=== PATIENT | female | born 1955 | race Caucasian/White ===

== ENCOUNTER 2022-03-28 16:11 | Inpatient (IN) ==
--- NOTE | 2022-03-28 16:23 | ED Triage Note ---
Date of Service March 28, 2022 History of Present Illness This patient was briefly evaluated while in triage. An abbreviated physical exam was performed. This patient is a 67-year-old Female with past medical history of asthma, hydrocephalus, hypothyroidism, HTN, who presents to the ED for evaluation of "Dr. Rosales sent me over. My blood pressure is low and I might have a blood clot in my right leg." Physical Exam VITALS: Vitals are noted on the nurse's note and reviewed by myself. GENERAL: This is a 67 year old female, in no acute distress, nondiaphoretic, well-developed well-nourished. SKIN: Edema of the mid-distal right calf HEAD: Normocephalic atraumatic. NECK: No lymphadenopathy. Cervical spine is nontender. No JVD. MUSCULOSKELETAL: No tenderness to palpation. Normal gait. NEURO: Patient was alert and oriented to person place and time. No focal neurological deficits. Initial orders for labs and / or imaging were placed and patient was placed in the waiting area until a bed is available. Please see further documentation for the full ED course. MDM / Impression Impression Impression: Acute hypotension
[2022-03-28] MEDS ORDERED: SODIUM CHLORIDE 0.9% 1000ML 1,000 ML IV ONE (16:35)
--- NOTE | 2022-03-28 16:45 | Emergency Department Note ---
History of Present Illness General Chief complaint: Hypotension Stated complaint: BLOOD PRESSURE VERY LOW. REF BY DR WALL Time Seen by Provider: 03/28/22 16:24 History of Present Illness 67-year-old female presents to the ED with a chief complaint of low blood pressure. The patient also reports feeling tired, lightheaded with standing that improves with lying flat. Hard time keeping her balance. Nausea and vomiting. Chronic diarrhea. She states that her nausea and vomiting has been going on daily for a couple of months. She vomits at least once a day and sometimes more. The patient denies any black or bloody stools. She does have a history of hypertension and has been taking her blood pressure pills. The patient reports occasional shortness of breath and chest pain but she reports this is related to her chronic asthma and COPD history. She does continue to smoke. She has chronic diarrhea related to previous colectomy and short gut syndrome. The patient's lightheadedness started a couple of days ago. She had a routine visit with her PCP today who found her to be hypotensive and sent her to the ER for evaluation. Home Medications Medication Instructions Recorded Confirmed Type gabapentin 600 mg tablet 600 mg PO HS 06/08/18 03/28/22 History levothyroxine 150 mcg tablet 150 mcg PO DAILY 06/08/18 03/28/22 History risperidone 2 mg tablet 2 mg PO HS 06/08/18 03/28/22 History sucralfate 1 gram tablet (Carafate) 1 g PO ACHS 06/08/18 03/28/22 History venlafaxine 150 mg 150 mg PO HS 06/08/18 03/28/22 History capsule,extended release 24 hr (Effexor XR) venlafaxine 75 mg capsule,extended 75 mg PO QAM 06/08/18 03/28/22 History release 24 hr (Effexor XR) diphenoxylate-atropine 2.5 1 tab PO Q6H PRN #60 tab 07/25/18 03/28/22 Rx mg-0.025 mg tablet (Lomotil) Allergies Allergy/AdvReac Type Severity Reaction Status Date / Time No Known Allergies Allergy Verified 10/14/18 13:02 Past Med/Surg History Medical History (Updated 03/28/22 @ 18:54 by Juan José Reyes DO) Asthma Asthma Bipolar depression Chronic distal aortic occlusion Depression GERD (gastroesophageal reflux disease) Herpes labialis Hydrocephalus Hypertension Hypothyroid Hypothyroidism Iliac artery occlusion, left Ischemic necrosis of small bowel Peritonitis (acute) generalized Protein calorie malnutrition Small bowel obstruction Tobacco abuse disorder Vasculopathy Surgical History H/O exploratory laparotomy H/O tubal ligation History of bowel resection History of cholecystectomy History of tubal ligation Hx laparoscopic cholecystectomy Status post small bowel resection 06/06/18 Dr. Rosario exp lap with SBO, ileostomy mucous fistula Family History Mother Uterine cancer Father Emphysema of lung Social History Smoking Status: Current every day smoker Years Smoked: 40; Cigarettes Per Day: 10; Second Hand Exposure: No; Hx Alcohol Use: No Hx Substance Use: Yes Preferred Language: Sudanese Communication Ability: Effective Visual Impairment: No Limitations [employer] Business Intelligence Developer Required: No Beliefs That Will Affect Care: None marital status: marital status details: Jordy Chu Current Living Situation: Spouse current occupational status: employed current occupation: [employer] Feels Safe at Home: Yes Assistive Devices: Denture - Upper, Denture - Lower and Glasses Review of Systems A total of 10 systems reviewed and were otherwise negative Physical Exam Vital Signs Vital Signs - 24 hr 03/28/22 16:21 03/28/22 16:24 03/28/22 16:40 Temperature 36.1 C L Temperature Source Temporal Artery Scan Pulse Rate 94 H 84 Pulse Rate [Right Finger] 80 Pulse Rhythm Regular Regular Pulse Rhythm [Right Finger] Regular Pulse Strength Normal Pulse Strength [Right Finger] Normal Respiratory Rate 20 19 24 Respiratory Effort / Characteristics Non-Labored Spontaneous Non-Labored Spontaneous Respiratory Depth Normal Normal Respiratory Pattern Regular Regular Blood Pressure 72/50 L Blood Pressure [Right Arm] 71/52 L Blood Pressure Mean 57 Blood Pressure Mean [Right Arm] 58 Blood Pressure Position Sitting Blood Pressure Position [Right Arm] Lying Pulse Oximetry 95 98 94 Oxygen Delivery Method Room Air Room Air Room Air Sepsis Recent Fever Within 48 Hours No Sepsis New/Unexplained Change in Mental Status No Sepsis Action Taken by Nursing No Action Required 03/28/22 17:20 03/28/22 18:15 Temperature Temperature Source Pulse Rate Pulse Rate [Right Finger] 97 H 88 Pulse Rhythm Pulse Rhythm [Right Finger] Regular Regular Pulse Strength Pulse Strength [Right Finger] Normal Normal Respiratory Rate 18 18 Respiratory Effort / Characteristics Non-Labored Spontaneous Non-Labored Spontaneous Respiratory Depth Normal Normal Respiratory Pattern Regular Regular Blood Pressure Blood Pressure [Right Arm] 114/69 116/64 Blood Pressure Mean Blood Pressure Mean [Right Arm] 84 81 Blood Pressure Position Blood Pressure Position [Right Arm] Lying Lying Pulse Oximetry 100 97 Oxygen Delivery Method Room Air Room Air Sepsis Recent Fever Within 48 Hours Sepsis New/Unexplained Change in Mental Status Sepsis Action Taken by Nursing CONSTITUTIONAL/VITAL SIGNS: Reviewed / noted above. GENERAL: Non-toxic in appearance. INTEGUMENTARY: Warm, dry, and [place]. HEAD: Normocephalic. EYES: without scleral icterus or trauma. ENT/OROPHARYNX: clear and moist. LYMPHADENOPATHY/NECK: Is supple without lymphadenopathy or meningismus. RESPIRATORY: Clear to auscultation bilaterally. No increased work of breathing. CARDIOVASCULAR: Regular rate and rhythm. GI/ABDOMEN: Soft and nontender. No organomegaly or pulsatile mass. EXTREMITIES: Warm and well perfused. Pedal edema present bilaterally. BACK: No CVA tenderness. NEUROLOGICAL: Intact without focal deficits. PSYCHIATRIC: normal affect. MUSCULOSKELETAL: Normally developed with good muscle tone. TRIAGE NURSING DOCUMENTATION REVIEWED. Course Administered Medications Discontinued Medications Sodium Chloride (Nss 1000ml) 1,000 mls @ 999 mls/hr IV .Q1H1M ONE Stop: 03/28/22 17:35 Last Admin: 03/28/22 16:53 Dose: 999 mls/hr Documented by: [id number] Magnesium Sulfate/Dextrose (Magnesium Sulfate / D5w) 1 gm in 100 mls @ 200 mls/hr IV Q30M ELEONORA Stop: 03/28/22 18:43 Last Admin: 03/28/22 18:17 Dose: 200 mls/hr Documented by: [id number] Medical Decision Making Differential Diagnosis Differential includes acute coronary syndrome, myocardial infarction, CVA, TIA, anemia, infection, pneumonia, UTI, pyelonephritis, poor nutrition, dehydration, electrolyte disturbance,hypoglycemia. Medical Records Attestation: I reviewed the patient's medical records. Home Medications Current Medication List: was personally reviewed by me Laboratory Data Attestation: I reviewed the patient's lab results. Result diagrams: 03/28/22 16:45 03/28/22 16:45 Lab Results 03/28/22 03/28/22 03/28/22 Range/Units 16:45 16:45 16:45 WBC 8.93 (4.8-10.8) K/ul RBC 4.12 (3.93-5.22) M/uL Hgb 13.6 (12.0-16.0) g/dl Hct 38.9 (34.1-44.9) % MCV 94.4 (80.0-100.0) fL MCH 33.0 (25.0-34.0) pg MCHC 35.0 (32.0-36.0) g/dL RDW Std Deviation 47.4 H (36.4-46.3) fL RDW Coeff of Yosef 13.5 (11.5-14.5) % Plt Count 245 (130-400) K/uL MPV 9.8 (9.4-12.3) fL Immature Gran % (Auto) 0.2 % Neut % (Auto) 64.7 % Lymph % (Auto) 26.8 % Graham % (Auto) 7.6 % Eos % (Auto) 0.3 % Baso % (Auto) 0.4 % Neut # (Auto) 5.77 (1.4-6.5) K/uL Lymph # (Auto) 2.39 (1.2-3.4) K/uL Graham # (Auto) 0.68 (0.24-0.82) K/uL Eos # (Auto) 0.03 (0-0.50) K/uL Baso # (Auto) 0.04 (0-0.2) K/uL Immature Gran # (Auto) 0.02 (0.00-0.02) K/uL PT 11.2 (9.0-12.0) Seconds INR 1.1 (0.9-1.1) APTT 27.4 (21.0-31.0) Seconds PTT Ratio 1.0 Sodium 136 (136-145) mmol/L Potassium 3.7 (3.5-5.1) mmol/L Chloride 100 (98-107) mmol/L Carbon Dioxide 29 (21-32) mmol/L Anion Gap 7 (3-11) BUN 24 H (6-23) mg/dl Creatinine 1.31 H (0.6-1.2) mg/dl Est Cr Clr Drug Dosing 32.3 ml/min Est GFR ( Amer) 49.4 ml/min Est GFR (Non-Af Amer) 42.6 ml/min BUN/Creatinine Ratio 18.3 (10-20) Glucose 81 (70-99(Fasting)) mg/dl Lactate (0.4-2.0) mmol/L Calcium 8.3 L (8.5-10.1) mg/dl Magnesium 0.6 L* (1.7-2.4) mg/dl Total Bilirubin 1.1 H (0.2-1.0) mg/dl AST 14 (13-39) U/L ALT 13 (7-52) U/L Alkaline Phosphatase 87 (34-104) U/L Troponin I High Sens 10.2 (0-14) pg/ml Total Protein 6.5 (6.0-8.3) gm/dl Albumin 3.5 (3.4-5.0) gm/dl Globulin 3.0 (2.5-4.0) gm/dl Albumin/Globulin Ratio 1.2 (0.9-2) SARS-CoV-2, RNA, NAAT (NEGATIVE) 03/28/22 03/28/22 Range/Units 16:45 Unknown WBC (4.8-10.8) K/ul RBC (3.93-5.22) M/uL Hgb (12.0-16.0) g/dl Hct (34.1-44.9) % MCV (80.0-100.0) fL MCH (25.0-34.0) pg MCHC (32.0-36.0) g/dL RDW Std Deviation (36.4-46.3) fL RDW Coeff of Yosef (11.5-14.5) % Plt Count (130-400) K/uL MPV (9.4-12.3) fL Immature Gran % (Auto) % Neut % (Auto) % Lymph % (Auto) % Graham % (Auto) % Eos % (Auto) % Baso % (Auto) % Neut # (Auto) (1.4-6.5) K/uL Lymph # (Auto) (1.2-3.4) K/uL Graham # (Auto) (0.24-0.82) K/uL Eos # (Auto) (0-0.50) K/uL Baso # (Auto) (0-0.2) K/uL Immature Gran # (Auto) (0.00-0.02) K/uL PT (9.0-12.0) Seconds INR (0.9-1.1) APTT (21.0-31.0) Seconds PTT Ratio Sodium (136-145) mmol/L Potassium (3.5-5.1) mmol/L Chloride (98-107) mmol/L Carbon Dioxide (21-32) mmol/L Anion Gap (3-11) BUN (6-23) mg/dl Creatinine (0.6-1.2) mg/dl Est Cr Clr Drug Dosing ml/min Est GFR ( Amer) ml/min Est GFR (Non-Af Amer) ml/min BUN/Creatinine Ratio (10-20) Glucose (70-99(Fasting)) mg/dl Lactate 0.9 (0.4-2.0) mmol/L Calcium (8.5-10.1) mg/dl Magnesium (1.7-2.4) mg/dl Total Bilirubin (0.2-1.0) mg/dl AST (13-39) U/L ALT (7-52) U/L Alkaline Phosphatase (34-104) U/L Troponin I High Sens (0-14) pg/ml Total Protein (6.0-8.3) gm/dl Albumin (3.4-5.0) gm/dl Globulin (2.5-4.0) gm/dl Albumin/Globulin Ratio (0.9-2) SARS-CoV-2, RNA, NAAT NEGATIVE (NEGATIVE) Imaging Data Radiologist's Impression: Venous Doppler Study 03/28/22 16:23 RIGHT LOWER EXTREMITY VENOUS DOPPLER CLINICAL HISTORY: Pain, swelling right calf COMPARISON STUDY: No previous studies for comparison. TECHNIQUE: Sonography of the deep venous system of the right lower extremity was performed. Compression and augmentation were evaluated. FINDINGS: The right common femoral, superficial femoral and popliteal veins were compressible. Augmentation was normal. Flow was shown within the deep calf vessels. IMPRESSION: No evidence of deep venous thrombus within the right lower extremity. ACT 112: Negative or not required by law. Electronically signed by: Benjamin Rodriguez M.D. 03/28/2022 6:22 PM Chest X-Ray 03/28/22 16:24 XR chest 1V portable CLINICAL HISTORY: Hypotension. COMPARISON STUDY: Chest CT July 15, 2018. Chest radiograph July 30, 2018. FINDINGS: Lung volumes are normal. Lungs are clear. There is no pneumothorax or pleural effusion. Cardiac size is normal. Mediastinal contours are normal. There is no evidence for pulmonary edema. Subtle nodular density projecting over the right lower lung is likely artifactual. IMPRESSION: No acute cardiopulmonary findings. ACT 112: Negative or not required by law. Electronically signed by: Benjamin Rodriguez M.D. 03/28/2022 5:18 PM Abdomen/Pelvis CT 03/28/22 16:45 CT abd pelvis wo con CLINICAL HISTORY: n/v daily COMPARISON STUDY: 09/08/2018 CT DOSE: 249.85 mGy.cm TECHNIQUE: Standard CT of the Abdomen and Pelvis was performed without IV contrast. The patient did not receive oral contrast. A dose lowering technique was utilized adhering to the principles of ALARA. FINDINGS: Lung base: The lung bases are clear. Abdominal cavity and bowel: There is no evidence for abdominal mass, adenopathy or ascites. There are 2 small ventral abdominal wall hernia is present, one on the right and one on the left. Loops of small bowel project into these hernias. However, no definite obstruction or incarceration is seen. The stomach is grossly distended with liquid and food stuff. There are moderately dilated loops of small bowel within the lower abdomen and pelvis. The findings are characteristic of partial small bowel obstruction. There is evidence of previous partial small bowel resection in the presence of adhesions is suggested. However, exact transition zone is not identified. There is prominent fecal material seen throughout the colon characteristic of fecal stasis. Liver: The liver is homogeneous in attenuation on these limited noncontrast images.. Spleen: The spleen is homogeneous in attenuation on these limited noncontrast images. Pancreas: The pancreas is homogeneous in attenuation on these limited noncontr ast images. Gall Bladder: Not visualized Adrenal glands: The adrenal glands are normal in size and attenuation on these limited noncontrast images. Kidneys: The kidneys are homogeneous in attenuation on these limited noncontrast images. There is no evidence for gross renal mass, calculus or hydronephrosis bilaterally. Bladder: There is no evidence for focal bladder wall thickening, calculus or diverticulum. : There is no evidence for pelvic mass or adenopathy. Vasculature: There is no evidence for focal aneurysmal dilatation of the abdo russell aorta. Atherosclerotic calcification is present. Osseous structures: There is no acute osseous pathology. Degenerative changes are seen within the spine. IMPRESSION: 1. Gross distention of the stomach with liquid and food stuff. There is also moderate dilatation of the mid to distal small bowel loops with findings characteristic of partial small bowel obstruction. Etiology is not definitely seen but is suspicious for adhesions with previous partial small bowel resection noted. 2. There are 2 ventral abdominal wall hernias, one in the left and one on the right. The small bowel loops extend into the hernia sacs with no definite obstruction or incarceration. These are more upstream from the dilated loops of small bowel. 3. Evidence for mild to moderate fecal stasis within the colon. ACT 112: Negative or not required by law. Electronically signed by: Chester Torres M.D. 03/28/2022 5:31 PM ECG Data Attestation: I personally reviewed and interpreted this ECG as follows: Additional Comments: Twelve-lead EKG: Per my interpretation there is a normal sinus rhythm at a rate of 84. No ST elevation. No PVCs. Normal QTC. MDM Narrative 67-year-old female presents with hypotension from the PCPs office after routine visit. She does report feeling nausea and vomiting daily for couple of months. She was feeling tired and lightheaded with standing. She has chronic diarrhea related to short gut syndrome secondary to a previous colectomy. Initial vital signs here reveal a blood pressure of 71/52. Heart rate is 80. She is able to stand without syncope but does feel lightheaded. Eye exam reveals some pedal edema. No abdominal tenderness. Lungs reveal some scattered wheezes bilaterally. She does have a chronic COPD history. EKG shows normal sinus rhythm. Chest x-ray did not show acute process. CT scan of the abdomen pelvis shows partial small bowel obstruction. The patient's magnesium is 0.6. BUN is 24. Troponin was negative. CBC is unremarkable. The patient was treated with a liter of IV fluid. Her blood pressure did improve with this. Because of her abnormal test results, she will be seen by the hospitalist for further evaluation and care. Impression & Plan Acute hypotension, Partial obstruction of small intestine, Vomiting, Hypomagnesemia Discharge Plan Visit Data Chief Complaint: Hypotension Stated Complaint: BLOOD PRESSURE VERY LOW. REF BY DR WALL ED Provider: Juan José Reyes Discharge Problem: Acute hypotension, Partial obstruction of small intestine, Vomiting, Hypomagnesemia Patient Disposition: Being Evaluated by Hospitalist Forms Stand Alone Forms: My [facility] Prescriptions Prescriptions: No Action sucralfate [Carafate] 1 gram Tablet 1 g PO ACHS RF: 0 Pulmicort Flexhaler 180 mcg/actuation Aerosol Powdr Breath Activated 1 inh INHALATION BID RF: 0 gabapentin 600 mg Tablet 600 mg PO HS RF: 0 levothyroxine 150 mcg Tablet 150 mcg PO DAILY RF: 0 oxybutynin chloride 5 mg Tablet 5 mg PO TID RF: 0 risperidone 2 mg Tablet 2 mg PO HS RF: 0 venlafaxine [Effexor XR] 150 mg Capsule,Extended Release 24hr 150 mg PO HS RF: 0 venlafaxine [Effexor XR] 75 mg Capsule,Extended Release 24hr 75 mg PO QAM RF: 0 ProAir RespiClick 90 mcg/actuation Aerosol Powdr Breath Activated 2 puff INHALATION Q4H PRN (Reason: Wheezing) RF: 0 diphenoxylate-atropine [Lomotil] 2.5-0.025 mg tablet 1 tab PO Q6H PRN (Reason: diarrhea) Qty: 60 RF: 0 verapamil 40 mg tablet 40 mg PO TID Qty: 90 RF: 5 ondansetron HCl [Zofran] 4 mg Tablet 4 mg PO Q8H PRN (Reason: Nausea) RF: 0 pantoprazole [Protonix] 40 mg Tablet,Delayed Release (Dr/Ec) 40 mg PO DAILY RF: 0 ranitidine HCl [Zantac] 150 mg Tablet 150 mg PO BID RF: 0 oxycodone 5 mg tablet 5 mg PO Q4H PRN (Reason: Pain) RF: 0 rivaroxaban 15 mg (42)- 20 mg (9) Tablets,Dose Pack 15 mg PO DAILY RF: 0 hydrocodone-acetaminophen [[place]] 5-325 mg tablet 1 tab PO Q6H PRN (Reason: pain) RF: 0 Referrals Referrals: Jacek Wall MD [Primary Care Provider] -
[2022-03-28 17:06] LABS: Basophils # (auto) 0.04 K/uL (0-0.2); Basophils % (auto) 0.4 %; Eosinophils # (auto) 0.03 K/uL (0-0.50); Eosinophils % (auto) 0.3 %; Hematocrit (blood only) 38.9 % (34.1-44.9); Hemoglobin 13.6 g/dl (12.0-16.0); Immature Granulocytes # (auto) 0.02 K/uL (0.00-0.02); Immature Granulocytes % (auto) 0.2 %; Lymphocytes # (auto) 2.39 K/uL (1.2-3.4); Lymphocytes % (auto) 26.8 %; Mean Corpuscular Volume 94.4 fL (80.0-100.0); Mean Platelet Volume 9.8 fL (9.4-12.3); Monocytes # (auto) 0.68 K/uL (0.24-0.82); Monocytes % (auto) 7.6 %; Neutrophils # (auto) 5.77 K/uL (1.4-6.5); Neutrophils % (auto) 64.7 %; Platelet Count 245 K/uL (130-400); RDW Coefficient of Variation 13.5 % (11.5-14.5); RDW Standard Deviation 47.4 fL (36.4-46.3); Red Blood Count 4.12 M/uL (3.93-5.22); White Blood Count 8.93 K/ul (4.8-10.8)
[2022-03-28 17:12] LABS: INR 1.1 (0.9-1.1); Partial Thromboplastin Time 27.4 Seconds (21.0-31.0); Prothrombin Time 11.2 Seconds (9.0-12.0)
--- NOTE | 2022-03-28 17:19 | XRay Report ---
XR chest 1V portable CLINICAL HISTORY: Hypotension. COMPARISON STUDY: Chest CT July 15, 2018. Chest radiograph July 30, 2018. FINDINGS: Lung volumes are normal. Lungs are clear. There is no pneumothorax or pleural effusion. Car diac size is normal. Mediastinal contours are normal. There is no evidence for pulmonary edema. Subtl e nodular density projecting over the right lower lung is likely artifactual. IMPRESSION: No acute cardiopulmonary findings. ACT 112: Negative or not required by law. Electronically signed by: Benjamin Rodriguez M.D. 03/28/2022 5:18 PM
[2022-03-28 17:22] LABS: BUN Creatinine Ratio 18.3 (10-20); Calcium 8.3 mg/dl (8.5-10.1); Creatinine Clr Calc Pharmacy 32.3 ml/min; Est GFR (African American) 49.4 ml/min; Est GFR (Non-African American) 42.6 ml/min; Potassium 3.7 mmol/L (3.5-5.1)
[2022-03-28 17:24] LABS: Albumin Globulin Ratio 1.2 (0.9-2); Albumin Level 3.5 gm/dl (3.4-5.0); Bilirubin,Total 1.1 mg/dl (0.2-1.0); Magnesium 0.6 mg/dl (1.7-2.4); Total Protein 6.5 gm/dl (6.0-8.3)
[2022-03-28 17:29] LABS: Troponin I High Sensitivity 10.2 pg/ml (0-14)
--- NOTE | 2022-03-28 17:33 | CT Scan Report ---
CT abd pelvis wo con CLINICAL HISTORY: n/v daily COMPARISON STUDY: 09/08/2018 CT DOSE: 249.85 mGy.cm TECHNIQUE: Standard CT of the Abdomen and Pelvis was performed without IV contrast. The patient did not receive oral contrast. A dose lowering technique was utilized adhering to the principles of [place]. FINDINGS: Lung base: The lung bases are clear. Abdominal cavity and bowel: There is no evidence for abdominal mass, adenopathy or ascites. There are 2 small ventral abdominal wall hernia is present, one on the right and one on the left. Loops of sma ll bowel project into these hernias. However, no definite obstruction or incarceration is seen. The stomach is grossly distended with liquid and food stuff. There are moderately dilated loops of sm all bowel within the lower abdomen and pelvis. The findings are characteristic of partial small bowel obstruction. There is evidence of previous partial small bowel resection in the presence of adhesion s is suggested. However, exact transition zone is not identified. There is prominent fecal material seen throughout the colon characteristic of fecal stasis. Liver: The liver is homogeneous in attenuation on these limited noncontrast images.. Spleen: The spleen is homogeneous in attenuation on these limited noncontrast images. Pancreas: The pancreas is homogeneous in attenuation on these limited noncontrast images. Gall Bladder: Not visualized Adrenal glands: The adrenal glands are normal in size and attenuation on these limited noncontrast im ages. Kidneys: The kidneys are homogeneous in attenuation on these limited noncontrast images. There is no evidence for gross renal mass, calculus or hydronephrosis bilaterally. Bladder: There is no evidence for focal bladder wall thickening, calculus or diverticulum. : There is no evidence for pelvic mass or adenopathy. Vasculature: There is no evidence for focal aneurysmal dilatation of the abdominal aorta. Atheroscler otic calcification is present. Osseous structures: There is no acute osseous pathology. Degenerative changes are seen within the spi ne. IMPRESSION: 1. Gross distention of the stomach with liquid and food stuff. There is also moderate dilatation of t he mid to distal small bowel loops with findings characteristic of partial small bowel obstruction. E tiology is not definitely seen but is suspicious for adhesions with previous partial small bowel rese ction noted. 2. There are 2 ventral abdominal wall hernias, one in the left and one on the right. The small bowel loops extend into the hernia sacs with no definite obstruction or incarceration. These are more upstr eam from the dilated loops of small bowel. 3. Evidence for mild to moderate fecal stasis within the colon. ACT 112: Negative or not required by law. Electronically signed by: Chester Torres M.D. 03/28/2022 5:31 PM
[2022-03-28] MEDS: MAGNESIUM SULFATE / D5W 1 GM/100 ML BAG IV SCH ×3 (18:17→22:05)
--- NOTE | 2022-03-28 18:24 | Ultrasound Report ---
RIGHT LOWER EXTREMITY VENOUS DOPPLER CLINICAL HISTORY: Pain, swelling right calf COMPARISON STUDY: No previous studies for comparison. TECHNIQUE: Sonography of the deep venous system of the right lower extremity was performed. Compress ion and augmentation were evaluated. FINDINGS: The right common femoral, superficial femoral and popliteal veins were compressible. Augme ntation was normal. Flow was shown within the deep calf vessels. IMPRESSION: No evidence of deep venous thrombus within the right lower extremity. ACT 112: Negative or not required by law. Electronically signed by: Benjamin Rodriguez M.D. 03/28/2022 6:22 PM
[2022-03-28] MEDS ORDERED: CALCIUM GLUCONATE 1,000 MG/60 ML BAG IV STA (19:00)
--- NOTE | 2022-03-28 19:07 | History & Physical Report ---
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 Partial obstruction of small intestine History of prior ischemic small bowel obstruction status post small bowel resection Admit to telemetry Consult general surgery Conservative management for now, n.p.o. and gentle IV fluid Patient currently is not vomiting therefore will not place NG tube Hold nonessential meds hold Imodium and lomtil given bowel obs Hypomagnesemia Critical at 0.6 Received 2 g in ED Will add additional 2 g on floor Repeat mag at 0000 7/7 Likely multifactorial including malabsorption in setting of small bowel resection, PPI use, reported chronic diarrhea Will place on mag oxide 400 mg twice daily Hypocalcemia 1 g calcium gluconate ordered Acute hypotension JOSHUA Creatinine 1.31, baseline 0.7 Likely secondary to GI loss as well as medications including Lasix and lisinop ril Will hold for now gentle NSS + KCL @ 75cc/hr x 2 L, re assess tomorrow need for additional fluid Diastolic CHF, compensated Patient recently hospitalized in [place] for an acute decompensation of CHF This was her first episode and she was placed on a Lasix 40 mg daily Likely this is too much for her She has not yet established with cardiology, would recommend we refer her to our cardiology at discharge Daily weights, strict I's and O's Hold Lasix and lisinopril HTN hold all oral antihypertensives COPD tobacco abuse on chantix no acute exac continue home inhalers Alcohol abuse Marijuana abuse encourage cessation awss protocol, prn ativan recommend daily thiamine and folic acid when tolerating po Bipolar continue effexor and risperidone DVT ppx: SQ Heparin Dispo: PCU given low mag FULL CODEPCP: History of Present Illness Chief Complaint: Referred by PCP secondary to hypotension Primary Care Provider: Jacek Rosales MD This is a 67-year-old female who has significant past medical history of COPD, HTN, hypothyroidism, bipolar disorder, history of ischemic small bowel obstr uction status post small bowel resection with ileostomy and eventual reversal, chronic diarrhea, chronic nausea and vomiting who presents to ED at the referral of PCP secondary to hypotension. Of significance patient was hospitalized at the end of January 2022 in [facility] and was diagnosed with acute diastolic CHF. She was diuresed and placed on oral Lasix at discharge. She also had hypokalemia and was placed on potassium supplement. She had hospital follow-up with PCP. Echocardiogram during hospitalization revealed EF 70 to 75% with grade 1 diastolic dysfunction. Today she was seen by PCP just for repeat follow-up and blood work secondary to being on diuretic. She states her weight has been up from 16- 19. She has been compliant with her medications. In clinic today she was found to be significantly hypotensive and orthostatic with BP 60 over 40s. She was referred to ED. Over the last week she complains of feeling unwell. She does complain of general lightheaded and dizziness but no nico syncope. She denies any fever, chills, sweats, chest pain, cough, hemoptysis, palpitations, abdominal pain, melena, hematochezia, dysuria, increased urgency or frequency with urination. She does have chronic shortness of breath secondary to COPD. She continues to smoke but is taking Chantix and trying to reduce her tobacco use. She does drink 3-4 1 ounce shots of tequila daily. Her last drink was yesterday. She also smokes marijuana daily last use was this morning. She does complain of chronic nausea and vomiting. She typically vomits once a day, but over the past week it has been approximately 3- 4 times a day. She also has chronic loose stool for which she takes Lomotil and Imodium for. In ED patient was significantly hypotensive with blood pressures in the 70s. She received a 500 mL bolus with improvement of blood pressures. Her magnesium was also found to be critical at 0.6. She was started on magnesium supplementation. CT abdomen pelvis revealed distended fluid and debris-filled stomach and partial small bowel obstruction likely related to adhesions. Allergies Allergy/AdvReac Type Severity Reaction Status Date / Time No Known Allergies Allergy Verified 10/14/18 13:02 Home Medications Medication Instructions Recorded Confirmed Type gabapentin 600 mg tablet 600 mg PO HS 06/08/18 03/28/22 History levothyroxine 150 mcg tablet 150 mcg PO DAILY 06/08/18 03/28/22 History risperidone 2 mg tablet 2 mg PO HS 06/08/18 03/28/22 History sucralfate 1 gram tablet (Carafate) 1 g PO ACHS 06/08/18 03/28/22 History venlafaxine 150 mg 150 mg PO HS 06/08/18 03/28/22 History capsule,extended release 24 hr (Effexor XR) venlafaxine 75 mg capsule,extended 75 mg PO QAM 06/08/18 03/28/22 History release 24 hr (Effexor XR) albuterol sulfate 90 mcg/actuation 1 inh INHALATION QID PRN 03/28/22 03/28/22 History aerosol inhaler amlodipine 2.5 mg tablet 2.5 mg PO DAILY 03/28/22 03/28/22 History cyanocobalamin (vitamin B-12) 1,000 mcg PO DAILY 03/28/22 03/28/22 History 1,000 mcg tablet diphenoxylate-atropine 2.5 2.5 mg PO Q6H 03/28/22 03/28/22 History mg-0.025 mg tablet (Lomotil) famotidine 20 mg tablet 20 mg PO BID 03/28/22 03/28/22 History fluticasone furoate 200 1 inh INHALATION DAILY 03/28/22 03/28/22 History mcg-vilanterol 25 mcg/dose inhalation powder (Breo Ellipta) furosemide 40 mg tablet 40 mg PO DAILY 03/28/22 03/28/22 History lisinopril 40 mg tablet 40 mg PO DAILY 03/28/22 03/28/22 History loperamide 2 mg tablet 2 mg PO QID 03/28/22 03/28/22 History pantoprazole 40 mg tablet,delayed 80 mg PO DAILY 03/28/22 03/28/22 History release trospium 60 mg capsule,extended 60 mg PO DAILY 03/28/22 03/28/22 History release 24 hr varenicline 1 mg tablet 1 mg PO BID 03/28/22 03/28/22 History Past Med/Surg History Medical History (Updated 03/28/22 @ 21:01 by Lizbeth Fitzgerald PA-C) Asthma Asthma Bipolar depression Chronic distal aortic occlusion Depression GERD (gastroesophageal reflux disease) Herpes labialis Hydrocephalus Hypertension Hypothyroid Hypothyroidism Iliac artery occlusion, left Ischemic necrosis of small bowel Peritonitis (acute) generalized Protein calorie malnutrition Small bowel obstruction Tobacco abuse disorder Vasculopathy Surgical History H/O exploratory laparotomy H/O tubal ligation History of bowel resection History of cholecystectomy History of tubal ligation Hx laparoscopic cholecystectomy Status post small bowel resection 06/06/18 Dr. Rosario exp lap with SBO, ileostomy mucous fistula Family History Mother Uterine cancer Father Emphysema of lung Social History (Updated 03/28/22 @ 20:59 by Lizbeth Fitzgerald PA-C) Smoking Status: Current every day smoker Years Smoked: 40; Cigarettes Per Day: 10; Second Hand Exposure: No; Hx Alcohol Use: Yes Alcohol type: hard liquor Alcohol Intake Frequency Comment: 3-4 1 ounce shots daily Hx Substance Use: Yes Non-Prescribed Medications: Marijuana Non-Prescribed Medications Comment: Daily Last Used Substance: Just Prior to Arrival Preferred Language: Faroese Communication Ability: Effective Visual Impairment: No Limitations Manager [place] Required: No Beliefs That Will Affect Care: None marital status: marital status details: Jordy Chu Current Living Situation: Spouse current occupational status: employed current occupation: [employer] Feels Safe at Home: Yes Assistive Devices: Denture - Upper, Denture - Lower and Glasses Review of Systems Review of Systems: All systems reviewed & are unremarkable except as noted in HPI & below Physical Exam Physical Exam: Constitutional: Chronically ill-appearing female,vitals as above, NAD, sitting up in bed, pleasant, conversing easily Head: Normocephalic, Atraumatic Eyes: PERRL, conjunctivae normal, anicteric sclerae ENMT: external ear and nose normal, oropharynx normal Neck: trachea midline, no thyromegaly normal visual inspection Respiratory: normal respiratory effort, lungs clear to auscultation, no wheeze, rales, rhonchi. Normal insp/exp effort, no accessory muscle use Cardiovascular: RRR, no murmur, no edema Vessels: no JVD or carotid bruit Chest: normal inspection of chest Abdomen: normal bowel sounds, soft, mildly tender to palpation epigastrium, no rebound, no guarding, no rigidity, no hepatosplenomegaly Musculoskeletal: no cyanosis or clubbing, extremities motor strength 5/5 Skin: no rashes, warm and dry normal turgor Neurologic: PERRL, EOMI, accommodation nl, no face palsy, no dysarthria CN's II-XI intact bilaterally and moves all extremities Psychiatric: A+Ox3, euthymic affect Lymphatic: no cervical or axillary lymphadenopathy : deferred Results & Data Results & Data ([facility]) Vital Signs (Past 12 Hours) Vital Signs Temp Pulse Pulse Resp BP BP Pulse Ox 03/28/22 19:00 80 87 19 100/42 L 97 03/28/22 18:50 82 17 95 03/28/22 18:45 81 16 124/56 L 95 03/28/22 18:40 79 16 96 03/28/22 18:30 83 22 109/61 95 03/28/22 18:20 85 19 94 03/28/22 18:15 88 88 19 116/64 116/64 95 03/28/22 17:40 87 20 96 03/28/22 17:30 90 15 112/46 L 100 03/28/22 17:20 88 97 H 19 114/69 98 03/28/22 17:17 83 18 114/69 100 03/28/22 17:10 84 23 100 03/28/22 17:05 81 22 100/53 L 03/28/22 16:50 85 19 03/28/22 16:40 81 80 17 71/52 L 94 03/28/22 16:37 84 22 03/28/22 16:24 84 19 98 03/28/22 16:21 36.1 C L 94 H 20 72/50 L 95 Diagnostic Findings Venous Doppler Study 03/28/22 16:23 RIGHT LOWER EXTREMITY VENOUS DOPPLER CLINICAL HISTORY: Pain, swelling right calf COMPARISON STUDY: No previous studies for comparison. TECHNIQUE: Sonography of the deep venous system of the right lower extremity was performed. Compression and augmentation were evaluated. FINDINGS: The right common femoral, superficial femoral and popliteal veins were compressible. Augmentation was normal. Flow was shown within the deep calf vessels. IMPRESSION: No evidence of deep venous thrombus within the right lower extr emity. ACT 112: Negative or not required by law. Electronically signed by: Benjamin Rodriguez M.D. 03/28/2022 6:22 PM Chest X-Ray 03/28/22 16:24 XR chest 1V portable CLINICAL HISTORY: Hypotension. COMPARISON STUDY: Chest CT July 15, 2018. Chest radiograph July 30, 2018. FINDINGS: Lung volumes are normal. Lungs are clear. There is no pneumothorax or pleural effusion. Cardiac size is normal. Mediastinal contours are normal. There is no evidence for pulmonary edema. Subtle nodular density projecting over the right lower lung is likely artifactual. IMPRESSION: No acute cardiopulmonary findings. ACT 112: Negative or not required by law. Electronically signed by: Benjamin Rodriguez M.D. 03/28/2022 5:18 PM Abdomen/Pelvis CT 03/28/22 16:45 CT abd pelvis wo con CLINICAL HISTORY: n/v daily COMPARISON STUDY: 09/08/2018 CT DOSE: 249.85 mGy.cm TECHNIQUE: Standard CT of the Abdomen and Pelvis was performed without IV contrast. The patient did not receive oral contrast. A dose lowering technique was utilized adhering to the principles of ALARA. FINDINGS: Lung base: The lung bases are clear. Abdominal cavity and bowel: There is no evidence for abdominal mass, adenopathy or ascites. There are 2 small ventral abdominal wall hernia is present, one on the right and one on the left. Loops of small bowel project into these hernias. However, no definite obstruction or incarceration is seen. The stomach is grossly distended with liquid and food stuff. There are moderately dilated loops of small bowel within the lower abdomen and pelvis. The findings are characteristic of partial small bowel obstruction. There is evidence of previous partial small bowel resection in the presence of adhesions is suggested. However, exact transition zone is not identified. There is prominent fecal material seen throughout the colon characteristic of fecal stasis. Liver: The liver is homogeneous in attenuation on these limited noncontrast images.. Spleen: The spleen is homogeneous in attenuation on these limited noncontrast images. Pancreas: The pancreas is homogeneous in attenuation on these limited noncontrast images. Gall Bladder: Not visualized Adrenal glands: The adrenal glands are normal in size and attenuation on these limited noncontrast images. Kidneys: The kidneys are homogeneous in attenuation on these limited noncontrast images. There is no evidence for gross renal mass, calculus or hydronephrosis bilaterally. Bladder: There is no evidence for focal bladder wall thickening, calculus or diverticulum. : There is no evidence for pelvic mass or adenopathy. Vasculature: There is no evidence for focal aneurysmal dilatation of the abdominal aorta. Atherosclerotic calcification is present. Osseous structures: There is no acute osseous pathology. Degenerative changes are seen within the spine. IMPRESSION: 1. Gross distention of the stomach with liquid and food stuff. There is also moderate dilatation of the mid to distal small bowel loops with findings characteristic of partial small bowel obstruction. Etiology is not definitely seen but is suspicious for adhesions with previous partial small bowel resection noted. 2. There are 2 ventral abdominal wall hernias, one in the left and one on the right. The small bowel loops extend into the hernia sacs with no definite obstruction or incarceration. These are more upstream from the dilated loops of small bowel. 3. Evidence for mild to moderate fecal stasis within the colon. ACT 112: Negative or not required by law. Electronically signed by: Chester Torres M.D. 03/28/2022 5:31 PM Medications Administered Medication List Discontinued Medications Sodium Chloride (Nss 1000ml) 1,000 mls @ 999 mls/hr IV .Q1H1M ONE Stop: 03/28/22 17:35 Last Infusion: 03/28/22 19:40 Dose: 0 mls/hr Documented by: [id number] Admin: 03/28/22 16:53 Dose: 999 mls/hr Documented by: [id number] Magnesium Sulfate/Dextrose (Magnesium Sulfate / D5w) 1 gm in 100 mls @ 200 mls/hr IV Q30M ELEONORA Stop: 03/28/22 18:43 Last Infusion: 03/28/22 18:47 Dose: 0 mls/hr Documented by: [id number] Admin: 03/28/22 18:17 Dose: 200 mls/hr Documented by: [id number] Calcium Gluconate () 1,000 mg in 60 mls @ 240 mls/hr IV NOW STA Stop: 03/28/22 19:14 Last Infusion: 03/28/22 20:10 Dose: 0 mls/hr Documented by: [id number] Admin: 03/28/22 19:55 Dose: 240 mls/hr Documented by: [id number] ECG Rate (beats per minute): 84 Rhythm: normal sinus COVID-19 Results Results COVID-19 Adm Lab Results: RBC 4.12 M/uL (3.93-5.22) 03/28/22 WBC 8.93 K/ul (4.8-10.8) 03/28/22 Hgb 13.6 g/dl (12.0-16.0) 03/28/22 Hct 38.9 % (34.1-44.9) 03/28/22 Plt Count 245 K/uL (130-400) 03/28/22 Neutrophils (%) (Auto) 64.7 % 03/28/22 Lymphocytes (%) (Auto) 26.8 % 03/28/22 Monocytes # (Auto) 0.68 K/uL (0.24-0.82) 03/28/22 Eosinophils # (Auto) 0.03 K/uL (0-0.50) 03/28/22 Immature Granulocyte % (Auto) 0.2 % 03/28/22 Neutrophils # (Auto) 5.77 K/uL (1.4-6.5) 03/28/22 Lymphocytes # (Auto) 2.39 K/uL (1.2-3.4) 03/28/22 Monocytes # (Auto) 0.68 K/uL (0.24-0.82) 03/28/22 Eosinophils # (Auto) 0.03 K/uL (0-0.50) 03/28/22 Basophils # (Auto) 0.04 K/uL (0-0.2) 03/28/22 Immature Granulocyte # (Auto) 0.02 K/uL (0.00-0.02) 03/28/22 Na 136 mmol/L (136-145) 03/28/22 K 3.7 mmol/L (3.5-5.1) 03/28/22 Cl 100 mmol/L (98-107) 03/28/22 CO2 29 mmol/L (21-32) 03/28/22 Anion Gap 7 (3-11) 03/28/22 BUN 24 mg/dl (6-23) H 03/28/22 Creatinine 1.31 mg/dl (0.6-1.2) H 03/28/22 BUN/Creatinine Ratio 18.3 (10-20) 03/28/22 Glucose Level 81 mg/dl (70-99(Fasting)) 03/28/22 Ca 8.3 mg/dl (8.5-10.1) L 03/28/22 Phosphorus Level 3.9 mg/dl (2.5-4.9) 03/28/22 Total Bilirubin 1.1 mg/dl (0.2-1.0) H 03/28/22 AST/SGOT 14 U/L (13-39) 03/28/22 ALT/SGPT 13 U/L (7-52) 03/28/22 Alkaline Phosphatase 87 U/L (34-104) 03/28/22 Total Protein 6.5 gm/dl (6.0-8.3) 03/28/22 Albumin 3.5 gm/dl (3.4-5.0) 03/28/22 Globulin 3.0 gm/dl (2.5-4.0) 03/28/22 Albumin/Globulin Ratio 1.2 (0.9-2) 03/28/22 PTT 27.4 Seconds (21.0-31.0) 03/28/22 INR 1.1 (0.9-1.1) 03/28/22 SARS-CoV-2, RNA, NAAT NEGATIVE (NEGATIVE) 03/28/22 Chest X-Ray 03/28/22 Code Status & VTE Plan Code Status Full code VTE Prophylaxis Plan VTE Prophylaxis will be ordered: Yes Supervising Physician Co-Signing Physician Notes Attending addendum: The patient was seen and examined in the emergency room in presence of the . She has been complaining of abdominal pain with distention for the last 2 to 3 days and has had nausea at home She was noted to have low blood pressure in the doctor's office today and was sent to the emergency room for further evaluation Denies any shortness of breath, chest pain or palpitation On examination No apparent distress at rest Hemodynamically stable with blood pressure on the lower side Chestclear to auscultate bilaterally HeartS1, S2 regular without any murmur Abdomenminimally distended epigastrium, soft, mildly tender in the epigastrium and bowel sounds present Extremitiestrace edema bilaterally more on the left side than the right CNSalert, awake and oriented x3 Admission labs, EKG and imaging studies reviewed Significant findings include partial small bowel obstruction with hypomagnese judy, JOSHUA and hypotension Assessment and plan Has partial small bowel obstruction likely secondary to adhesions from prior surgery Hypomagnesemia with hypotension and JOSHUA likely secondary to ongoing dehydration due to diarrhea and not being able to eat and drink the last few days Agree with the assessment and plan as outlined above by Lizbeth Hardin
[2022-03-28] MEDS ORDERED: POLYETHYLENE (MIRALAX) 17 GM PACK PO PRN (21:04)
[2022-03-28] MEDS ORDERED: LORazepam 1 MG TAB PO PRN (21:04)
[2022-03-28] MEDS ORDERED: ALUMINUM/MAGNESIUM SUSP 30 ML UDC PO PRN (21:04)
[2022-03-28] MEDS ORDERED: FAMOTIDINE 20 MG TAB PO SCH ×2 (21:04)
[2022-03-28] MEDS ORDERED: ACETAMINOPHEN 325 MG TAB PO PRN (21:04)
[2022-03-28] MEDS ORDERED: ALBUTEROL HFA 8 GM INHALER INH PRN (21:09)
[2022-03-28] MEDS: NSS + 20MEQ KCL 20 MEQ/1,000 ML BAG IV SCH (22:01)
[2022-03-28] MEDS: MAGNESIUM OXIDE 400 MG TAB PO SCH (22:12)
[2022-03-28] MEDS: risperiDONE 2 MG TABLET PO SCH (22:12)
[2022-03-28] MEDS: VENLAFAXINE HCL XR 150 MG CAPXR PO SCH (22:13)
[2022-03-28] MEDS: FAMOTIDINE 20 MG TAB PO SCH (22:42)
[2022-03-29] MEDS: MAGNESIUM SULFATE / D5W 1 GM/100 ML BAG IV SCH (00:09)
[2022-03-29 07:07] LABS: Basophils # (auto) 0.04 K/uL (0-0.2); Basophils % (auto) 0.5 %; Eosinophils # (auto) 0.07 K/uL (0-0.50); Hematocrit (blood only) 38.4 % (34.1-44.9); Hemoglobin 13.4 g/dl (12.0-16.0); Immature Granulocytes # (auto) 0.02 K/uL (0.00-0.02); Immature Granulocytes % (auto) 0.3 %; Lymphocytes # (auto) 1.27 K/uL (1.2-3.4); Lymphocytes % (auto) 17.4 %; Mean Corpuscular Hemoglobin 32.4 pg (25.0-34.0); Mean Corpuscular Hgb Conc 34.9 g/dL (32.0-36.0); Mean Corpuscular Volume 92.8 fL (80.0-100.0); Mean Platelet Volume 9.9 fL (9.4-12.3); Monocytes # (auto) 0.76 K/uL (0.24-0.82); Monocytes % (auto) 10.4 %; Neutrophils # (auto) 5.13 K/uL (1.4-6.5); Neutrophils % (auto) 70.4 %; Platelet Count 237 K/uL (130-400); RDW Coefficient of Variation 13.2 % (11.5-14.5); RDW Standard Deviation 44.6 fL (36.4-46.3); Red Blood Count 4.14 M/uL (3.93-5.22); White Blood Count 7.29 K/ul (4.8-10.8)
[2022-03-29 07:20] LABS: Albumin Globulin Ratio 1.2 (0.9-2); BUN Creatinine Ratio 26.3 (10-20); Bilirubin,Total 0.8 mg/dl (0.2-1.0); Calcium 7.5 mg/dl (8.5-10.1); Creatinine Clr Calc Pharmacy 55.7 ml/min; Est GFR (African American) 95.4 ml/min; Est GFR (Non-African American) 82.3 ml/min; Globulin 2.6 gm/dl (2.5-4.0); Magnesium 1.9 mg/dl (1.7-2.4); Phosphorus 3.2 mg/dl (2.5-4.9); Potassium 3.6 mmol/L (3.5-5.1); Total Protein 5.6 gm/dl (6.0-8.3)
[2022-03-29] MEDS: LEVOTHYROXINE SODIUM 150 MCG TABLET PO SCH (07:31)
[2022-03-29] MEDS: ONDANSETRON INJ 2 MG/ML 2 ML VIAL IV PRN ×2 (08:22→14:23)
--- NOTE | 2022-03-29 08:33 | XRay Report ---
KUB CLINICAL HISTORY: Partial small bowel obstruction. COMPARISON STUDY: CT of the abdomen and pelvis March 28, 2022. FINDINGS: A loop of mildly dilated small bowel within the lower abdomen measures 4 cm in caliber. Thi s has slightly decreased since prior CT. Of note, fluid-filled small bowel loops are difficult to ass ess by radiography. Right abdominal bowel anastomosis is noted. Sensitivity for detection of free air is diminished on this supine exam but none is identified. IMPRESSION: Mild decrease in small bowel dilatation. This favors a partial small bowel obstruction. ACT 112: Negative or not required by law. Electronically signed by: Benjamin Rodriguez M.D. 03/29/2022 8:32 AM
[2022-03-29] MEDS: VENLAFAXINE HCL XR 75 MG CAPXR PO SCH (09:40)
[2022-03-29] MEDS: MAGNESIUM OXIDE 400 MG TAB PO SCH ×2 (09:40→21:23)
[2022-03-29] MEDS: FAMOTIDINE 20 MG TAB PO SCH ×2 (09:40→21:23)
[2022-03-29] MEDS: FLUTICASONE/VILANTEROL 200/25MCG 14 PUFFS/INHALER INH SCH (09:40)
[2022-03-29] MEDS: HEPARIN SOD 5,000 UNIT/0.5 ML VIAL SQ SCH ×2 (09:40→21:23)
[2022-03-29] MEDS: NSS + 20MEQ KCL 20 MEQ/1,000 ML BAG IV SCH (09:41)
--- NOTE | 2022-03-29 11:03 | Surgery Consultation ---
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 CT scan of abd and pelvis showing partial SBO with distended stomach. KUB today showing improved small bowel dilatation favoring partial obstruction. No leukocytosis. Abdomen is soft, nondistended, nontender. Plan: No acute surgical intervention required at this time. Can have sips of clears, take slowly encourage ambulation Her chronic nausea and vomiting may not be related to this PSBO, may need outpatient GI evaluation? continue current medical management Dr. Faulkner was present during my examination and agrees with above. History of Present Illness Reason for Consultation: Partial SBO Requesting Physician: Lizbeth Fitzgerald PA-C Attending Physician: Eddie Hardin MD History of Present Illness Lisa is a 67 year-old female with history of COPD, hypothyroidism, hypertension, Diastolic CHF, and history of small bowel resection with ileostomy and reversal in 2018 for ischemic bowel by Dr. Rosario presented to ED from PCP office due to hypotension as well as 2-3 day history of nausea and vomiting. She states that for last month she has had daily nausea as well as vomiting but in last few days vomiting increase. No significant abdominal pain with this nausea or vomiting. No abdominal distention. Daily diarrhea since her prior bowel surgery. ER work-up showed partial SBO on CT scan of abdomen and pelvis with two ventral hernias without evidence of bowel obstruction at the hernias with fecal retention in colon. She has not had a bowel obstruction since her prior surgery. Today she is feeling better than yesterday. Had a formed bowel movement this am but not passing much gas. No abdominal pain. Still nauseated with episode of vomiting this am. Allergies Allergy/AdvReac Type Severity Reaction Status Date / Time No Known Allergies Allergy Verified 10/14/18 13:02 Home Medications Medication Instructions Recorded Confirmed Type gabapentin 600 mg tablet 600 mg PO HS 06/08/18 03/28/22 History levothyroxine 150 mcg tablet 150 mcg PO DAILY 06/08/18 03/28/22 History risperidone 2 mg tablet 2 mg PO HS 06/08/18 03/28/22 History sucralfate 1 gram tablet (Carafate) 1 g PO ACHS 06/08/18 03/28/22 History venlafaxine 150 mg 150 mg PO HS 06/08/18 03/28/22 History capsule,extended release 24 hr (Effexor XR) venlafaxine 75 mg capsule,extended 75 mg PO QAM 06/08/18 03/28/22 History release 24 hr (Effexor XR) albuterol sulfate 90 mcg/actuation 1 inh INHALATION QID PRN 03/28/22 03/28/22 History aerosol inhaler amlodipine 2.5 mg tablet 2.5 mg PO DAILY 03/28/22 03/28/22 History cyanocobalamin (vitamin B-12) 1,000 mcg PO DAILY 03/28/22 03/28/22 History 1,000 mcg tablet diphenoxylate-atropine 2.5 2.5 mg PO Q6H 03/28/22 03/28/22 History mg-0.025 mg tablet (Lomotil) famotidine 20 mg tablet 20 mg PO BID 03/28/22 03/28/22 History fluticasone furoate 200 1 inh INHALATION DAILY 03/28/22 03/28/22 History mcg-vilanterol 25 mcg/dose inhalation powder (Breo Ellipta) furosemide 40 mg tablet 40 mg PO DAILY 03/28/22 03/28/22 History lisinopril 40 mg tablet 40 mg PO DAILY 03/28/22 03/28/22 History loperamide 2 mg tablet 2 mg PO QID 03/28/22 03/28/22 History pantoprazole 40 mg tablet,delayed 80 mg PO DAILY 03/28/22 03/28/22 History release trospium 60 mg capsule,extended 60 mg PO DAILY 03/28/22 03/28/22 History release 24 hr varenicline 1 mg tablet 1 mg PO BID 03/28/22 03/28/22 History Patient History Medical History (Updated 03/29/22 @ 11:11 by Purnima Maurer PA-C) Asthma Asthma Bipolar depression Chronic distal aortic occlusion Depression GERD (gastroesophageal reflux disease) Herpes labialis Hydrocephalus Hypertension Hypothyroid Hypothyroidism Iliac artery occlusion, left Ischemic necrosis of small bowel Peritonitis (acute) generalized Protein calorie malnutrition Small bowel obstruction Tobacco abuse disorder Vasculopathy Surgical History H/O exploratory laparotomy H/O tubal ligation History of bowel resection History of cholecystectomy History of tubal ligation Hx laparoscopic cholecystectomy Status post small bowel resection 06/06/18 Dr. Rosario exp lap with SBO, ileostomy mucous fistula Family History Mother Uterine cancer Father Emphysema of lung Social History (Updated 03/28/22 @ 20:59 by Lizbeth Fitzgerald PA-C) Smoking Status: Current every day smoker Years Smoked: 40; Cigarettes Per Day: 10; Second Hand Exposure: No; Do You Dip or Chew Tobacco: No; Tobacco Cessation Education Requested by Patient: No Hx Alcohol Use: Yes Alcohol type: hard liquor Alcohol Intake Frequency Comment: 3-4 1 ounce shots daily Hx Substance Use: Yes Non-Prescribed Medications: Marijuana Non-Prescribed Medications Comment: Daily Last Used Substance: Just Prior to Arrival Preferred Language: Mozambican Communication Ability: Effective Visual Impairment: No Limitations Lap Maker Required: No Beliefs That Will Affect Care: None marital status: marital status details: [facility] Current Living Situation: Spouse current occupational status: employed current occupation: [employer] Other Information That Helps Us Care for You: No Feels Safe at Home: Yes Safety Concerns: Feels Safe At This Time Assistive Devices: None Physical Exam Constitutional: WD/WN, vitals as above no acute distress and not ill appearing Neck: normal visual inspection and trachea midline Respiratory: normal respiratory effort, lungs clear to auscultation Cardiovascular: RRR, no murmur, no edema Gastrointestinal (Abdomen): Inspection/Auscultation: abdomen normal to inspection and + abdominal surgical scar (midline laparotomy, right and left transverse incision sites); abdomen not distended Percussion/Palpation: abdomen soft and + hernia (at right and left abdominal incision sites, reducible, nontender); abdomen nontender, no guarding and abdomen not rigid Skin: no rashes, warm and dry no jaundice Psychiatric: Orientation: alert and oriented x 3 Results & Data ([facility]) Vital Signs (Past 12 Hours) Vital Signs Temp Pulse Pulse Resp BP Pulse Ox 03/29/22 10:24 36.4 C L 80 19 98/55 L 94 03/29/22 10:09 97 H 03/29/22 07:12 36.8 C 82 20 96/49 L 93 03/29/22 03:53 36.7 C 81 16 107/61 91 03/28/22 23:13 36.6 C 79 18 106/50 L 95 Laboratory Results 03/29/22 03/29/22 03/29/22 Range/Units 06:27 06:27 06:27 WBC 7.29 (4.8-10.8) K/ul RBC 4.14 (3.93-5.22) M/uL Hgb 13.4 (12.0-16.0) g/dl Hct 38.4 (34.1-44.9) % MCV 92.8 (80.0-100.0) fL MCH 32.4 (25.0-34.0) pg MCHC 34.9 (32.0-36.0) g/dL RDW Std Deviation 44.6 (36.4-46.3) fL RDW Coeff of Yosef 13.2 (11.5-14.5) % Plt Count 237 (130-400) K/uL MPV 9.9 (9.4-12.3) fL Immature Gran % (Auto) 0.3 % Neut % (Auto) 70.4 % Lymph % (Auto) 17.4 % [place] % (Auto) 10.4 % Eos % (Auto) 1.0 % Baso % (Auto) 0.5 % Neut # (Auto) 5.13 (1.4-6.5) K/uL Lymph # (Auto) 1.27 (1.2-3.4) K/uL [place] # (Auto) 0.76 (0.24-0.82) K/uL Eos # (Auto) 0.07 (0-0.50) K/uL Baso # (Auto) 0.04 (0-0.2) K/uL Immature Gran # (Auto) 0.02 (0.00-0.02) K/uL PT (9.0-12.0) Seconds INR (0.9-1.1) APTT (21.0-31.0) Seconds PTT Ratio Sodium 139 (136-145) mmol/L Potassium 3.6 (3.5-5.1) mmol/L Chloride 104 (98-107) mmol/L Carbon Dioxide 28 (21-32) mmol/L Anion Gap 7 (3-11) BUN 20 (6-23) mg/dl Creatinine 0.76 D (0.6-1.2) mg/dl Est Cr Clr Drug Dosing 55.7 ml/min Est GFR ( Amer) 95.4 ml/min Est GFR (Non-Af Amer) 82.3 ml/min BUN/Creatinine Ratio 26.3 H (10-20) Glucose 86 (70-99(Fasting)) mg/dl Lactate (0.4-2.0) mmol/L Calcium 7.5 L (8.5-10.1) mg/dl Phosphorus 3.2 (2.5-4.9) mg/dl Magnesium 1.9 (1.7-2.4) mg/dl Total Bilirubin 0.8 (0.2-1.0) mg/dl AST 11 L (13-39) U/L ALT 11 (7-52) U/L Alkaline Phosphatase 79 (34-104) U/L Troponin I High Sens (0-14) pg/ml Total Protein 5.6 L (6.0-8.3) gm/dl Albumin 3.0 L (3.4-5.0) gm/dl Globulin 2.6 (2.5-4.0) gm/dl Albumin/Globulin Ratio 1.2 (0.9-2) Hepatitis C Ab (EIA) Pending Hep C Ab Signal/Cutoff Pending SARS-CoV-2, RNA, NAAT (NEGATIVE) 03/29/22 03/28/22 03/28/22 Range/Units 00:18 Unknown 16:45 WBC (4.8-10.8) K/ul RBC (3.93-5.22) M/uL Hgb (12.0-16.0) g/dl Hct (34.1-44.9) % MCV (80.0-100.0) fL MCH (25.0-34.0) pg MCHC (32.0-36.0) g/dL RDW Std Deviation (36.4-46.3) fL RDW Coeff of Yosef (11.5-14.5) % Plt Count (130-400) K/uL MPV (9.4-12.3) fL Immature Gran % (Auto) % Neut % (Auto) % Lymph % (Auto) % [place] % (Auto) % Eos % (Auto) % Baso % (Auto) % Neut # (Auto) (1.4-6.5) K/uL Lymph # (Auto) (1.2-3.4) K/uL [place] # (Auto) (0.24-0.82) K/uL Eos # (Auto) (0-0.50) K/uL Baso # (Auto) (0-0.2) K/uL Immature Gran # (Auto) (0.00-0.02) K/uL PT (9.0-12.0) Seconds INR (0.9-1.1) APTT (21.0-31.0) Seconds PTT Ratio Sodium (136-145) mmol/L Potassium (3.5-5.1) mmol/L Chloride (98-107) mmol/L Carbon Dioxide (21-32) mmol/L Anion Gap (3-11) BUN (6-23) mg/dl Creatinine (0.6-1.2) mg/dl Est Cr Clr Drug Dosing ml/min Est GFR ( Amer) ml/min Est GFR (Non-Af Amer) ml/min BUN/Creatinine Ratio (10-20) Glucose (70-99(Fasting)) mg/dl Lactate (0.4-2.0) mmol/L Calcium (8.5-10.1) mg/dl Phosphorus 3.9 (2.5-4.9) mg/dl Magnesium 1.8 (1.7-2.4) mg/dl Total Bilirubin (0.2-1.0) mg/dl AST (13-39) U/L ALT (7-52) U/L Alkaline Phosphatase (34-104) U/L Troponin I High Sens (0-14) pg/ml Total Protein (6.0-8.3) gm/dl Albumin (3.4-5.0) gm/dl Globulin (2.5-4.0) gm/dl Albumin/Globulin Ratio (0.9-2) Hepatitis C Ab (EIA) Hep C Ab Signal/Cutoff SARS-CoV-2, RNA, NAAT NEGATIVE (NEGATIVE) 03/28/22 03/28/22 03/28/22 Range/Units 16:45 16:45 16:45 WBC (4.8-10.8) K/ul RBC (3.93-5.22) M/uL Hgb (12.0-16.0) g/dl Hct (34.1-44.9) % MCV (80.0-100.0) fL MCH (25.0-34.0) pg MCHC (32.0-36.0) g/dL RDW Std Deviation (36.4-46.3) fL RDW Coeff of Yosef (11.5-14.5) % Plt Count (130-400) K/uL MPV (9.4-12.3) fL Immature Gran % (Auto) % Neut % (Auto) % Lymph % (Auto) % [place] % (Auto) % Eos % (Auto) % Baso % (Auto) % Neut # (Auto) (1.4-6.5) K/uL Lymph # (Auto) (1.2-3.4) K/uL [place] # (Auto) (0.24-0.82) K/uL Eos # (Auto) (0-0.50) K/uL Baso # (Auto) (0-0.2) K/uL Immature Gran # (Auto) (0.00-0.02) K/uL PT 11.2 (9.0-12.0) Seconds INR 1.1 (0.9-1.1) APTT 27.4 (21.0-31.0) Seconds PTT Ratio 1.0 Sodium 136 (136-145) mmol/L Potassium 3.7 (3.5-5.1) mmol/L Chloride 100 (98-107) mmol/L Carbon Dioxide 29 (21-32) mmol/L Anion Gap 7 (3-11) BUN 24 H (6-23) mg/dl Creatinine 1.31 H (0.6-1.2) mg/dl Est Cr Clr Drug Dosing 32.3 ml/min Est GFR ( Amer) 49.4 ml/min Est GFR (Non-Af Amer) 42.6 ml/min BUN/Creatinine Ratio 18.3 (10-20) Glucose 81 (70-99(Fasting)) mg/dl Lactate 0.9 (0.4-2.0) mmol/L Calcium 8.3 L (8.5-10.1) mg/dl Phosphorus (2.5-4.9) mg/dl Magnesium 0.6 L* (1.7-2.4) mg/dl Total Bilirubin 1.1 H (0.2-1.0) mg/dl AST 14 (13-39) U/L ALT 13 (7-52) U/L Alkaline Phosphatase 87 (34-104) U/L Troponin I High Sens 10.2 (0-14) pg/ml Total Protein 6.5 (6.0-8.3) gm/dl Albumin 3.5 (3.4-5.0) gm/dl Globulin 3.0 (2.5-4.0) gm/dl Albumin/Globulin Ratio 1.2 (0.9-2) Hepatitis C Ab (EIA) Hep C Ab Signal/Cutoff SARS-CoV-2, RNA, NAAT (NEGATIVE) 03/28/22 Range/Units 16:45 WBC 8.93 (4.8-10.8) K/ul RBC 4.12 (3.93-5.22) M/uL Hgb 13.6 (12.0-16.0) g/dl Hct 38.9 (34.1-44.9) % MCV 94.4 (80.0-100.0) fL MCH 33.0 (25.0-34.0) pg MCHC 35.0 (32.0-36.0) g/dL RDW Std Deviation 47.4 H (36.4-46.3) fL RDW Coeff of Yosef 13.5 (11.5-14.5) % Plt Count 245 (130-400) K/uL MPV 9.8 (9.4-12.3) fL Immature Gran % (Auto) 0.2 % Neut % (Auto) 64.7 % Lymph % (Auto) 26.8 % [place] % (Auto) 7.6 % Eos % (Auto) 0.3 % Baso % (Auto) 0.4 % Neut # (Auto) 5.77 (1.4-6.5) K/uL Lymph # (Auto) 2.39 (1.2-3.4) K/uL [place] # (Auto) 0.68 (0.24-0.82) K/uL Eos # (Auto) 0.03 (0-0.50) K/uL Baso # (Auto) 0.04 (0-0.2) K/uL Immature Gran # (Auto) 0.02 (0.00-0.02) K/uL PT (9.0-12.0) Seconds INR (0.9-1.1) APTT (21.0-31.0) Seconds PTT Ratio Sodium (136-145) mmol/L Potassium (3.5-5.1) mmol/L Chloride (98-107) mmol/L Carbon Dioxide (21-32) mmol/L Anion Gap (3-11) BUN (6-23) mg/dl Creatinine (0.6-1.2) mg/dl Est Cr Clr Drug Dosing ml/min Est GFR ( Amer) ml/min Est GFR (Non-Af Amer) ml/min BUN/Creatinine Ratio (10-20) Glucose (70-99(Fasting)) mg/dl Lactate (0.4-2.0) mmol/L Calcium (8.5-10.1) mg/dl Phosphorus (2.5-4.9) mg/dl Magnesium (1.7-2.4) mg/dl Total Bilirubin (0.2-1.0) mg/dl AST (13-39) U/L ALT (7-52) U/L Alkaline Phosphatase (34-104) U/L Troponin I High Sens (0-14) pg/ml Total Protein (6.0-8.3) gm/dl Albumin (3.4-5.0) gm/dl Globulin (2.5-4.0) gm/dl Albumin/Globulin Ratio (0.9-2) Hepatitis C Ab (EIA) Hep C Ab Signal/Cutoff SARS-CoV-2, RNA, NAAT (NEGATIVE) Diagnostic Findings CT abd pelvis wo con CLINICAL HISTORY: n/v daily COMPARISON STUDY: 09/08/2018 CT DOSE: 249.85 mGy.cm TECHNIQUE: Standard CT of the Abdomen and Pelvis was performed without IV contrast. The patient did not receive oral contrast. A dose lowering technique was utilized adhering to the principles of ALARA. FINDINGS: Lung base: The lung bases are clear. Abdominal cavity and bowel: There is no evidence for abdominal mass, adenopathy or ascites. There are 2 small ventral abdominal wall hernia is present, one on the right and one on the left. Loops of small bowel project into these hernias. However, no definite obstruction or incarceration is seen. The stomach is grossly distended with liquid and food stuff. There are moderately dilated loops of small bowel within the lower abdomen and pelvis. The findings are characteristic of partial small bowel obstruction. There is evidence of previous partial small bowel resection in the presence of adhesions is suggested. However, exact transition zone is not identified. There is prominent fecal material seen throughout the colon characteristic of fecal stasis. Liver: The liver is homogeneous in attenuation on these limited noncontrast images.. Spleen: The spleen is homogeneous in attenuation on these limited noncontrast images. Pancreas: The pancreas is homogeneous in attenuation on these limited noncontrast images. Gall Bladder: Not visualized Adrenal glands: The adrenal glands are normal in size and attenuation on these limited noncontrast images. Kidneys: The kidneys are homogeneous in attenuation on these limited noncontrast images. There is no evidence for gross renal mass, calculus or hydronephrosis bilaterally. Bladder: There is no evidence for focal bladder wall thickening, calculus or diverticulum. : There is no evidence for pelvic mass or adenopathy. Vasculature: There is no evidence for focal aneurysmal dilatation of the abdominal aorta. Atherosclerotic calcification is present. Osseous structures: There is no acute osseous pathology. Degenerative changes are seen within the spine. IMPRESSION: 1. Gross distention of the stomach with liquid and food stuff. There is also moderate dilatation of the mid to distal small bowel loops with findings characteristic of partial small bowel obstruction. Etiology is not definitely seen but is suspicious for adhesions with previous partial small bowel resection noted. 2. There are 2 ventral abdominal wall hernias, one in the left and one on the right. The small bowel loops extend into the hernia sacs with no definite obstruction or incarceration. These are more upstream from the dilated loops of small bowel. 3. Evidence for mild to moderate fecal stasis within the colon. KUB CLINICAL HISTORY: Partial small bowel obstruction. COMPARISON STUDY: CT of the abdomen and pelvis March 28, 2022. FINDINGS: A loop of mildly dilated small bowel within the lower abdomen measures 4 cm in caliber. This has slightly decreased since prior CT. Of note, fluid- filled small bowel loops are difficult to assess by radiography. Right abdominal bowel anastomosis is noted. Sensitivity for detection of free air is diminished on this supine exam but none is identified. IMPRESSION: Mild decrease in small bowel dilatation. This favors a partial small bowel obstruction.
--- NOTE | 2022-03-29 14:27 | Hospitalist Progress Note ---
Date of Service March 29, 2022 Assessment & Plan (1) Partial obstruction of small intestine: (2) Hypomagnesemia: (3) Acute hypotension: (4) Bipolar depression: (5) COPD (chronic obstructive pulmonary disease): Plan: This is a 67-year-old female who has significant past medical history of COPD, HTN, hypothyroidism, bipolar disorder, history of ischemic small bowel obstruction status post small bowel resection with ileostomy and eventual reversal, chronic diarrhea, chronic nausea and vomiting who presents to ED at the referral of PCP secondary to hypotension. Partial obstruction of small intestine History of prior ischemic small bowel obstruction status post small bowel resection Admit to telemetry Consult general surgery Conservative management for now, n.p.o. and gentle IV fluid Patient currently is not vomiting therefore will not place NG tube Hold nonessential meds hold Imodium and lomtil given bowel obs Clinically much better without any abdominal distention and/or increasing pain Bowel movement Appreciate surgery input and recommendation Will start clears and may be advanced tomorrow as tolerated Hypomagnesemia Critical at 0.6 Received 2 g in ED Will add additional 2 g on floor Repeat mag at 0000 7/7 Likely multifactorial including malabsorption in setting of small bowel resection, PPI use, reported chronic diarrhea Will place on mag oxide 400 mg twice daily Repeat electrolytes remain unremarkable Hypocalcemia 1 g calcium gluconate ordered Acute hypotension JOSHUA Creatinine 1.31, baseline 0.7 Likely secondary to GI loss as well as medications including Lasix and lisinopril Will hold for now gentle NSS + KCL @ 75cc/hr x 2 L, re assess tomorrow need for additional fluid JOSHUA resolved Diastolic CHF, compensated Patient recently hospitalized in [place] for an acute decompensation of CHF This was her first episode and she was placed on a Lasix 40 mg daily Likely this is too much for her She has not yet established with cardiology, would recommend we refer her to our cardiology at discharge Daily weights, strict I's and O's Hold Lasix and lisinopril Blood pressure remains on the lower side and will hold Lasix and lisinopril for now HTN hold all oral antihypertensives COPD tobacco abuse on chantix no acute exac continue home inhalers Alcohol abuse Marijuana abuse encourage cessation awss protocol, prn ativan recommend daily thiamine and folic acid when tolerating po Bipolar continue effexor and risperidone DVT ppx: SQ Heparin Dispo: PCU given low mag FULL CODEPCP: Admission and Anticipated Discharge Date Admission Date: March 28, 2022 Subjective 03/29/2022 The patient was seen and examined in telemetry unit She has been feeling much better and denies any abdominal pain and/or distention She does have minimal nausea Moved her bowel Review of Systems Review of Systems: All systems reviewed and are unremarkable except as noted below Gastrointestinal: No abdominal distention. Bowel sounds present and bowel movement Physical Exam Physical Exam: Lying in bed comfortably Constitutional: average body habitus; not ill appearing Eyes: PERRL, conjunctivae normal, anicteric sclerae ENMT: external ear and nose normal, oropharynx normal Neck: trachea midline, no thyromegaly Respiratory: no respiratory distress Auscultation: lungs clear to auscultation bilaterally Cardiovascular: Rate/Rhythm: regular rate and regular rhythm; not tachycardic Heart Sounds: normal S1 and normal S2; no murmur Extremities: no edema Gastrointestinal (Abdomen): Inspection/Auscultation: normal bowel sounds; abdomen not distended Percussion/Palpation: abdomen soft; abdomen nontender Musculoskeletal: No acute arthritis in any joint Neurologic: Alert, awake and oriented x3. No focal sensory or no motor deficit appreciated Psychiatric: A+Ox3, euthymic affect Lymphatic: no cervical or axillary lymphadenopathy Results & Data Results & Data ([facility]) Vital Signs (Past 12 Hours) Vital Signs Temp Pulse Pulse Resp BP Pulse Ox 03/29/22 10:24 36.4 C L 80 19 98/55 L 94 03/29/22 10:09 97 H 03/29/22 07:12 36.8 C 82 20 96/49 L 93 03/29/22 03:53 36.7 C 81 16 107/61 91 Laboratory Results Short CBC 03/28/22 03/29/22 Range/Units 16:45 06:27 WBC 8.93 7.29 (4.8-10.8) K/ul Hgb 13.6 13.4 (12.0-16.0) g/dl Hct 38.9 38.4 (34.1-44.9) % Plt Count 245 237 (130-400) K/uL BMP 03/28/22 03/29/22 16:45 06:27 Sodium 136 139 Potassium 3.7 3.6 Chloride 100 104 Carbon Dioxide 29 28 BUN 24 H 20 Creatinine 1.31 H 0.76 D Glucose 81 86 Calcium 8.3 L 7.5 L Liver Function 03/28/22 03/29/22 Range/Units 16:45 06:27 Total Bilirubin 1.1 H 0.8 (0.2-1.0) mg/dl AST 14 11 L (13-39) U/L ALT 13 11 (7-52) U/L Alkaline Phosphatase 87 79 (34-104) U/L Albumin 3.5 3.0 L (3.4-5.0) gm/dl Medications Administered Current Inpatient Medications Acetaminophen (Acetaminophen 325 Mg Tab) 650 mg PO Q4H PRN PRN Reason: Pain or Fever Stop: 04/27/22 21:03 Al Hydrox/Mg Hydrox/Simethicone (Aluminum/Magnesium Susp 30 Ml Udc) 15 ml PO Q4H PRN PRN Reason: Dyspepsia Stop: 04/27/22 21:03 Albuterol (Albuterol Hfa 8 Gm Inhaler) 1 puffs INH QID PRN PRN Reason: sob Stop: 04/27/22 21:08 Famotidine (Famotidine 20 Mg Tab) 20 mg PO BID [facility] Stop: 04/27/22 21:59 Last Admin: 03/29/22 09:40 Dose: 20 mg Documented by: Fluticasone/Vilanterol (Fluticasone/Vilanterol 200/25mcg 14 Puffs/Inhaler) 1 puffs INH DAILY [facility] Stop: 04/28/22 08:59 Last Admin: 03/29/22 09:40 Dose: 1 puffs Documented by: Heparin Sodium (Porcine) (Heparin Sod 5,000 Unit/0.5 Ml Vial) 5,000 units SQ Q12 [facility] Stop: 04/28/22 08:59 Last Admin: 03/29/22 09:40 Dose: 5,000 units Documented by: Potassium Chloride/Sodium Chloride (Normal Saline W/20 Meq Kcl) 20 meq in 1,000 mls @ 75 mls/hr IV .[id number] [facility]; Protocol Stop: 03/30/22 00:09 Last Admin: 03/29/22 09:41 Dose: 75 mls/hr Documented by: Levothyroxine Sodium (Levothyroxine Sodium 150 Mcg Tablet) 150 mcg PO DAILYBB [facility] Stop: 04/28/22 06:29 Last Admin: 03/29/22 07:31 Dose: 150 mcg Documented by: Lorazepam (Lorazepam 1 Mg Tab) 1 mg PO ONE PRN; Protocol PRN Reason: EtoH Withdrawal AWSS 6-10 Magnesium Oxide (Magnesium Oxide 400 Mg Tab) 400 mg PO BID [facility] Stop: 04/27/22 21:03 Last Admin: 03/29/22 09:40 Dose: 400 mg Documented by: Ondansetron HCl (Ondansetron Inj 2 Mg/Ml 2 Ml Vial) 4 mg IV Q6H PRN PRN Reason: Nausea Stop: 04/27/22 21:03 Last Admin: 03/29/22 14:23 Dose: 4 mg Documented by: Polyethylene Glycol (Polyethylene (Miralax) 17 Gm Pack) 17 gm PO DAILY PRN PRN Reason: Constipation Stop: 04/27/22 21:03 Risperidone (Risperidone 2 Mg Tablet) 2 mg PO [facility] Stop: 04/27/22 21:03 Last Admin: 03/28/22 22:12 Dose: 2 mg Documented by: Venlafaxine HCl (Venlafaxine Hcl Xr 75 Mg Capxr) 75 mg PO [facility] Stop: 04/28/22 08:59 Last Admin: 03/29/22 09:40 Dose: 75 mg Documented by: Venlafaxine HCl (Venlafaxine Hcl Xr 150 Mg Capxr) 150 mg PO [facility] Stop: 04/27/22 21:03 Last Admin: 03/28/22 22:13 Dose: 150 mg Documented by:
[2022-03-29] MEDS: VENLAFAXINE HCL XR 150 MG CAPXR PO SCH (21:22)
[2022-03-29] MEDS: risperiDONE 2 MG TABLET PO SCH (21:22)
--- NOTE | 2022-03-29 22:55 | Electrocardiogram Report ---
Test Reason : Blood Pressure : / mmHG Vent. Rate : 084 BPM Atrial Rate : 084 BPM P-R Int : 132 ms QRS Dur : 082 ms QT Int : 350 ms P-R-T Axes : 071 012 055 degrees QTc Int : 413 ms Normal sinus rhythm Normal ECG When compared with ECG of 30-JUL-2018 18:25, No significant change was found Confirmed by Michael Bernard ([id number] on 03/29/2022 10:54:58 PM Referred By: Jacek Rosales Confirmed By:Michael Bernard
[2022-03-30] MEDS: LEVOTHYROXINE SODIUM 150 MCG TABLET PO SCH (06:33)
[2022-03-30] MEDS: FAMOTIDINE 20 MG TAB PO SCH ×2 (06:33→20:35)
[2022-03-30] MEDS: FLUTICASONE/VILANTEROL 200/25MCG 14 PUFFS/INHALER INH SCH (06:36)
[2022-03-30 06:37] LABS: Basophils # (auto) 0.02 K/uL (0-0.2); Basophils % (auto) 0.4 %; Eosinophils # (auto) 0.07 K/uL (0-0.50); Eosinophils % (auto) 1.5 %; Hematocrit (blood only) 32.5 % (34.1-44.9); Hemoglobin 11.4 g/dl (12.0-16.0); Immature Granulocytes # (auto) 0.01 K/uL (0.00-0.02); Immature Granulocytes % (auto) 0.2 %; Lymphocytes # (auto) 1.45 K/uL (1.2-3.4); Lymphocytes % (auto) 31.9 %; Mean Corpuscular Hemoglobin 32.2 pg (25.0-34.0); Mean Corpuscular Hgb Conc 35.1 g/dL (32.0-36.0); Mean Corpuscular Volume 91.8 fL (80.0-100.0); Monocytes % (auto) 13.2 %; Neutrophils % (auto) 52.8 %; Platelet Count 199 K/uL (130-400); RDW Coefficient of Variation 13.3 % (11.5-14.5); RDW Standard Deviation 44.7 fL (36.4-46.3); Red Blood Count 3.54 M/uL (3.93-5.22); White Blood Count 4.55 K/ul (4.8-10.8)
[2022-03-30 07:05] LABS: Albumin Globulin Ratio 1.1 (0.9-2); Albumin Level 2.4 gm/dl (3.4-5.0); BUN Creatinine Ratio 15.8 (10-20); Bilirubin,Total 0.7 mg/dl (0.2-1.0); Calcium 6.9 mg/dl (8.5-10.1); Creatinine Clr Calc Pharmacy 74.3 ml/min; Est GFR (African American) 112.7 ml/min; Est GFR (Non-African American) 97.3 ml/min; Globulin 2.1 gm/dl (2.5-4.0); Magnesium 1.6 mg/dl (1.7-2.4); Potassium 3.1 mmol/L (3.5-5.1); Total Protein 4.5 gm/dl (6.0-8.3)
[2022-03-30] MEDS: VENLAFAXINE HCL XR 75 MG CAPXR PO SCH (08:05)
[2022-03-30] MEDS: HEPARIN SOD 5,000 UNIT/0.5 ML VIAL SQ SCH ×2 (08:05→20:34)
[2022-03-30] MEDS: MAGNESIUM OXIDE 400 MG TAB PO SCH ×2 (08:05→20:35)
[2022-03-30] MEDS: MAGNESIUM SULFATE / D5W 1 GM/100 ML BAG IV SCH ×2 (09:36→11:19)
[2022-03-30] MEDS: POTASSIUM CHLORIDE / WTR 10 MEQ/100 ML PLCT IV SCH ×2 (09:36→10:30)
--- NOTE | 2022-03-30 13:25 | Hospitalist Progress Note ---
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 Partial obstruction of small intestine History of prior ischemic small bowel obstruction status post small bowel resection Admit to telemetry Consult general surgery Conservative management for now, n.p.o. and gentle IV fluid Patient currently is not vomiting therefore will not place NG tube Hold nonessential meds hold Imodium and lomtil given bowel obs Clinically much better without any abdominal distention and/or increasing pain Bowel movement Appreciate surgery input and recommendation Will start clears and may be advanced tomorrow as tolerated Clinically improved and denies any significant symptoms Diet advanced as tolerated We will get PT and OT evaluation and possible discharge tomorrow Hypomagnesemia Critical at 0.6 Received 2 g in ED Will add additional 2 g on floor Repeat mag at 0000 7/7 Likely multifactorial including malabsorption in setting of small bowel resection, PPI use, reported chronic diarrhea Will place on mag oxide 400 mg twice daily Low magnesium and potassium will be replaced Hypocalcemia 1 g calcium gluconate ordered Acute hypotension JOSHUA Creatinine 1.31, baseline 0.7 Likely secondary to GI loss as well as medications including Lasix and lisinopril Will hold for now gentle NSS + KCL @ 75cc/hr x 2 L, re assess tomorrow need for additional fluid JOSHUA resolved Diastolic CHF, compensated Patient recently hospitalized in [place] for an acute decompensation of CHF This was her first episode and she was placed on a Lasix 40 mg daily Likely this is too much for her She has not yet established with cardiology, would recommend we refer her to our cardiology at discharge Daily weights, strict I's and O's Hold Lasix and lisinopril Blood pressure remains on the lower side and will hold Lasix and lisinopril for now We will start Lasix and lisinopril on discharge tomorrow HTN hold all oral antihypertensives COPD tobacco abuse on chantix no acute exac continue home inhalers Alcohol abuse Marijuana abuse encourage cessation awss protocol, prn ativan recommend daily thiamine and folic acid when tolerating po Start thiamine and folic acid Bipolar continue effexor and risperidone DVT ppx: SQ Heparin Dispo: PCU given low mag FULL CODEPCP: Admission and Anticipated Discharge Date Admission Date: March 28, 2022 Subjective 03/29/2022 The patient was seen and examined in telemetry unit She has been feeling much better and denies any abdominal pain and/or distention She does have minimal nausea Moved her bowel 03/30/2022 The patient was seen and examined in telemetry unit She has been feeling much better and denies any abdominal pain, nausea and or vomiting Bowel movement Review of Systems Review of Systems: All systems reviewed and are unremarkable except as noted below Gastrointestinal: No abdominal distention. Bowel sounds present and bowel movement Physical Exam Physical Exam: Lying in bed comfortably Constitutional: average body habitus; not ill appearing Eyes: PERRL, conjunctivae normal, anicteric sclerae ENMT: external ear and nose normal, oropharynx normal Neck: trachea midline, no thyromegaly Respiratory: no respiratory distress Auscultation: lungs clear to auscultation bilaterally Cardiovascular: Rate/Rhythm: regular rate and regular rhythm; not tachycardic Heart Sounds: normal S1 and normal S2; no murmur Extremities: no edema Gastrointestinal (Abdomen): Inspection/Auscultation: normal bowel sounds; abdomen not distended Percussion/Palpation: abdomen soft; abdomen nontender Musculoskeletal: No acute arthritis in any joint Neurologic: normal touch/pain/proprioception and moves all extremities Psychiatric: A+Ox3, euthymic affect Lymphatic: no cervical or axillary lymphadenopathy Results & Data Results & Data ([facility]) Vital Signs (Past 12 Hours) Vital Signs Temp Pulse Pulse Resp BP Pulse Ox 03/30/22 11:39 37.1 C 75 18 128/65 94 03/30/22 07:39 81 03/30/22 06:48 36.7 C 77 17 99/56 L 92 03/30/22 03:51 36.8 C 70 18 123/54 L 95 Laboratory Results Short CBC 03/30/22 Range/Units 05:56 WBC 4.55 L (4.8-10.8) K/ul Hgb 11.4 L (12.0-16.0) g/dl Hct 32.5 L (34.1-44.9) % Plt Count 199 (130-400) K/uL BMP 03/30/22 05:56 Sodium 141 Potassium 3.1 L Chloride 110 H Carbon Dioxide 29 BUN 9 Creatinine 0.57 L Glucose 84 Calcium 6.9 L Liver Function 03/30/22 Range/Units 05:56 Total Bilirubin 0.7 (0.2-1.0) mg/dl AST 8 L (13-39) U/L ALT 8 (7-52) U/L Alkaline Phosphatase 60 (34-104) U/L Albumin 2.4 L (3.4-5.0) gm/dl Medications Administered Current Inpatient Medications Acetaminophen (Acetaminophen 325 Mg Tab) 650 mg PO Q4H PRN PRN Reason: Pain or Fever Stop: 04/27/22 21:03 Al Hydrox/Mg Hydrox/Simethicone (Aluminum/Magnesium Susp 30 Ml Udc) 15 ml PO Q4H PRN PRN Reason: Dyspepsia Stop: 04/27/22 21:03 Albuterol (Albuterol Hfa 8 Gm Inhaler) 1 puffs INH QID PRN PRN Reason: sob Stop: 04/27/22 21:08 Famotidine (Famotidine 20 Mg Tab) 20 mg PO BID [facility] Stop: 04/27/22 21:59 Last Admin: 03/30/22 06:33 Dose: 20 mg Documented by: Fluticasone/Vilanterol (Fluticasone/Vilanterol 200/25mcg 14 Puffs/Inhaler) 1 puffs INH DAILY [facility] Stop: 04/28/22 08:59 Last Admin: 03/30/22 06:36 Dose: 1 puffs Documented by: Heparin Sodium (Porcine) (Heparin Sod 5,000 Unit/0.5 Ml Vial) 5,000 units SQ Q12 [facility] Stop: 04/28/22 08:59 Last Admin: 03/30/22 08:05 Dose: 5,000 units Documented by: Levothyroxine Sodium (Levothyroxine Sodium 150 Mcg Tablet) 150 mcg PO DAILYBB [facility] Stop: 04/28/22 06:29 Last Admin: 03/30/22 06:33 Dose: 150 mcg Documented by: Lorazepam (Lorazepam 1 Mg Tab) 1 mg PO ONE PRN; Protocol PRN Reason: EtoH Withdrawal AWSS 6-10 Magnesium Oxide (Magnesium Oxide 400 Mg Tab) 400 mg PO BID [facility] Stop: 04/27/22 21:03 Last Admin: 03/30/22 08:05 Dose: 400 mg Documented by: Ondansetron HCl (Ondansetron Inj 2 Mg/Ml 2 Ml Vial) 4 mg IV Q6H PRN PRN Reason: Nausea Stop: 04/27/22 21:03 Last Admin: 03/29/22 14:23 Dose: 4 mg Documented by: Polyethylene Glycol (Polyethylene (Miralax) 17 Gm Pack) 17 gm PO DAILY PRN PRN Reason: Constipation Stop: 04/27/22 21:03 Risperidone (Risperidone 2 Mg Tablet) 2 mg PO [facility] Stop: 04/27/22 21:03 Last Admin: 03/29/22 21:22 Dose: 2 mg Documented by: Venlafaxine HCl (Venlafaxine Hcl Xr 75 Mg Capxr) 75 mg PO QAM [facility] Stop: 04/28/22 08:59 Last Admin: 03/30/22 08:05 Dose: 75 mg Documented by: Venlafaxine HCl (Venlafaxine Hcl Xr 150 Mg Capxr) 150 mg PO [facility] Stop: 04/27/22 21:03 Last Admin: 03/29/22 21:22 Dose: 150 mg Documented by:
--- NOTE | 2022-03-30 13:57 | Surgery Progress Note ---
Date of Service March 30, 2022 Assessment & Plan (1) Partial obstruction of small intestine: (2) Vomiting: (3) Nausea: Plan: 67 year-old female with history of small bowel resection for ischemic bowel in 2018 with ileostomy and subsequent reversal presented to ED from PCP office for hypotension as well as 2-3 day history of increasing nausea and vomiting. CT scan of abd and pelvis showing partial SBO with distended stomach. KUB 03/29/2022 showing improved small bowel dilatation favoring partial obstruction. No leukocytosis. Abdomen is soft, nondistended, nontender. 03/30/2022 -return of bowel function, no abd pain, chronic nausea at baseline no vomiting, tolerating diet Plan: Continue reg diet continue medical management our services signing off Dr. Faulkner was present during my examination and agrees with above. Admission and Anticipated Discharge Date Admission Date: March 28, 2022 Subjective feeling good no abdominal pain, still having nausea but no vomiting tolerated reg diet so far two bowel movements today Physical Exam Constitutional: WD/WN, vitals as above no acute distress Gastrointestinal (Abdomen): Inspection/Auscultation: abdomen normal to inspection and + abdominal surgical scar (midline laparotomy scar and right and left transverse scars); abdomen not distended Percussion/Palpation: abdomen soft; abdomen nontender, no guarding and abdomen not rigid Skin: no rashes, warm and dry Psychiatric: Orientation: alert and oriented x 3 Results & Data ([facility]) Vital Signs (Past 12 Hours) Vital Signs Temp Pulse Pulse Resp BP Pulse Ox 03/30/22 11:39 37.1 C 75 18 128/65 94 03/30/22 07:39 81 03/30/22 06:48 36.7 C 77 17 99/56 L 92 03/30/22 03:51 36.8 C 70 18 123/54 L 95 Laboratory Results 03/30/22 03/30/22 03/29/22 Range/Units 05:56 05:56 06:27 WBC 4.55 L (4.8-10.8) K/ul RBC 3.54 L (3.93-5.22) M/uL Hgb 11.4 L (12.0-16.0) g/dl Hct 32.5 L (34.1-44.9) % MCV 91.8 (80.0-100.0) fL MCH 32.2 (25.0-34.0) pg MCHC 35.1 (32.0-36.0) g/dL RDW Std Deviation 44.7 (36.4-46.3) fL RDW Coeff of Yosef 13.3 (11.5-14.5) % Plt Count 199 (130-400) K/uL MPV 10.0 (9.4-12.3) fL Immature Gran % (Auto) 0.2 % Neut % (Auto) 52.8 % Lymph % (Auto) 31.9 % Rolette % (Auto) 13.2 % Eos % (Auto) 1.5 % Baso % (Auto) 0.4 % Neut # (Auto) 2.40 (1.4-6.5) K/uL Lymph # (Auto) 1.45 (1.2-3.4) K/uL Rolette # (Auto) 0.60 (0.24-0.82) K/uL Eos # (Auto) 0.07 (0-0.50) K/uL Baso # (Auto) 0.02 (0-0.2) K/uL Immature Gran # (Auto) 0.01 (0.00-0.02) K/uL Sodium 141 (136-145) mmol/L Potassium 3.1 L (3.5-5.1) mmol/L Chloride 110 H (98-107) mmol/L Carbon Dioxide 29 (21-32) mmol/L Anion Gap 2 L (3-11) BUN 9 (6-23) mg/dl Creatinine 0.57 L (0.6-1.2) mg/dl Est Cr Clr Drug Dosing 74.3 ml/min Est GFR ( Amer) 112.7 ml/min Est GFR (Non-Af Amer) 97.3 ml/min BUN/Creatinine Ratio 15.8 (10-20) Glucose 84 (70-99(Fasting)) mg/dl Calcium 6.9 L (8.5-10.1) mg/dl Magnesium 1.6 L (1.7-2.4) mg/dl Total Bilirubin 0.7 (0.2-1.0) mg/dl AST 8 L (13-39) U/L ALT 8 (7-52) U/L Alkaline Phosphatase 60 (34-104) U/L Total Protein 4.5 L D (6.0-8.3) gm/dl Albumin 2.4 L (3.4-5.0) gm/dl Globulin 2.1 L (2.5-4.0) gm/dl Albumin/Globulin Ratio 1.1 (0.9-2) Hepatitis C Ab (EIA) NON-REACTIVE (NON-REACTIVE) Hep C Ab Signal/Cutoff 0.04 (<1.00)
[2022-03-30] MEDS: FOLIC ACID 1 MG TAB PO SCH (14:12)
[2022-03-30] MEDS: THIAMINE HCL 100 MG TAB PO SCH (14:12)
[2022-03-30] MEDS: risperiDONE 2 MG TABLET PO SCH (20:36)
[2022-03-30] MEDS: VENLAFAXINE HCL XR 150 MG CAPXR PO SCH (20:36)
[2022-03-31] MEDS: LEVOTHYROXINE SODIUM 150 MCG TABLET PO SCH (05:33)
[2022-03-31 06:50] LABS: Hematocrit (blood only) 34.4 % (34.1-44.9); Hemoglobin 12.1 g/dl (12.0-16.0); Mean Corpuscular Hemoglobin 32.9 pg (25.0-34.0); Mean Corpuscular Hgb Conc 35.2 g/dL (32.0-36.0); Mean Corpuscular Volume 93.5 fL (80.0-100.0); Mean Platelet Volume 9.9 fL (9.4-12.3); Platelet Count 203 K/uL (130-400); RDW Coefficient of Variation 13.2 % (11.5-14.5); Red Blood Count 3.68 M/uL (3.93-5.22); White Blood Count 4.61 K/ul (4.8-10.8)
[2022-03-31 07:15] LABS: BUN Creatinine Ratio 10.2 (10-20); Calcium 7.8 mg/dl (8.5-10.1); Creatinine Clr Calc Pharmacy 71.7 ml/min; Est GFR (African American) 111.5 ml/min; Est GFR (Non-African American) 96.2 ml/min; Magnesium 2.2 mg/dl (1.7-2.4); Phosphorus 1.8 mg/dl (2.5-4.9); Potassium 3.4 mmol/L (3.5-5.1)
[2022-03-31] MEDS: MAGNESIUM OXIDE 400 MG TAB PO SCH (08:11)
[2022-03-31] MEDS: HEPARIN SOD 5,000 UNIT/0.5 ML VIAL SQ SCH (08:11)
[2022-03-31] MEDS: VENLAFAXINE HCL XR 75 MG CAPXR PO SCH (08:11)
[2022-03-31] MEDS: FAMOTIDINE 20 MG TAB PO SCH (08:11)
[2022-03-31] MEDS: FOLIC ACID 1 MG TAB PO SCH (08:11)
[2022-03-31] MEDS: THIAMINE HCL 100 MG TAB PO SCH (08:11)
[2022-03-31] MEDS: FLUTICASONE/VILANTEROL 200/25MCG 14 PUFFS/INHALER INH SCH (08:11)
[2022-03-31] MEDS ORDERED: POTASSIUM PHOS 3 MMOL/1 ML INFUSION IV STA (08:21)
[2022-03-31] MEDS ORDERED: POTASSIUM PHOSPHATE 30 MMOL in SODIUM CHLORIDE 0.9% 500 ML IV ONE (08:45)
[2022-03-31] MEDS ORDERED: DIPHENOXYLATE/ATROPINE 2.5/0.025MG TAB PO SCH (12:00)
--- NOTE | 2022-03-31 12:57 | Hospitalist Progress Note ---
Date of Service March 31, 2022 Assessment & Plan (1) Partial obstruction of small intestine: (2) Hypomagnesemia: (3) Acute hypotension: (4) Bipolar depression: (5) COPD (chronic obstructive pulmonary disease): Plan: This is a 67-year-old female who has significant past medical history of COPD, HTN, hypothyroidism, bipolar disorder, history of ischemic small bowel obstruction status post small bowel resection with ileostomy and eventual reversal, chronic diarrhea, chronic nausea and vomiting who presents to ED at the referral of PCP secondary to hypotension. Partial obstruction of small intestine History of prior ischemic small bowel obstruction status post small bowel resection Admit to telemetry Consult general surgery Conservative management for now, n.p.o. and gentle IV fluid Patient currently is not vomiting therefore will not place NG tube Hold nonessential meds hold Imodium and lomtil given bowel obs Clinically much better without any abdominal distention and/or increasing pain Bowel movement Appreciate surgery input and recommendation Will start clears and may be advanced tomorrow as tolerated Clinically improved and denies any significant symptoms Diet advanced as tolerated We will get PT and OT evaluation and possible discharge tomorrow Back to her baseline and he started to have regular bowel movement though she has history of chronic diarrhea Denies any abdominal pain, distention, any nausea and/or vomiting Hypomagnesemia Critical at 0.6 Received 2 g in ED Will add additional 2 g on floor Repeat mag at 0000 7/7 Likely multifactorial including malabsorption in setting of small bowel resection, PPI use, reported chronic diarrhea Will place on mag oxide 400 mg twice daily Low magnesium and potassium will be replaced We will check phosphate and magnesium this afternoon Started on her usual medications Should be discharged home this afternoon Hypocalcemia 1 g calcium gluconate ordered Acute hypotension JOSHUA Creatinine 1.31, baseline 0.7 Likely secondary to GI loss as well as medications including Lasix and lisinopril Will hold for now gentle NSS + KCL @ 75cc/hr x 2 L, re assess tomorrow need for additional fluid JOSHUA resolved Diastolic CHF, compensated Patient recently hospitalized in [place] for an acute decompensation of CHF This was her first episode and she was placed on a Lasix 40 mg daily Likely this is too much for her She has not yet established with cardiology, would recommend we refer her to our cardiology at discharge Daily weights, strict I's and O's Hold Lasix and lisinopril Blood pressure remains on the lower side and will hold Lasix and lisinopril for now We will start Lasix and lisinopril on discharge today HTN hold all oral antihypertensives COPD tobacco abuse on chantix no acute exac continue home inhalers Alcohol abuse Marijuana abuse encourage cessation awss protocol, prn ativan recommend daily thiamine and folic acid when tolerating po Start thiamine and folic acid Bipolar continue effexor and risperidone DVT ppx: SQ Heparin Dispo: PCU given low mag FULL CODEPCP: Admission and Anticipated Discharge Date Admission Date: March 28, 2022 Subjective 03/29/2022 The patient was seen and examined in telemetry unit She has been feeling much better and denies any abdominal pain and/or distention She does have minimal nausea Moved her bowel 03/30/2022 The patient was seen and examined in telemetry unit She has been feeling much better and denies any abdominal pain, nausea and or vomiting Bowel movement 03/31/2022 The patient was seen and examined in telemetry unit She has had 2 bowel movements since this morning History of chronic diarrhea and has been on regular antidiarrheals at home We will start her usual home medication Has been feeling much better and tolerating regular diet and wants to go home Review of Systems Review of Systems: All systems reviewed and are unremarkable except as noted below Gastrointestinal: Denies any abdominal pain, distention, nausea and/or vomiting Physical Exam Physical Exam: Lying in bed comfortably Constitutional: average body habitus; not ill appearing Eyes: PERRL, conjunctivae normal, anicteric sclerae ENMT: external ear and nose normal, oropharynx normal Neck: trachea midline, no thyromegaly Respiratory: no respiratory distress Auscultation: lungs clear to auscultation bilaterally Cardiovascular: Rate/Rhythm: regular rate and regular rhythm; not tachycardic Heart Sounds: normal S1 and normal S2; no murmur Extremities: no edema Gastrointestinal (Abdomen): Inspection/Auscultation: normal bowel sounds; abdomen not distended Percussion/Palpation: abdomen soft; abdomen nontender Musculoskeletal: No acute arthritis involving any joint Neurologic: normal touch/pain/proprioception and moves all extremities Psychiatric: A+Ox3, euthymic affect Lymphatic: no cervical or axillary lymphadenopathy Results & Data Results & Data ([facility]) Vital Signs (Past 12 Hours) Vital Signs Temp Pulse Pulse Resp BP Pulse Ox 03/31/22 11:51 36.6 C 72 20 130/58 L 97 03/31/22 07:41 37.1 C 76 20 131/69 95 03/31/22 07:18 75 03/31/22 03:00 36.8 C 71 18 110/58 L 97 Laboratory Results Short CBC 03/31/22 Range/Units 06:14 WBC 4.61 L (4.8-10.8) K/ul Hgb 12.1 (12.0-16.0) g/dl Hct 34.4 (34.1-44.9) % Plt Count 203 (130-400) K/uL BMP 03/31/22 06:14 Sodium 140 Potassium 3.4 L Chloride 109 H Carbon Dioxide 29 BUN 6 Creatinine 0.59 L Glucose 87 Calcium 7.8 L Medications Administered Current Inpatient Medications Acetaminophen (Acetaminophen 325 Mg Tab) 650 mg PO Q4H PRN PRN Reason: Pain or Fever Stop: 04/27/22 21:03 Al Hydrox/Mg Hydrox/Simethicone (Aluminum/Magnesium Susp 30 Ml Udc) 15 ml PO Q4H PRN PRN Reason: Dyspepsia Stop: 04/27/22 21:03 Albuterol (Albuterol Hfa 8 Gm Inhaler) 1 puffs INH QID PRN PRN Reason: sob Stop: 04/27/22 21:08 Diphenoxylate HCl/Atropine (Diphenoxylate/Atropine 2.5/0.025mg Tab) tab PO Q6H [facility] Stop: 04/30/22 11:59 Famotidine (Famotidine 20 Mg Tab) 20 mg PO BID [facility] Stop: 04/27/22 21:59 Last Admin: 03/31/22 08:11 Dose: 20 mg Documented by: Fluticasone/Vilanterol (Fluticasone/Vilanterol 200/25mcg 14 Puffs/Inhaler) 1 puffs INH DAILY [facility] Stop: 04/28/22 08:59 Last Admin: 03/31/22 08:11 Dose: 1 puffs Documented by: Folic Acid (Folic Acid 1 Mg Tab) 1 mg PO QAM [facility] Stop: 04/29/22 13:29 Last Admin: 03/31/22 08:11 Dose: 1 mg Documented by: Heparin Sodium (Porcine) (Heparin Sod 5,000 Unit/0.5 Ml Vial) 5,000 units SQ Q12 [facility] Stop: 04/28/22 08:59 Last Admin: 03/31/22 08:11 Dose: 5,000 units Documented by: Potassium Phosphate 30 mmol/ (Sodium Chloride) 510 mls @ 88 mls/hr IV ONE ONE Stop: 03/31/22 14:32 Last Admin: 03/31/22 08:54 Dose: 88 mls/hr Documented by: Levothyroxine Sodium (Levothyroxine Sodium 150 Mcg Tablet) 150 mcg PO DAILYBB [facility] Stop: 04/28/22 06:29 Last Admin: 03/31/22 05:33 Dose: 150 mcg Documented by: Loperamide HCl (Loperamide Hcl 2 Mg Cap) 2 mg PO QID [facility] Stop: 04/30/22 12:59 Last Admin: 03/31/22 12:43 Dose: 2 mg Documented by: Lorazepam (Lorazepam 1 Mg Tab) 1 mg PO ONE PRN; Protocol PRN Reason: EtoH Withdrawal AWSS 6-10 Magnesium Oxide (Magnesium Oxide 400 Mg Tab) 400 mg PO BID [facility] Stop: 04/27/22 21:03 Last Admin: 03/31/22 08:11 Dose: 400 mg Documented by: Ondansetron HCl (Ondansetron Inj 2 Mg/Ml 2 Ml Vial) 4 mg IV Q6H PRN PRN Reason: Nausea Stop: 04/27/22 21:03 Last Admin: 03/29/22 14:23 Dose: 4 mg Documented by: Polyethylene Glycol (Polyethylene (Miralax) 17 Gm Pack) 17 gm PO DAILY PRN PRN Reason: Constipation Stop: 04/27/22 21:03 Risperidone (Risperidone 2 Mg Tablet) 2 mg PO HS [facility] Stop: 04/27/22 21:03 Last Admin: 03/30/22 20:36 Dose: 2 mg Documented by: Thiamine HCl (Thiamine Hcl 100 Mg Tab) 100 mg PO QAM [facility] Stop: 04/29/22 13:29 Last Admin: 03/31/22 08:11 Dose: 100 mg Documented by: Venlafaxine HCl (Venlafaxine Hcl Xr 75 Mg Capxr) 75 mg PO QAM [facility] Stop: 04/28/22 08:59 Last Admin: 03/31/22 08:11 Dose: 75 mg Documented by: Venlafaxine HCl (Venlafaxine Hcl Xr 150 Mg Capxr) 150 mg PO HS [facility] Stop: 04/27/22 21:03 Last Admin: 03/30/22 20:36 Dose: 150 mg Documented by:
[2022-03-31] MEDS ORDERED: LOPERAMIDE HCL 2 MG CAP PO SCH (13:00)
[2022-03-31 14:36] LABS: BUN Creatinine Ratio 10.4 (10-20); Calcium 8.1 mg/dl (8.5-10.1); Creatinine Clr Calc Pharmacy 63.2 ml/min; Est GFR (African American) 106.9 ml/min; Est GFR (Non-African American) 92.2 ml/min; Magnesium 2.1 mg/dl (1.7-2.4); Phosphorus 3.2 mg/dl (2.5-4.9); Potassium 3.6 mmol/L (3.5-5.1)
--- NOTE | 2022-03-31 17:47 | Discharge Summary ---
Date of Service March 31, 2022 Admission HPI Per Admitting Provider This is a 67-year-old female who has significant past medical history of COPD, HTN, hypothyroidism, bipolar disorder, history of ischemic small bowel obstruction status post small bowel resection with ileostomy and eventual reversal, chronic diarrhea, chronic nausea and vomiting who presents to ED at the referral of PCP secondary to hypotension. Of significance patient was hospitalized at the end of January 2022 in [facility] and was diagnosed with acute diastolic CHF. She was diuresed and placed on oral Lasix at discharge. She also had hypokalemia and was placed on potassium supplement. She had hospital follow-up with PCP. Echocardiogram during hospitalization revealed EF 70 to 75% with grade 1 diastolic dysfunction. Today she was seen by PCP just for repeat follow-up and blood work secondary to being on diuretic. She states her weight has been up from 1 16-1 19. She has been compliant with her medications. In clinic today she was found to be significantly hypotensive and orthostatic with BP 60 over 40s. She was referred to ED. Over the last week she complains of feeling unwell. She does complain of general lightheaded and dizziness but no nico syncope. She denies any fever, chills, sweats, chest pain, cough, hemoptysis, palpitations, abdominal pain, melena, hematochezia, dysuria, increased urgency or frequency with urination. She does have chronic shortness of breath secondary to COPD. She continues to smoke but is taking Chantix and trying to reduce her tobacco use. She does drink 3-4 1 ounce shots of tequila daily. Her last drink was yesterday. She also smokes marijuana daily last use was this morning. She does complain of chronic nausea and vomiting. She typically vomits once a day, but over the past week it has been approximately 3-4 times a day. She also has chronic loose stool for which she takes Lomotil and Imodium for. In ED patient was significantly hypotensive with blood pressures in the 70s. She received a 500 mL bolus with improvement of blood pressures. Her magnesium was also found to be critical at 0.6. She was started on magnesium supplementation. CT abdomen pelvis revealed distended fluid and debris-filled stomach and partial small bowel obstruction likely related to adhesions. Admission Exam Per Admitting Provider Physical Exam: Constitutional: Chronically ill-appearing female,vitals as above, NAD, sitting up in bed, pleasant, conversing easily Head: Normocephalic, Atraumatic Eyes: PERRL, conjunctivae normal, anicteric sclerae ENMT: external ear and nose normal, oropharynx normal Neck: trachea midline, no thyromegaly normal visual inspection Respiratory: normal respiratory effort, lungs clear to auscultation, no wheeze, rales, rhonchi. Normal insp/exp effort, no accessory muscle use Cardiovascular: RRR, no murmur, no edema Vessels: no JVD or carotid bruit Chest: normal inspection of chest Abdomen: normal bowel sounds, soft, mildly tender to palpation epigastrium, no rebound, no guarding, no rigidity, no hepatosplenomegaly Musculoskeletal: no cyanosis or clubbing, extremities motor strength 5/5 Skin: no rashes, warm and dry normal turgor Neurologic: PERRL, EOMI, accommodation nl, no face palsy, no dysarthria CN's II-XI intact bilaterally and moves all extremities Psychiatric: A+Ox3, euthymic affect Lymphatic: no cervical or axillary lymphadenopathy : deferred Principal Diagnosis Partial SBO, electrolyte imbalance, stable COPD, bipolar depression, chronic diarrhea Discharge Exam Lying in bed comfortably Constitutional average body habitus; not ill appearing Eyes PERRL, conjunctivae normal, anicteric sclerae ENMT external ear and nose normal, oropharynx normal Neck trachea midline, no thyromegaly Respiratory no respiratory distress Auscultation: lungs clear to auscultation bilaterally Cardiovascular Rate/Rhythm: regular rate and regular rhythm; not tachycardic Heart Sounds: normal S1 and normal S2; no murmur Extremities: no edema Gastrointestinal (Abdomen) Inspection/Auscultation: normal bowel sounds; abdomen not distended Percussion/Palpation: abdomen soft; abdomen nontender Neurologic normal touch/pain/proprioception and moves all extremities Psychiatric A+Ox3, euthymic affect Lymphatic no cervical or axillary lymphadenopathy Discharge Data Allergies Allergy/AdvReac Type Severity Reaction Status Date / Time No Known Allergies Allergy Verified 10/14/18 13:02 Consultations 03/28/22 17:53 ED Decision to Admit Stat 03/28/22 18:12 Consult General Surgery Routine Ordered Studies 03/28/22 16:23 US venous doppler LE RT Stat 03/28/22 16:45 CT abd pelvis wo con Stat Hospital Course (1) Partial obstruction of small intestine: (2) Hypomagnesemia: (3) Acute hypotension: (4) Bipolar depression: (5) COPD (chronic obstructive pulmonary disease): This is a 67-year-old female who has significant past medical history of COPD, HTN, hypothyroidism, bipolar disorder, history of ischemic small bowel obstruction status post small bowel resection with ileostomy and eventual reversal, chronic diarrhea, chronic nausea and vomiting who presents to ED at the referral of PCP secondary to hypotension. Partial obstruction of small intestine History of prior ischemic small bowel obstruction status post small bowel resection Admit to telemetry Consult general surgery Conservative management for now, n.p.o. and gentle IV fluid Patient currently is not vomiting therefore will not place NG tube Hold nonessential meds hold Imodium and lomtil given bowel obs Clinically much better without any abdominal distention and/or increasing pain Bowel movement Appreciate surgery input and recommendation Will start clears and may be advanced tomorrow as tolerated Clinically improved and denies any significant symptoms Diet advanced as tolerated We will get PT and OT evaluation and possible discharge tomorrow Back to her baseline and he started to have regular bowel movement though she has history of chronic diarrhea Denies any abdominal pain, distention, any nausea and/or vomiting Hypomagnesemia Critical at 0.6 Received 2 g in ED Will add additional 2 g on floor Repeat mag at 0000 7/7 Likely multifactorial including malabsorption in setting of small bowel resection, PPI use, reported chronic diarrhea Will place on mag oxide 400 mg twice daily Low magnesium and potassium will be replaced We will check phosphate and magnesium this afternoon Started on her usual medications Should be discharged home this afternoon Hypocalcemia 1 g calcium gluconate ordered Acute hypotension JOSHUA Creatinine 1.31, baseline 0.7 Likely secondary to GI loss as well as medications including Lasix and lisinopril Will hold for now gentle NSS + KCL @ 75cc/hr x 2 L, re assess tomorrow need for additional fluid JOSHUA resolved Diastolic CHF, compensated Patient recently hospitalized in [place] for an acute decompensation of CHF This was her first episode and she was placed on a Lasix 40 mg daily Likely this is too much for her She has not yet established with cardiology, would recommend we refer her to our cardiology at discharge Daily weights, strict I's and O's Hold Lasix and lisinopril Blood pressure remains on the lower side and will hold Lasix and lisinopril for now We will start Lasix and lisinopril on discharge today HTN hold all oral antihypertensives COPD tobacco abuse on chantix no acute exac continue home inhalers Alcohol abuse Marijuana abuse encourage cessation awss protocol, prn ativan recommend daily thiamine and folic acid when tolerating po Start thiamine and folic acid Bipolar continue effexor and risperidone DVT ppx: SQ Heparin Dispo: PCU given low mag FULL CODEPCP: Total Time Total Time Spent Total Time Spent (In Minutes): 35 minutes Discharge Plan Discharge Items Patient Disposition: Home - Self-Care Reason For Visit: hypomagnesemia, partial SBO Discharge Diagnosis: Partial SBO, electrolyte imbalance, stable COPD, bipolar depression, chronic diarrhea Condition on Discharge: Fair Activity: Resume your previous activity Non-emergency contact: Primary Care Provider Call non-emergency contact if: you have any medication questions and your symptoms worsen Follow-up/Referrals: Jacek Rosales MD [Primary Care Provider] - (Date & Time 04/06/2022 12:20 PM Provider Sofia Escobar PA-C Department [facility] ) Diet: Regular Addtl Attending Provider Instructions: Please take precautions to avoid fall Folic acid and thiamine have been added to your medications Use electrolyte solution if your diarrhea is acting up Please keep appointments with your healthcare providers Advised to quit drinking of alcohol Pending Studies at Discharge: No Stand-Alone Forms: My [facility], Smoking Cessation Medications and DC Order Prescriptions: New thiamine HCl (vitamin B1) 100 mg Tablet 100 mg PO QAM 30 Days Qty: 30 RF: 0 folic acid 1 mg Tablet 1 mg PO QAM 30 Days Qty: 30 RF: 0 Continued sucralfate [Carafate] 1 gram Tablet 1 g PO ACHS RF: 0 gabapentin 600 mg Tablet 600 mg PO HS RF: 0 levothyroxine 150 mcg Tablet 150 mcg PO DAILY RF: 0 risperidone 2 mg Tablet 2 mg PO HS RF: 0 venlafaxine [Effexor XR] 150 mg Capsule,Extended Release 24hr 150 mg PO HS RF: 0 venlafaxine [Effexor XR] 75 mg Capsule,Extended Release 24hr 75 mg PO QAM RF: 0 furosemide 40 mg tablet 40 mg PO DAILY RF: 0 loperamide 2 mg Tablet 2 mg PO QID RF: 0 cyanocobalamin (vitamin B-12) 1,000 mcg Tablet 1,000 mcg PO DAILY RF: 0 amlodipine 2.5 mg tablet 2.5 mg PO DAILY RF: 0 famotidine 20 mg Tablet 20 mg PO BID RF: 0 pantoprazole 40 mg tablet,delayed release (DR/EC) 80 mg PO DAILY RF: 0 albuterol sulfate 90 mcg/actuation Hfa Aerosol Inhaler 1 inh INHALATION QID PRN (Reason: sob) RF: 0 lisinopril 40 mg tablet 40 mg PO DAILY RF: 0 varenicline 1 mg tablet 1 mg PO BID RF: 0 trospium 60 mg capsule,extended release 24hr 60 mg PO DAILY RF: 0 fluticasone furoate-vilanterol [Breo Ellipta] 200-25 mcg/dose blister with device 1 inh INHALATION DAILY RF: 0 diphenoxylate-atropine [Lomotil] 2.5-0.025 mg tablet 2.5 mg PO Q6H RF: 0 Discharge Orders: Discharge Order (Routine); Ordered 03/31/22 Ordered By: Eddie Hardin Admission Data Admit Date/Time: 03/28/22 18:12 Attending Provider: Eddie Hardin Admit Provider: Eddie Hardin Primary Care Provider: Jacek Rosales Other Providers: Angélica Faulkner ; Ryan Joseph Other Interventions: Discharge Summary Assessment (RN) Last Done: 03/31/22 16:19
== END 2022-03-31 16:53 | disposition home or self-care (01) | DRG 389 ==
LOC: ED 16:11 → 2E 18:12

== ENCOUNTER 2022-04-04 16:08 | Inpatient (IN) ==
[2022-04-04 16:43] LABS: Appearance Urine Clear (Clear); Bilirubin Urine Negative (Negative); Blood Urine Negative (Negative); Color Urine Yellow; Glucose Urine UA Negative (Negative); Ketones Urine Trace (Negative); Leukocyte Esterase Urine Negative (Negative); Nitrite Urine Negative (Negative); Protein Urine Negative (Negative); Specific Gravity Urine 1.014 (1.000-1.030); Urobilinogen Urine Negative (Negative)
--- NOTE | 2022-04-04 16:47 | XRay Report ---
XR chest 1V portable HISTORY: hypotension COMPARISON: Chest 03/28/2022. FINDINGS: Slightly rotated study. No pneumothorax. No pleural fusions. The lungs are clear. The heart is normal in size. There are calcifications within the aortic knob, unchanged. IMPRESSION: No acute process. ACT 112: Negative or not required by law. Electronically signed by: Willy Almeida M.D. 04/04/2022 4:45 PM
[2022-04-04] MEDS ORDERED: SODIUM CHLORIDE 0.9% 1000ML 1,000 ML IV ONE ×2 (17:58→20:51)
--- NOTE | 2022-04-04 18:02 | Emergency Department Note ---
Impression & Plan Acute hypotension, Weakness, Abdominal pain ED Provider Note NAME: SHERMAN MARIE AGE: 67 SEX: F : 1955 ARRIVES VIA: Walk-In INFORMANT: Patient ED PROVIDER(S): Aleks Grajeda DO CHIEF COMPLAINT: Weakness, hypertension HPI: Patient is a 67-year-old female with a past medical history of COPD, small bowel obstruction, hypertension, bipolar, and asthma that presents to the ER for weakness and lightheadedness. She notes yesterday she had some abdominal bl oating and fullness. This that continued into this morning. She did have some vomiting as well. The vomiting has abated and has not had any since yesterday. Today she is feels very weak and lightheaded. Bloating has improved. No dysuria, urgency, or frequency. Just recently admitted for partial small bowel obstruction. ROS: See above HPI for pertinent positives & negatives. A total of 10 systems reviewed and were otherwise negative. PAST MEDICAL HISTORY:See Below PAST SURGICAL HISTORY:See Below FAMILY HISTORY:See Below SOCIAL HISTORY:See Below HOME MEDICATIONS:See Below ALLERGIES:See Below VITALS:See Below PHYSICAL EXAMINATION: GENERAL: Sitting up in bed, alert, well appearing, well nourished, no distress, non-toxic EYE EXAM: normal conjunctiva. OROPHARYNX: dry mucus membranes NECK: supple, no nuchal rigidity, no adenopathy, non-tender LUNGS: Clear to auscultation. Normal chest wall mechanics HEART: no murmurs, S1 normal and S2 normal ABDOMEN: abdomen soft, non-tender, normo-active bowel sounds, no masses, no rebound or guarding. UPPER EXTREMITIES: upper extremities are grossly normal. LOWER EXTREMITIES: No pitting edema. NEURO EXAM: Normal sensorium, cranial nerves II-XII grossly intact, normal speech, no gross weakness of arms, no gross weakness of legs. MEDICAL DECISION MAKING: Patient is a 67-year-old female who presents the ER for abdominal pain associate with hypotension. She does feel lightheaded as well. IV was established blood work was obtained. Labs show no significant leukocytosis and mild anemia 11.9. BMP with a creatinine 1.5. LFTs bilirubin was unremarkable. Troponin was negative. UA was unremarkable. COVID was negative. Patient was given 2 L of IV fluids. Pressure still [place] and soft. She did not take her blood pressure medicines this morning when she normally is hypertensive and was feeling lightheaded. Discussed with the hospitalist for further evaluation following a negative CT of the abdomen pelvis which showed an ileus versus gastroenteritis. Following 2 L of fluid pressure still remained about 99 systolic. She was fairly on symptomatic. EKG was nondiagnostic. Discussed with hospitalist for further evaluation. Triage Nursing notes reviewed. Limited review of prior medical records performed Vital Signs: reviewed and remarkable for hypotension Differential diagnosis: Differential diagnoses includes but is not limited to gastritis, peptic ulcer disease, GERD, gallbladder disease, pancreatitis, small bowel obstruction, acute coronary syndrome, pericarditis, ischemic bowel, irritable bowel disease, irritable bowel syndrome, appendicitis, diverticulitis, malignancy, hernia, urinary tract infection, torsion, /ectopic (if female), perforation, trauma, infectious. ER treatment provided: See below Diagnostics interpreted by me: ECG: Sinus rhythm rate 81 Normal axis No PVCs QTC 406 Cardiac Monitoring: An order was placed for continuous cardiac monitoring. The monitor shows a rate of 80 with sinus rhythm. Laboratory studies: As stated above and show below. Imaging studies: Chest x-ray was unremarkable CT abdomen pelvis was unremarkable Consultation(s): Discussed with Dr. Puente for further evaluation Procedures: none Critical Care: I have personally spent 31 minutes of critical care time in the direct management of this patient. This includes bedside care, interpretation of diagnostic studies, and testing, discussion with consultants, patient, and famil y members, and other required patient management activities. This 31 minutes is in excess of all separately billable procedures. Past Med/Surg History Medical History (Updated 04/04/22 @ 22:12 by Aleks Grajeda DO) Asthma Asthma Bipolar depression Chronic distal aortic occlusion Depression GERD (gastroesophageal reflux disease) Herpes labialis Hydrocephalus Hypertension Hypothyroid Hypothyroidism Iliac artery occlusion, left Ischemic necrosis of small bowel Peritonitis (acute) generalized Protein calorie malnutrition Small bowel obstruction Tobacco abuse disorder Vasculopathy Surgical History H/O exploratory laparotomy H/O tubal ligation History of bowel resection History of cholecystectomy History of tubal ligation Hx laparoscopic cholecystectomy Status post small bowel resection 06/06/18 Dr. Rosario exp lap with SBO, ileostomy mucous fistula Family History Mother Uterine cancer Father Emphysema of lung Social History (Updated 03/28/22 @ 20:59 by Lizbeth Fitzgerald PA-C) Smoking Status: Current every day smoker Years Smoked: 40; Cigarettes Per Day: 10; Second Hand Exposure: No; Hx Alcohol Use: Yes Alcohol type: hard liquor Alcohol Intake Frequency Comment: 3-4 1 ounce shots daily Hx Substance Use: Yes Non-Prescribed Medications: Marijuana Non-Prescribed Medications Comment: Daily Last Used Substance: Just Prior to Arrival Preferred Language: [place] Communication Ability: Effective Visual Impairment: No Limitations [employer] [address] Supervisor Required: No Beliefs That Will Affect Care: None marital status: marital status details: Jordy Chu Current Living Situation: Spouse current occupational status: employed current occupation: [employer] Feels Safe at Home: Yes Assistive Devices: None Allergies Allergies Allergy/AdvReac Type Severity Reaction Status Date / Time No Known Allergies Allergy Verified 04/04/22 20:28 Home Meds Home Medications Medication Instructions Recorded Confirmed gabapentin 600 mg tablet 600 mg PO HS 06/08/18 04/04/22 levothyroxine 150 mcg tablet 150 mcg PO DAILY 06/08/18 04/04/22 risperidone 2 mg tablet 2 mg PO HS 06/08/18 04/04/22 sucralfate 1 gram tablet (Carafate) 1 g PO ACHS 06/08/18 04/04/22 venlafaxine 150 mg 150 mg PO HS 06/08/18 04/04/22 capsule,extended release 24 hr (Effexor XR) venlafaxine 75 mg capsule,extended 75 mg PO QAM 06/08/18 04/04/22 release 24 hr (Effexor XR) albuterol sulfate 90 mcg/actuation 1 inh inhalation QID PRN sob 03/28/22 aerosol inhaler amlodipine 2.5 mg tablet 2.5 mg PO DAILY 03/28/22 04/04/22 cyanocobalamin (vitamin B-12) 1,000 mcg PO DAILY 03/28/22 04/04/22 1,000 mcg tablet diphenoxylate-atropine 2.5 2.5 mg PO Q6H 03/28/22 04/04/22 mg-0.025 mg tablet (Lomotil) famotidine 20 mg tablet 20 mg PO BID 03/28/22 04/04/22 fluticasone furoate 200 1 inh inhalation DAILY 03/28/22 04/04/22 mcg-vilanterol 25 mcg/dose inhalation powder (Breo Ellipta) furosemide 40 mg tablet 40 mg PO DAILY 03/28/22 04/04/22 lisinopril 40 mg tablet 40 mg PO DAILY 03/28/22 04/04/22 loperamide 2 mg tablet 2 mg PO QID 03/28/22 04/04/22 pantoprazole 40 mg tablet,delayed 80 mg PO DAILY 03/28/22 04/04/22 release trospium 60 mg capsule,extended 60 mg PO DAILY 03/28/22 04/04/22 release 24 hr varenicline 1 mg tablet 1 mg PO BID 03/28/22 04/04/22 Previous Rx's Medication Instructions Recorded folic acid 1 mg tablet 1 mg PO QAM 30 days #30 tabs 03/31/22 thiamine HCl (vitamin B1) 100 mg 100 mg PO QAM 30 days #30 tabs 03/31/22 tablet Results & Data (ED) Vital Signs Vital Signs - 24 hr 04/04/22 16:11 04/04/22 16:59 04/04/22 18:08 Temperature 36.7 C Temperature Source Temporal Artery Scan Pulse Rate 83 Pulse Rate [Left Radial] 71 Pulse Rhythm [Left Radial] Regular Pulse Strength [Left Radial] Respiratory Rate 20 20 Respiratory Effort / Characteristics Non-Labored Non-Labored Respiratory Depth Normal Normal Respiratory Pattern Blood Pressure 83/45 L Blood Pressure [Left Arm] 94/64 L Blood Pressure Mean 57 Blood Pressure Mean [Left Arm] 74 Blood Pressure Position Sitting Blood Pressure Position [Left Arm] Lying Pulse Oximetry 97 98 Oxygen Delivery Method Room Air Room Air Room Air Sepsis Recent Fever Within 48 Hours No Sepsis New/Unexplained Change in Mental Status No Sepsis Action Taken by Nursing No Action Required 04/04/22 18:55 04/04/22 20:40 04/04/22 22:00 Temperature Temperature Source Pulse Rate Pulse Rate [Left Radial] 74 71 71 Pulse Rhythm [Left Radial] Regular Regular Regular Pulse Strength [Left Radial] Normal Normal Normal Respiratory Rate 18 18 16 Respiratory Effort / Characteristics Non-Labored Spontaneous Non-Labored Spontaneous Non-Labored Spontaneous Respiratory Depth Normal Normal Normal Respiratory Pattern Regular Blood Pressure Blood Pressure [Left Arm] 115/57 L 95/40 L 99/43 L Blood Pressure Mean Blood Pressure Mean [Left Arm] 76 58 61 Blood Pressure Position Blood Pressure Position [Left Arm] Sitting Sitting Sitting Pulse Oximetry 96 94 95 Oxygen Delivery Method Room Air Room Air Room Air Sepsis Recent Fever Within 48 Hours Sepsis New/Unexplained Change in Mental Status Sepsis Action Taken by Nursing Laboratory Data Result diagrams: 04/04/22 18:41 04/04/22 18:41 Lab Results 04/04/22 04/04/22 04/04/22 Range/Units 16:19 18:11 18:41 WBC 5.77 (4.8-10.8) K/ul RBC 3.65 L (3.93-5.22) M/uL Hgb 11.9 L (12.0-16.0) g/dl Hct 34.5 (34.1-44.9) % MCV 94.5 (80.0-100.0) fL MCH 32.6 (25.0-34.0) pg MCHC 34.5 (32.0-36.0) g/dL RDW Std Deviation 49.5 H (36.4-46.3) fL RDW Coeff of Yosef 14.3 (11.5-14.5) % Plt Count 219 (130-400) K/uL MPV 9.9 (9.4-12.3) fL Immature Gran % (Auto) 0.2 % Neut % (Auto) 52.7 % Lymph % (Auto) 34.1 % [place] % (Auto) 11.6 % Eos % (Auto) 0.7 % Baso % (Auto) 0.7 % Neut # (Auto) 3.04 (1.4-6.5) K/uL Lymph # (Auto) 1.97 (1.2-3.4) K/uL [place] # (Auto) 0.67 (0.24-0.82) K/uL Eos # (Auto) 0.04 (0-0.50) K/uL Baso # (Auto) 0.04 (0-0.2) K/uL Immature Gran # (Auto) 0.01 (0.00-0.02) K/uL Sodium (136-145) mmol/L Potassium (3.5-5.1) mmol/L Chloride (98-107) mmol/L Carbon Dioxide (21-32) mmol/L Anion Gap (3-11) BUN (6-23) mg/dl Creatinine (0.6-1.2) mg/dl Est Cr Clr Drug Dosing ml/min Est GFR ( Amer) ml/min Est GFR (Non-Af Amer) ml/min BUN/Creatinine Ratio (10-20) Glucose (70-99(Fasting)) mg/dl Calcium (8.5-10.1) mg/dl Total Bilirubin (0.2-1.0) mg/dl AST (13-39) U/L ALT (7-52) U/L Alkaline Phosphatase (34-104) U/L Troponin I High Sens (0-14) pg/ml Total Protein (6.0-8.3) gm/dl Albumin (3.4-5.0) gm/dl Globulin (2.5-4.0) gm/dl Albumin/Globulin Ratio (0.9-2) Urine Color Yellow Urine Appearance Clear (Clear) Urine pH 5.0 (4.5-7.5) Ur Specific [place] 1.014 (1.000-1.030) Urine Protein Negative (Negative) Urine Glucose (UA) Negative (Negative) Urine Ketones Trace H (Negative) Urine Blood Negative (Negative) Urine Nitrite Negative (Negative) Urine Bilirubin Negative (Negative) Urine Urobilinogen Negative (Negative) Ur Leukocyte Esterase Negative (Negative) SARS-CoV-2, RNA, NAAT NEGATIVE (NEGATIVE) 04/04/22 04/04/22 Range/Units 18:41 18:41 WBC (4.8-10.8) K/ul RBC (3.93-5.22) M/uL Hgb (12.0-16.0) g/dl Hct (34.1-44.9) % MCV (80.0-100.0) fL MCH (25.0-34.0) pg MCHC (32.0-36.0) g/dL RDW Std Deviation (36.4-46.3) fL RDW Coeff of Yosef (11.5-14.5) % Plt Count (130-400) K/uL MPV (9.4-12.3) fL Immature Gran % (Auto) % Neut % (Auto) % Lymph % (Auto) % [place] % (Auto) % Eos % (Auto) % Baso % (Auto) % Neut # (Auto) (1.4-6.5) K/uL Lymph # (Auto) (1.2-3.4) K/uL [place] # (Auto) (0.24-0.82) K/uL Eos # (Auto) (0-0.50) K/uL Baso # (Auto) (0-0.2) K/uL Immature Gran # (Auto) (0.00-0.02) K/uL Sodium 139 (136-145) mmol/L Potassium 4.2 (3.5-5.1) mmol/L Chloride 102 (98-107) mmol/L Carbon Dioxide 30 (21-32) mmol/L Anion Gap 7 (3-11) BUN 27 H (6-23) mg/dl Creatinine 1.56 H (0.6-1.2) mg/dl Est Cr Clr Drug Dosing 27.1 ml/min Est GFR ( Amer) 40.0 ml/min Est GFR (Non-Af Amer) 34.5 ml/min BUN/Creatinine Ratio 17.3 (10-20) Glucose 81 (70-99(Fasting)) mg/dl Calcium 8.8 (8.5-10.1) mg/dl Total Bilirubin 0.4 (0.2-1.0) mg/dl AST 11 L (13-39) U/L ALT 10 (7-52) U/L Alkaline Phosphatase 70 (34-104) U/L Troponin I High Sens 7.0 Cancelled (0-14) pg/ml Total Protein 5.4 L (6.0-8.3) gm/dl Albumin 2.8 L (3.4-5.0) gm/dl Globulin 2.6 (2.5-4.0) gm/dl Albumin/Globulin Ratio 1.1 (0.9-2) Urine Color Urine Appearance (Clear) Urine pH (4.5-7.5) Ur Specific [place] (1.000-1.030) Urine Protein (Negative) Urine Glucose (UA) (Negative) Urine Ketones (Negative) Urine Blood (Negative) Urine Nitrite (Negative) Urine Bilirubin (Negative) Urine Urobilinogen (Negative) Ur Leukocyte Esterase (Negative) SARS-CoV-2, RNA, NAAT (NEGATIVE) Administered Medications Discontinued Medications Sodium Chloride (Nss 1000ml) 1,000 mls @ 999 mls/hr IV .Q1H1M ONE Stop: 04/04/22 18:58 Last Infusion: 04/04/22 20:36 Dose: 0 mls/hr Documented By: Admin: 04/04/22 18:39 Dose: 999 mls/hr Documented By: JOYCE Sodium Chloride (Nss 1000ml) 1,000 mls @ 999 mls/hr IV .Q1H1M ONE Stop: 04/04/22 21:51 Last Admin: 04/04/22 20:56 Dose: 999 mls/hr Documented By: PAIGE Imaging Data Radiologist's Impression: Chest X-Ray 04/04/22 16:15 XR chest 1V portable HISTORY: hypotension COMPARISON: Chest 03/28/2022. FINDINGS: Slightly rotated study. No pneumothorax. No pleural fusions. The lungs are clear. The heart is normal in size. There are calcifications within the aortic knob, unchanged. IMPRESSION: No acute process. ACT 112: Negative or not required by law. Electronically signed by: Willy Almeida M.D. 04/04/2022 4:45 PM Abdomen/Pelvis CT 04/04/22 17:[address] WITHOUT CONTRAST CT DOSE: 252.79 mGy.cm HISTORY: Generalized abdominal pain. Assess for bowel obstruction. TECHNIQUE: Multiaxial CT images of the abdomen and pelvis were performed without contrast. A dose lowering technique was utilized adhering to the principles of ALARA. COMPARISON STUDY: Abdomen and pelvis CT 03/28/2022. FINDINGS: A few bibasilar linear densities suggesting scarring or subsegmental atelectasis. No pneumoperitoneum. No pneumatosis. 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 Old mild superior endplate compression deformity at T12. Mild diffuse body wall edema. Moderate size fat-containing ventral hernia within the left anterior abdominal wall best seen on image 199. The hernia sac measures 6.2 cm. There is also small right anterior abdominal wall ventral hernia. These do not contain small bowel loops at this time. The unenhanced liver, spleen, adrenal glands, and pancreas u nremarkable. No hydronephrosis. Punctate cortical calcifications are again noted within the kidneys. No definite renal or ureteral calculi. Stable hypodense lesions within the kidneys. These are incompletely characterized on this noncontrast study but favor cysts. Moderate calcified plaque within the ectatic abdominal aorta measuring up to 2.4 cm in diameter. Severe calcified plaque at the takeoff of the left common iliac artery and right common iliac artery. No pelvic free fluid. The bladder is unremarkable. The uterus and bilateral adnexa are within normal limits. Mild to moderate dilatation of multiple loops of large and small bowel. These bowel loops are also fluid-filled. The stomach is mildly distended and filled with fluid. This has slightly improved. No clear transition point at this time to suggest a bowel obstruction. There is focal twisting of the distal transverse colon on images 146 through 160. However, the bowel distal to this area is distended and fluid-filled. Therefore, this does not appear to represent an internal hernia/volvulus. Postoperative changes consistent with a prior right hemicolectomy. IMPRESSION: 1. Multiple dilated fluid-filled loops of large and small bowel seen throughout the abdomen. The stomach is also mildly distended and filled with fluid. No clear transition point at this time to suggest a bowel obstruction. Therefore, this favors an ileus or gastroenteritis. Follow-up can be performed if the patient's symptoms persist to exclude the possibility of a developing bowel obstruction. 2. Fat-containing ventral hernias again noted. 3. Postoperative changes as described above. ACT 112: Negative or not required by law. Electronically signed by: Willy Almeida M.D. 04/04/2022 6:36 PM Chest X-Ray 04/04/22 17:58 XR chest 1V portable HISTORY: hypotension COMPARISON: Chest 04/04/2022. FINDINGS: The lungs are clear. Cardiac silhouette is normal in size. No pleural effusions. No pneumothorax. IMPRESSION: No acute process. ACT 112: Negative or not required by law. Electronically signed by: Willy Almeida M.D. 04/04/2022 6:44 PM Discharge Plan Visit Data Chief Complaint: Hypotension Stated Complaint: LOW BLOOD PRESSURE ED Provider: Aleks Grajeda Discharge Problem: Acute hypotension, Weakness, Abdominal pain Forms Stand Alone Forms: [facility] Prescriptions Prescriptions: No Action sucralfate [Carafate] 1 gram Tablet 1 g PO ACHS gabapentin 600 mg Tablet 600 mg PO HS levothyroxine 150 mcg Tablet 150 mcg PO DAILY risperidone 2 mg Tablet 2 mg PO HS venlafaxine [Effexor XR] 150 mg Capsule,Extended Release 24hr 150 mg PO HS venlafaxine [Effexor XR] 75 mg Capsule,Extended Release 24hr 75 mg PO QAM furosemide 40 mg tablet 40 mg PO DAILY loperamide 2 mg Tablet 2 mg PO QID cyanocobalamin (vitamin B-12) 1,000 mcg Tablet 1,000 mcg PO DAILY amlodipine 2.5 mg tablet 2.5 mg PO DAILY famotidine 20 mg Tablet 20 mg PO BID pantoprazole 40 mg tablet,delayed release (DR/EC) 80 mg PO DAILY albuterol sulfate 90 mcg/actuation Hfa Aerosol Inhaler 1 inh INHALATION QID PRN (Reason: sob) lisinopril 40 mg tablet 40 mg PO DAILY varenicline 1 mg tablet 1 mg PO BID trospium 60 mg capsule,extended release 24hr 60 mg PO DAILY fluticasone furoate-vilanterol [Breo Ellipta] 200-25 mcg/dose blister with device 1 inh INHALATION DAILY diphenoxylate-atropine [Lomotil] 2.5-0.025 mg tablet 2.5 mg PO Q6H thiamine HCl (vitamin B1) 100 mg Tablet 100 mg PO QAM 30 Days Qty: 30 0RF folic acid 1 mg Tablet 1 mg PO QAM 30 Days Qty: 30 0RF Referrals Referrals: Jacek Rosales MD [Primary Care Provider] -
--- NOTE | 2022-04-04 18:38 | CT Scan Report ---
ABDOMEN AND PELVIS CT WITHOUT CONTRAST CT DOSE: 252.79 mGy.cm HISTORY: Generalized abdominal pain. Assess for bowel obstruction. TECHNIQUE: Multiaxial CT images of the abdomen and pelvis were performed without contrast. A dose lo wering technique was utilized adhering to the principles of ALARA. COMPARISON STUDY: Abdomen and pelvis CT 03/28/2022. FINDINGS: A few bibasilar linear densities suggesting scarring or subsegmental atelectasis. No pneumo peritoneum. No pneumatosis. Bilateral femoral head avascular necrosis without articular collapse agai n noted. Old mild superior endplate compression deformity at T12. Mild diffuse body wall edema. Moder ate size fat-containing ventral hernia within the left anterior abdominal wall best seen on image 199 . The hernia sac measures 6.2 cm. There is also small right anterior abdominal wall ventral hernia. T hese do not contain small bowel loops at this time. The unenhanced liver, spleen, adrenal glands, and pancreas unremarkable. No hydronephrosis. Punctate cortical calcifications are again noted within th e kidneys. No definite renal or ureteral calculi. Stable hypodense lesions within the kidneys. These are incompletely characterized on this noncontrast study but favor cysts. Moderate calcified plaque w ithin the ectatic abdominal aorta measuring up to 2.4 cm in diameter. Severe calcified plaque at the takeoff of the left common iliac artery and right common iliac artery. No pelvic free fluid. The blad timoteo is unremarkable. The uterus and bilateral adnexa are within normal limits. Mild to moderate dilat ation of multiple loops of large and small bowel. These bowel loops are also fluid-filled. The stomac h is mildly distended and filled with fluid. This has slightly improved. No clear transition point at this time to suggest a bowel obstruction. There is focal twisting of the distal transverse colon on images 146 through 160. However, the bowel distal to this area is distended and fluid-filled. Therefo re, this does not appear to represent an internal hernia/volvulus. Postoperative changes consistent w ith a prior right hemicolectomy. IMPRESSION: 1. Multiple dilated fluid-filled loops of large and small bowel seen throughout the abdomen. The stom ach is also mildly distended and filled with fluid. No clear transition point at this time to suggest a bowel obstruction. Therefore, this favors an ileus or gastroenteritis. Follow-up can be performed if the patient's symptoms persist to exclude the possibility of a developing bowel obstruction. 2. Fat-containing ventral hernias again noted. 3. Postoperative changes as described above. ACT 112: Negative or not required by law. Electronically signed by: Willy Almeida M.D. 04/04/2022 6:36 PM
--- NOTE | 2022-04-04 18:45 | XRay Report ---
XR chest 1V portable HISTORY: hypotension COMPARISON: Chest 04/04/2022. FINDINGS: The lungs are clear. Cardiac silhouette is normal in size. No pleural effusions. No pneumot horax. IMPRESSION: No acute process. ACT 112: Negative or not required by law. Electronically signed by: Willy Almeida M.D. 04/04/2022 6:44 PM
[2022-04-04 19:07] LABS: Basophils # (auto) 0.04 K/uL (0-0.2); Basophils % (auto) 0.7 %; Eosinophils # (auto) 0.04 K/uL (0-0.50); Eosinophils % (auto) 0.7 %; Hematocrit (blood only) 34.5 % (34.1-44.9); Hemoglobin 11.9 g/dl (12.0-16.0); Immature Granulocytes # (auto) 0.01 K/uL (0.00-0.02); Immature Granulocytes % (auto) 0.2 %; Lymphocytes # (auto) 1.97 K/uL (1.2-3.4); Lymphocytes % (auto) 34.1 %; Mean Corpuscular Hemoglobin 32.6 pg (25.0-34.0); Mean Corpuscular Hgb Conc 34.5 g/dL (32.0-36.0); Mean Corpuscular Volume 94.5 fL (80.0-100.0); Mean Platelet Volume 9.9 fL (9.4-12.3); Monocytes # (auto) 0.67 K/uL (0.24-0.82); Monocytes % (auto) 11.6 %; Neutrophils # (auto) 3.04 K/uL (1.4-6.5); Neutrophils % (auto) 52.7 %; Platelet Count 219 K/uL (130-400); RDW Coefficient of Variation 14.3 % (11.5-14.5); RDW Standard Deviation 49.5 fL (36.4-46.3); Red Blood Count 3.65 M/uL (3.93-5.22); White Blood Count 5.77 K/ul (4.8-10.8)
[2022-04-04 19:28] LABS: Albumin Globulin Ratio 1.1 (0.9-2); Albumin Level 2.8 gm/dl (3.4-5.0); BUN Creatinine Ratio 17.3 (10-20); Bilirubin,Total 0.4 mg/dl (0.2-1.0); Calcium 8.8 mg/dl (8.5-10.1); Creatinine Clr Calc Pharmacy 27.1 ml/min; Est GFR (Non-African American) 34.5 ml/min; Globulin 2.6 gm/dl (2.5-4.0); Potassium 4.2 mmol/L (3.5-5.1); Total Protein 5.4 gm/dl (6.0-8.3)
--- NOTE | 2022-04-04 23:50 | History and Physical Report ---
DATE OF ADMISSION: 04/04/2022. CHIEF COMPLAINT: Hypotension, ileus. HISTORY OF PRESENT ILLNESS: This is a 67-year-old female with past medical history significant for COPD, hypertension, hypothyroidism, bipolar disorder, history of ischemic small bowel obstruction, status post small bowel resection with ileostomy and eventual reversal, chronic diarrhea, chronic nausea and vomiting. Recently was in the hospital for hypotension and also partial small bowel obstruction, managed conservatively and improved and discharged, comes back because of hypotension. The patient says at home, her blood pressure is running low, feeling dizzy, is not getting better, so she came in here and she says she had vomiting couple of times yesterday and today nauseous, but she was able to eat, no abdominal pain, moved her bowels today. Denies any blood in the stools. Normal bladder movements. No swelling in the legs. No chest pain, no shortness of breath. Currently, no cough, no fevers, no headache, no blurred visions, no sore throat. In the ER, her blood pressure was low; when she came in, her SBP in 80s. She got fluids. Currently with fluids, BP is 95/43. CT scan showing possible ileus. Creatinine is 1.5, which was 0.6 last week. ALLERGIES: No known drug allergies. PAST MEDICAL HISTORY: As mentioned above. PAST SURGICAL HISTORY: Colonoscopy, EGDs, exploratory laparotomy, ligation of oviducts, cholecystectomy, repair of the bowel opening. MEDICATIONS: The patient is on albuterol 1 inhalation q.i.d. p.r.n., amlodipine 2.5 mg p.o. daily, vitamin B12 1000 mcg p.o. daily, Lomotil 2.5 mg p.o. p.r.n., famotidine 20 mg p.o. b.i.d., Breo Ellipta 1 inhalation daily, folic acid 1 mg p.o. daily, furosemide 40 mg p.o. daily, gabapentin 600 mg p.o. at bedtime, levothyroxine 150 mcg p.o. daily, lisinopril 40 mg p.o. daily, Protonix 80 mg p.o. daily, risperidone 2 mg p.o. at bedtime, sucralfate 1 gram p.o. a.c. and at bedtime, thiamine 100 mg p.o. daily, trospium 60 mg p.o. daily, chantix 1 mg p.o. b.i.d., Effexor 75 mg a.m. and 150 mg p.o. at bedtime. FAMILY HISTORY: Significant for mother had skin cancer, endometrial cancer; father had emphysema. SOCIAL HISTORY: . Quit smoking in 2019, smoked half pack a day for 40 years. Alcohol, 12 drinks a week. Smokes marijuana. REVIEW OF SYSTEMS: As per HPI. Rest of the review of systems is negative. PHYSICAL EXAMINATION: GENERAL: The patient is of moderate build, not in acute distress. VITAL SIGNS: Temperature 36.7, pulse 71, respiratory rate 16, blood pressure 99/43, oxygen 95% on room air. HEENT: Pupils equal, round and reactive to light. Oral mucosa moist. NECK: No JVD, no neck masses. CARDIOVASCULAR: S1 and S2 heard. Regular rate and rhythm. No murmur, no gallop. RESPIRATORY SYSTEM: Normal AP diameter. No accessory muscle use. No wheezing, no crackles. ABDOMEN: Soft. Bowel sounds sluggish, nontender, no distention. CENTRAL NERVOUS SYSTEM: Alert and oriented. Speech is clear. No facial droop. Obeys simple commands. Moves extremities. EXTREMITIES: No edema, no erythema. LABORATORY DATA: WBC 5.7, hemoglobin 11.9, hematocrit 34.5, platelets 219. Sodium 139, potassium 4.2, chloride 102, bicarbonate 30, BUN 27, creatinine 1.5, serum glucose 81, calcium 8.8, total bilirubin 0.4, AST 11, ALT 10, alkaline phosphatase 70. Urinalysis negative. SARS-CoV-2 rapid test negative. IMAGING DATA: Chest x-ray: No acute process. CT of abdomen and pelvis without contrast: Multiple dilated fluid-filled loops of large and small bowel seen throughout the abdomen. Stomach is also mildly distended and filled with fluid. No clear transition point at this time to suggest a bowel obstruction. Therefore, this favors an ileus or gastroenteritis. Fat-containing ventral hernias. EKG: Normal sinus rhythm at a rate of 81, no significant change was found. ASSESSMENT AND PLAN: This is a 67-year-old female who presents with hypotension and ileus. 1. Hypotension: The patient vomited a couple of times yesterday. We will hold her home blood pressure medication of lisinopril. Hold her Lasix, amlodipine. Continue with fluids of normal saline at 125 mL per hour and monitor. If not improving, we will get an echocardiogram. 2. Ileus on CAT scan: We will keep her n.p.o. General surgery consult in a.m. Follow repeat KUB in a.m. IV fluids, n.p.o., IV antiemetics. 3. Acute kidney Injury: Creatinine of 1.5, baseline was 0.6. Holding lisinopril, Lasix and blood pressure medications and getting fluids. We will follow the repeat laboratories in the a.m. 4. History of diastolic congestive heart failure: Holding Lasix and lisinopril. Getting fluids. Monitor for any volume overload. 5. Hypertension: Holding all her oral antihypertensives as the patient is hypotensive. 6. Chronic obstructive pulmonary disease and history of tobacco abuse: On Chantix. Continue home inhalers. 7. History of alcohol abuse, marijuana abuse: On daily thiamine and folic acid. We will place on IV Ativan p.r.n. for now. 8. Bipolar: Continue with risperidone. 9. Deep venous thrombosis prophylaxis: Heparin subcutaneously. DISPOSITION: Admit to [facility]. PT/OT prior to discharge. Social service to help with discharge planning. Job ID: [id number] MTDD
[2022-04-05] MEDS ORDERED: ONDANSETRON INJ 2 MG/ML 2 ML VIAL IV PRN (00:14)
[2022-04-05] MEDS ORDERED: LORazepam 1 MG in SYRINGE 0.5 ML IV PRN (00:14)
[2022-04-05] MEDS ORDERED: ALBUTEROL HFA 8 GM INHALER INH PRN (00:14)
[2022-04-05] MEDS ORDERED: NITROGLYCERIN SL 0.4 MG/TAB TAB SL PRN (00:14)
[2022-04-05] MEDS: SODIUM CHLORIDE 0.9% 1000ML 1,000 ML IV SCH ×3 (01:24→21:30)
[2022-04-05] MEDS: risperiDONE 2 MG TABLET PO SCH ×2 (01:45→21:00)
[2022-04-05] MEDS: LEVOTHYROXINE SODIUM 150 MCG TABLET PO SCH (05:40)
[2022-04-05] MEDS: HEPARIN SOD 5,000 UNIT/0.5 ML VIAL SQ SCH ×2 (05:41→13:25)
[2022-04-05 06:23] LABS: Basophils # (auto) 0.06 K/uL (0-0.2); Eosinophils # (auto) 0.08 K/uL (0-0.50); Eosinophils % (auto) 1.4 %; Hematocrit (blood only) 37.4 % (34.1-44.9); Hemoglobin 12.9 g/dl (12.0-16.0); Immature Granulocytes # (auto) 0.01 K/uL (0.00-0.02); Immature Granulocytes % (auto) 0.2 %; Lymphocytes # (auto) 2.09 K/uL (1.2-3.4); Mean Corpuscular Hemoglobin 33.2 pg (25.0-34.0); Mean Corpuscular Hgb Conc 34.5 g/dL (32.0-36.0); Mean Corpuscular Volume 96.1 fL (80.0-100.0); Mean Platelet Volume 9.8 fL (9.4-12.3); Monocytes # (auto) 0.65 K/uL (0.24-0.82); Monocytes % (auto) 11.2 %; Neutrophils # (auto) 2.91 K/uL (1.4-6.5); Neutrophils % (auto) 50.2 %; Platelet Count 222 K/uL (130-400); RDW Coefficient of Variation 14.1 % (11.5-14.5); RDW Standard Deviation 49.2 fL (36.4-46.3); Red Blood Count 3.89 M/uL (3.93-5.22)
[2022-04-05 07:06] LABS: Calcium 8.4 mg/dl (8.5-10.1); Creatinine Clr Calc Pharmacy 42.3 ml/min; Est GFR (African American) 68.5 ml/min; Est GFR (Non-African American) 59.1 ml/min; Magnesium 1.3 mg/dl (1.7-2.4); Potassium 3.9 mmol/L (3.5-5.1)
[2022-04-05] MEDS: THIAMINE HCL 100 MG TAB PO SCH (08:10)
[2022-04-05] MEDS: FOLIC ACID 1 MG TAB PO SCH (08:10)
[2022-04-05] MEDS: SUCRALFATE 1 GM TAB PO SCH ×4 (08:10→21:00)
[2022-04-05] MEDS: PANTOprazole 40 MG TAB PO SCH (08:10)
[2022-04-05] MEDS: FLUTICASONE/VILANTEROL 200/25MCG 14 PUFFS/INHALER INH SCH (08:10)
[2022-04-05] MEDS: FAMOTIDINE 20 MG TAB PO SCH (08:10)
[2022-04-05] MEDS: VENLAFAXINE HCL XR 75 MG CAPXR PO SCH (08:10)
[2022-04-05] MEDS: TOLTERODINE TARTRATE LA 2 MG CAPCR PO SCH (08:10)
[2022-04-05] MEDS: CYANOCOBALAMIN (B-12) 500 MCG TABLET PO SCH (08:11)
--- NOTE | 2022-04-05 09:15 | XRay Report ---
KUB HISTORY: Abdominal distention. Ileus. Follow-up. COMPARISON: KUB 03/29/2022. FINDINGS: Mildly dilated gas-filled loops of large and small bowel are again noted. This is similar t o the prior study. There are suture material within the right side of the abdomen. No renal calculi. No ureteral calculi. No pneumoperitoneum or pneumatosis. IMPRESSION: No change in the mildly dilated gas-filled loops of large and small bowel seen throughout the abdomen . This could represent an ileus versus gastroenteritis. ACT 112: Negative or not required by law. Electronically signed by: Willy Almeida M.D. 04/05/2022 9:13 AM
[2022-04-05] MEDS: MAGNESIUM SULFATE / D5W 1 GM/100 ML BAG IV SCH ×2 (09:30→11:30)
--- NOTE | 2022-04-05 12:32 | Electrocardiogram Report ---
Test Reason : Blood Pressure : / mmHG Vent. Rate : 081 BPM Atrial Rate : 081 BPM P-R Int : 152 ms QRS Dur : 076 ms QT Int : 350 ms P-R-T Axes : 092 -21 063 degrees QTc Int : 406 ms Normal sinus rhythm Low voltage QRS Borderline ECG When compared with ECG of 28-MAR-2022 16:37, No significant change was found Confirmed by Jamie Garg ([id number]) on 04/05/2022 12:32:41 PM Referred By: REFERRED SELF Confirmed By:Joseph Garg
[2022-04-05] MEDS: ACETAMINOPHEN 325 MG TAB PO PRN (17:07)
--- NOTE | 2022-04-05 19:45 | Hospitalist Progress Note ---
Date of Service April 05, 2022 Assessment & Plan (1) Acute hypotension: Plan: Presented on admission with low BP mostly due to poor oral intake/ vomiting/ and antihypertensive meds BP on admission 83/45 Received IVF in the ER BP improved Continue to hold Lisinopril, amlodipine and Lasix Continue monitor BP closely Vomiting/Nausea Pt had on episode of Hematochezia CT abdomen/pelvis showed multiple dilated fluid-filled loops of large and small bowel seen throughout the abdomen. The stomach is also mildly distended and filled with fluid. KUB today showed no change in the mildly dilated gas-filled loops of large and small bowel seen throughout the abdomen. Starting on clear liquid diet Surgery consult - pending will repeat KUB in am Acute kidney Injury: Creatinine on admission 1.5, baseline was 0.6. Mostly due to hypotension, vomiting and poor oral intake Continue to hold lisinopril, Lasix Will continue monitor BMP History of diastolic congestive heart failure: No sign of fluid overload while on IVF Will decrease IVF Continue to hold lasix Hypertension Hypotension on admission Continue to hold antihypertensive meds Continue monitor BP History of alcohol abuse Marijuana abuse: Counseling on alcohol and marijuana cessation Continue daily thiamine and folic acid. Bipolar disorder Continue with risperidone. Deep venous thrombosis prophylaxis Heparin subcutaneously on hold due to bright red stool Admission and Anticipated Discharge Date Admission Date: April 04, 2022 Subjective Patient was seen and evaluated for follow-up of low BP, dizziness and possible ileus Pt was seen early with no acute distress watching TV But later I went back to see her for a second time to provide update with the Pt said was not too happy being in the hospital Nurse said that she had an episode of bright red stool Denies any chest pain, palpitation, dizziness, and SOB Review of Systems Review of Systems: All systems reviewed & are unremarkable except as noted in Subjective Physical Exam Physical Exam: General- No acute distress Head- atraumatic Eyes- PERRL, EOMI, ENT- oropharynx clear Neck- supple, no JVD Lungs- clear to auscultation Heart- regular rhythm; no murmur Abdomen- normal bowel sounds, soft, nontender Extremities- no calf tenderness Neuro- alert, oriented x 3; PERRL, EOMI; no facial palsy; no dysarthria Skin- warm & dry Results & Data Results & Data ([facility]) Vital Signs (Past 12 Hours) Vital Signs Temp Pulse Pulse Resp BP BP Pulse Ox 04/05/22 18:59 36.8 C 74 18 144/76 H 95 04/05/22 15:33 36.6 C 75 18 132/59 L 94 04/05/22 15:15 73 04/05/22 13:48 36.6 C 76 18 127/73 96 04/05/22 08:48 36.7 C 80 17 123/67 92 04/05/22 07:55 80 O2 Del Method 04/05/22 18:59 Room Air 04/05/22 15:33 Room Air 04/05/22 15:15 04/05/22 13:48 Room Air 04/05/22 08:48 Room Air 04/05/22 07:55
[2022-04-05] MEDS ORDERED: VENLAFAXINE HCL XR 150 MG CAPXR PO SCH (21:00)
[2022-04-05] MEDS ORDERED: GABAPENTIN 600 MG TAB PO SCH (21:00)
[2022-04-06] MEDS: LEVOTHYROXINE SODIUM 150 MCG TABLET PO SCH (06:03)
[2022-04-06] MEDS: ACETAMINOPHEN 325 MG TAB PO PRN (07:12)
[2022-04-06] MEDS: SUCRALFATE 1 GM TAB PO SCH ×3 (07:13→18:01)
[2022-04-06] MEDS: THIAMINE HCL 100 MG TAB PO SCH (08:41)
[2022-04-06] MEDS: VENLAFAXINE HCL XR 75 MG CAPXR PO SCH (08:41)
[2022-04-06] MEDS: FAMOTIDINE 20 MG TAB PO SCH (08:41)
[2022-04-06] MEDS: CYANOCOBALAMIN (B-12) 500 MCG TABLET PO SCH (08:41)
[2022-04-06] MEDS: FOLIC ACID 1 MG TAB PO SCH (08:41)
[2022-04-06] MEDS: TOLTERODINE TARTRATE LA 2 MG CAPCR PO SCH (08:41)
[2022-04-06] MEDS: PANTOprazole 40 MG TAB PO SCH (08:41)
[2022-04-06] MEDS: FLUTICASONE/VILANTEROL 200/25MCG 14 PUFFS/INHALER INH SCH (08:42)
--- NOTE | 2022-04-06 08:59 | XRay Report ---
XR KUB/Abdomen 1 view CLINICAL HISTORY: Follow up ileus versus gastroenteritis. COMPARISON STUDY: 04/05/2022 TECHNIQUE: Single view of the abdomen. FINDINGS: Compared to the previous examination, the bowel gas pattern is within normal limits without evidence for dilatation or obstruction. No definite evidence for ileus or gastroenteritis is identified. There is no evidence for organomegaly or gross intra-abdominal mass. No abnormal calcifications are seen a long the course of the urinary tracts bilaterally. No acute osseous pathology. IMPRESSION: 1. No acute intra-abdominal abnormality. ACT 112: Negative or not required by law. Electronically signed by: Chester Torres M.D. 04/06/2022 8:57 AM
[2022-04-06 10:24] LABS: Hematocrit (blood only) 35.7 % (34.1-44.9); Hemoglobin 12.3 g/dl (12.0-16.0); Mean Corpuscular Hemoglobin 32.1 pg (25.0-34.0); Mean Corpuscular Hgb Conc 34.5 g/dL (32.0-36.0); Mean Corpuscular Volume 93.2 fL (80.0-100.0); Mean Platelet Volume 9.6 fL (9.4-12.3); Platelet Count 217 K/uL (130-400); RDW Coefficient of Variation 13.8 % (11.5-14.5); RDW Standard Deviation 46.8 fL (36.4-46.3); Red Blood Count 3.83 M/uL (3.93-5.22); White Blood Count 6.05 K/ul (4.8-10.8)
[2022-04-06 10:43] LABS: BUN Creatinine Ratio 13.3 (10-20); Calcium 8.7 mg/dl (8.5-10.1); Creatinine Clr Calc Pharmacy 56.4 ml/min; Est GFR (African American) 96.9 ml/min; Est GFR (Non-African American) 83.6 ml/min; Magnesium 1.8 mg/dl (1.7-2.4)
--- NOTE | 2022-04-06 10:50 | Surgery Consultation ---
Date of Consultation April 06, 2022 Assessment & Plan (1) Acute hypotension: (2) Ileus: Plan 67 year-old female with history of small bowel resection due to ischemic bowel, ileostomy, and reversal in 2018 who was recently admitted to hospital on 03/28/2022 for hypotension and SBO now presents again for hypotension. CT scan showing probably ileus dilated and fluid filled loops of small and large bowel . 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 No prior history of EGD per patient. History of chronic diarrhea since her surgery. Now with hematochezia. Hemodynamically stable. KUB today showing resolution of small and large bowel dilatation + bowel movements yesterday Plan: No surgical intervention required Likely had ileus which has resolved Would recommend GI evaluation for chronic nausea, vomiting (2 months) and chronic diarrhea s/p surgery. Her diarrhea and vomiting likely causing her to be dehydrated and then hypotensive. She may need upper endoscopy for further evaluation of her nausea and vomiting. Continue current medical management Our services signing off, please call with questions/concerns. Dr. Faulkner has seen and examined pt, agrees with above. History of Present Illness Reason for Consultation: Ileus Requesting Physician: Dr. Eduardo MD Attending Physician: Floyd Gilliam MD History of Present Illness Lisa is a 67 year-old female who was recently admitted to hospital for hypotension and SBO on 03/28/2022 and presented again to emergency department for vomiting and hypotension. She states she felt good for 1-2 days after her dis charge and then started having low blood pressure again. Was having diarrhea daily as per usual. She had a CT scan in the emergency department which showed dilatation of small and large bowel consistent with Ileus. She states she is feeling well today. Had 4 bowel movements yesterday with last one having bright red blood. States she had nausea this am but no vomiting. Has not had any abdominal pain throughout this entire course. States she tolerated liquid diet this am without pain or nausea or vomiting. Nausea and vomiting have been persistent for last 2 months. States it will just happen randomly and not always associated with eating. Diarrhea on a daily basis. No increased frequency of heartburn/reflux with the nausea and vomiting. Occasional bloating but not all the time. Does not believe she has had an EGD in the past. Colonoscopy potentially 1 year ago which was normal per patient. No prior history of blood in her stools. Allergies Allergy/AdvReac Type Severity Reaction Status Date / Time No Known Allergies Allergy Verified 04/04/22 20:28 Home Medications Medication Instructions Recorded Confirmed Type gabapentin 600 mg tablet 600 mg PO HS 06/08/18 04/04/22 History levothyroxine 150 mcg tablet 150 mcg PO DAILY 06/08/18 04/04/22 History risperidone 2 mg tablet 2 mg PO HS 06/08/18 04/04/22 History sucralfate 1 gram tablet (Carafate) 1 g PO ACHS 06/08/18 04/04/22 History venlafaxine 150 mg 150 mg PO HS 06/08/18 04/04/22 History capsule,extended release 24 hr (Effexor XR) venlafaxine 75 mg capsule,extended 75 mg PO QAM 06/08/18 04/04/22 History release 24 hr (Effexor XR) albuterol sulfate 90 mcg/actuation 1 inh inhalation QID PRN sob 03/28/22 04/04/22 History aerosol inhaler amlodipine 2.5 mg tablet 2.5 mg PO DAILY 03/28/22 04/04/22 History cyanocobalamin (vitamin B-12) 1,000 mcg PO DAILY 03/28/22 04/04/22 History 1,000 mcg tablet diphenoxylate-atropine 2.5 2.5 mg PO Q6H 03/28/22 04/04/22 History mg-0.025 mg tablet (Lomotil) famotidine 20 mg tablet 20 mg PO BID 03/28/22 04/04/22 History fluticasone furoate 200 1 inh inhalation DAILY 03/28/22 04/04/22 History mcg-vilanterol 25 mcg/dose inhalation powder (Breo Ellipta) furosemide 40 mg tablet 40 mg PO DAILY 03/28/22 04/04/22 History lisinopril 40 mg tablet 40 mg PO DAILY 03/28/22 04/04/22 History loperamide 2 mg tablet 2 mg PO QID 03/28/22 04/04/22 History pantoprazole 40 mg tablet,delayed 80 mg PO DAILY 03/28/22 04/04/22 History release trospium 60 mg capsule,extended 60 mg PO DAILY 03/28/22 04/04/22 History release 24 hr varenicline 1 mg tablet 1 mg PO BID 03/28/22 04/04/22 History folic acid 1 mg tablet 1 mg PO QAM 30 days #30 tabs 03/31/22 04/04/22 Rx thiamine HCl (vitamin B1) 100 mg 100 mg PO QAM 30 days #30 tabs 03/31/22 04/04/22 Rx tablet Patient History Medical History (Updated 04/06/22 @ 10:58 by Purnima Maurer PA-C) Asthma Asthma Bipolar depression Chronic distal aortic occlusion Depression GERD (gastroesophageal reflux disease) Herpes labialis Hydrocephalus Hypertension Hypothyroid Hypothyroidism Iliac artery occlusion, left Ischemic necrosis of small bowel Peritonitis (acute) generalized Protein calorie malnutrition Small bowel obstruction Tobacco abuse disorder Vasculopathy Surgical History H/O exploratory laparotomy H/O tubal ligation History of bowel resection History of cholecystectomy History of tubal ligation Hx laparoscopic cholecystectomy Status post small bowel resection 06/06/18 Dr. Rosario exp lap with SBO, ileostomy mucous fistula Family History Mother Uterine cancer Father Emphysema of lung Social History (Updated 03/28/22 @ 20:59 by Lizbeth Fitzgerald PA-C) Smoking Status: Current every day smoker Years Smoked: 40; Cigarettes Per Day: 2; Second Hand Exposure: No; Do You Dip or Chew Tobacco: No; Tobacco Cessation Education Requested by Patient: No Hx Alcohol Use: Yes Alcohol type: hard liquor Alcohol Intake Frequency Comment: 3-4 1 ounce shots daily Hx Substance Use: Yes Non-Prescribed Medications: Marijuana Non-Prescribed Medications Comment: Daily Last Used Substance: Unknown Preferred Language: Italian Communication Ability: Effective Visual Impairment: No Limitations Field Mechanic Required: No Beliefs That Will Affect Care: None marital status: marital status details: Jordy Chu Current Living Situation: Spouse current occupational status: employed current occupation: [employer] Other Information That Helps Us Care for You: No Feels Safe at Home: Yes Safety Concerns: Feels Safe At This Time Assistive Devices: Glasses Review of Systems Review of Systems: All systems reviewed & are unremarkable except as noted in HPI & below Physical Exam Constitutional: WD/WN, vitals as above no acute distress and not ill appearing Neck: normal visual inspection and trachea midline Respiratory: normal respiratory effort; no respiratory distress, no labored breathing and no retractions Cardiovascular: Rate/Rhythm: regular rate and regular rhythm Heart Sounds: normal S1, normal S2 and + murmur Gastrointestinal (Abdomen): Inspection/Auscultation: abdomen normal to inspection and + abdominal surgical scar (midline laparotomy scar, right and left mid transverse scars); abdomen not distended Percussion/Palpation: + abdomen tender (mild at right mid abdomen at site of hernia), abdomen soft and + hernia (right and left incisional hernia, reducible); no guarding and abdomen not rigid Skin: no rashes, warm and dry Psychiatric: A+Ox3, euthymic affect Results & Data ([facility]) Vital Signs (Past 12 Hours) Vital Signs Temp Pulse Resp BP BP Pulse Ox O2 Del Method 04/06/22 08:07 36.6 C 75 18 129/71 94 Room Air 04/06/22 04:33 36.8 C 66 18 139/66 96 Room Air 04/05/22 23:34 37 C 74 16 119/64 94 Room Air Laboratory Results 04/06/22 04/06/22 Range/Units 09:57 09:57 WBC 6.05 (4.8-10.8) K/ul RBC 3.83 L (3.93-5.22) M/uL Hgb 12.3 (12.0-16.0) g/dl Hct 35.7 (34.1-44.9) % MCV 93.2 (80.0-100.0) fL MCH 32.1 (25.0-34.0) pg MCHC 34.5 (32.0-36.0) g/dL RDW Std Deviation 46.8 H (36.4-46.3) fL RDW Coeff of Yosef 13.8 (11.5-14.5) % Plt Count 217 (130-400) K/uL MPV 9.6 (9.4-12.3) fL Sodium 140 (136-145) mmol/L Potassium 3.0 L D (3.5-5.1) mmol/L Chloride 109 H (98-107) mmol/L Carbon Dioxide 28 (21-32) mmol/L Anion Gap 3 (3-11) BUN 10 (6-23) mg/dl Creatinine 0.75 (0.6-1.2) mg/dl Est Cr Clr Drug Dosing 56.4 ml/min Est GFR ( Amer) 96.9 ml/min Est GFR (Non-Af Amer) 83.6 ml/min BUN/Creatinine Ratio 13.3 (10-20) Glucose 107 H (70-99(Fasting)) mg/dl Calcium 8.7 (8.5-10.1) mg/dl Magnesium 1.8 (1.7-2.4) mg/dl Diagnostic Findings ABDOMEN AND PELVIS CT WITHOUT CONTRAST CT DOSE: 252.79 mGy.cm HISTORY: Generalized abdominal pain. Assess for bowel obstruction. TECHNIQUE: Multiaxial CT images of the abdomen and pelvis were performed without contrast. A dose lowering technique was utilized adhering to the principles of ALARA. COMPARISON STUDY: Abdomen and pelvis CT 03/28/2022. FINDINGS: A few bibasilar linear densities suggesting scarring or subsegmental atelectasis. No pneumoperitoneum. No pneumatosis. 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 Old mild superior endplate compression deformity at T12. Mild diffuse body wall edema. Moderate size fat-containing ventral hernia within the left anterior abdominal wall best seen on image 199. The hernia sac measures 6.2 cm. There is also small right anterior abdominal wall ventral hernia. These do not contain small bowel loops at this time. The unenhanced liver, spleen, adrenal glands, and pancreas unremarkable. No hydronephrosis. Punctate cortical calcifications are again noted within the kidneys. No definite renal or ureteral calculi. Stable hypodense lesions within the kidneys. These are incompletely characterized on this noncontrast study but favor cysts. Moderate calcified plaque within the ectatic abdominal aorta measuring up to 2.4 cm in diameter. Severe calcified plaque at the takeoff of the left common iliac artery and right common iliac artery. No pelvic free fluid. The bladder is unremarkable. The uterus and bilateral adnexa are within normal limits. Mild to moderate dilatation of multiple loops of large and small bowel. These bowel loops are also fluid- filled. The stomach is mildly distended and filled with fluid. This has slightly improved. No clear transition point at this time to suggest a bowel obstruction. There is focal twisting of the distal transverse colon on images 146 through 160. However, the bowel distal to this area is distended and fluid-filled. Therefore, this does not appear to represent an internal hernia/volvulus. Postoperative changes consistent with a prior right hemicolectomy. IMPRESSION: 1. Multiple dilated fluid-filled loops of large and small bowel seen throughout the abdomen. The stomach is also mildly distended and filled with fluid. No clear transition point at this time to suggest a bowel obstruction. Therefore, this favors an ileus or gastroenteritis. Follow-up can be performed if the patient's symptoms persist to exclude the possibility of a developing bowel obstruction. 2. Fat-containing ventral hernias again noted. 3. Postoperative changes as described above. XR KUB/Abdomen 1 view CLINICAL HISTORY: Follow up ileus versus gastroenteritis. COMPARISON STUDY: 04/05/2022 TECHNIQUE: Single view of the abdomen. FINDINGS: Compared to the previous examination, the bowel gas pattern is within normal limits without evidence for dilatation or obstruction. No definite evidence for ileus or gastroenteritis is identified. There is no evidence for organomegaly or gross intra-abdominal mass. No abnormal calcifications are seen along the course of the urinary tracts bilaterally. No acute osseous pathology. IMPRESSION: 1. No acute intra-abdominal abnormality.
[2022-04-06] MEDS ORDERED: POTASSIUM CHLORIDE 10 MEQ TABCR PO STA (12:05)
[2022-04-06] MEDS ORDERED: POTASSIUM CHLORIDE CRTAB 20 MEQ TABCR PO STA ×2 (12:05→18:22)
--- NOTE | 2022-04-06 13:07 | Gastrointestinal Consultation ---
Date of Consultation April 06, 2022 Assessment & Plan (1) Nausea: Plan Nausea of two weeks duration, began at the time of partial SBO but did not resolve as the SBO resolved. Differentials considered include: esophagitis, gastritis, gastroparesis, ulcer dx. She also had an episode of rectal bleeding yesterday but Hb remains normal. Will arrange OP EGD, Colonoscopy and gastric emptying study then OP GI office visit to f/u after these tests. If able to tolerate a low fiber diet for supper tonight, then no GI contraindication to discharge. Supervising Physician Co-Signing Physician Notes I saw and evaluated the patient. We were asked to see her with regard to recurrent nausea. Of note the patient does have a history of a small bowel obstruction however her most recent imaging seems to indicate constipation. Of note the patient has been seen in the past by our office and is due for follow- up endoscopies in the near future. The patient appears to be feeling better today Physical examination No obvious distress, patient is working from her computer and seems to be doing very well Impression: Patient with a long history of nausea, we will make arrangements for upper endoscopy and colonoscopy given the intermittent medic easier over the past few weeks. I would suggest the patient use a bowel regimen to include Amitiza 8 mcg twice daily. She will be followed up in the office after the endoscopic examinations have been completed. Please call with any questions or concerns GI to sign off History of Present Illness Reason for Consultation: Chronic nausea/vomiting/diarrhea Requesting Physician: Dr. Gilliam Attending Physician: Floyd Gilliam MD History of Present Illness Ms. Patel is a 67 yr old female pt of Dr. Rosales with a hx of COPD, HTN, Hypo thyroid, Bipolar, SBO S/P resection w ileostomy and eventual reversal (2017). She is known to our group as she has been seen previously in consult but doesn't regularly f/u in GI. Her most recent OP appt was in 2019 for chronic diarrhea at that time tx with Imodium, Questran and fiber. She was admitted for a partial SBO last week which was tx conservatively. She returned to [facility] ED late on 04/04 for being lightheaded and was admitted for hypotension. BP meds are being adjusted. On return to [facility] on 04/04, CT w/o evidence of SBO. GI is consulted for nausea/vomiting/diarrhea. Her diarrhea is chronic, unchanged since undergoing small bowel resection in 2018. She feels that she is managing it well with Imodium. Nausea has been present fairly consistently for the past 2 wks with an episode of vomiting about once every 2 days. She has not had hematemesis. She did have one episode of blood on the toilet paper and in the toilet bowel with a loose BM yesterday but typically hasn't had bloody BMs. Hb has remained normal. Regarding her nausea, it is present every day, for about 2 wks. Her nausea is present every morning, and is usually resolves with ondansetron. . However, she has had vomiting about every other day. No hematemesis. On one occasion a week ago, she vomited food that she had eaten 2 wks prior, but was admitted for a partial SBO around that time. She has lost about 13 lbs in the past two weeks. This week, she has not had any abdominal pain or distention. She is currently sitting up in bed, working remotely. Allergies Allergy/AdvReac Type Severity Reaction Status Date / Time No Known Allergies Allergy Verified 04/04/22 20:28 Home Medications Medication Instructions Recorded Confirmed Type gabapentin 600 mg tablet 600 mg PO HS 06/08/18 04/04/22 History levothyroxine 150 mcg tablet 150 mcg PO DAILY 06/08/18 04/04/22 History risperidone 2 mg tablet 2 mg PO HS 06/08/18 04/04/22 History sucralfate 1 gram tablet (Carafate) 1 g PO ACHS 06/08/18 04/04/22 History venlafaxine 150 mg 150 mg PO HS 06/08/18 04/04/22 History capsule,extended release 24 hr (Effexor XR) venlafaxine 75 mg capsule,extended 75 mg PO QAM 06/08/18 04/04/22 History release 24 hr (Effexor XR) albuterol sulfate 90 mcg/actuation 1 inh inhalation QID PRN sob 03/28/22 04/04/22 History aerosol inhaler amlodipine 2.5 mg tablet 2.5 mg PO DAILY 03/28/22 04/04/22 History cyanocobalamin (vitamin B-12) 1,000 mcg PO DAILY 03/28/22 04/04/22 History 1,000 mcg tablet diphenoxylate-atropine 2.5 2.5 mg PO Q6H 03/28/22 04/04/22 History mg-0.025 mg tablet (Lomotil) famotidine 20 mg tablet 20 mg PO BID 03/28/22 04/04/22 History fluticasone furoate 200 1 inh inhalation DAILY 03/28/22 04/04/22 History mcg-vilanterol 25 mcg/dose inhalation powder (Breo Ellipta) furosemide 40 mg tablet 40 mg PO DAILY 03/28/22 04/04/22 History lisinopril 40 mg tablet 40 mg PO DAILY 03/28/22 04/04/22 History loperamide 2 mg tablet 2 mg PO QID 03/28/22 04/04/22 History pantoprazole 40 mg tablet,delayed 80 mg PO DAILY 03/28/22 04/04/22 History release trospium 60 mg capsule,extended 60 mg PO DAILY 03/28/22 04/04/22 History release 24 hr varenicline 1 mg tablet 1 mg PO BID 03/28/22 04/04/22 History folic acid 1 mg tablet 1 mg PO QAM 30 days #30 tabs 03/31/22 04/04/22 Rx thiamine HCl (vitamin B1) 100 mg 100 mg PO QAM 30 days #30 tabs 03/31/22 04/04/22 Rx tablet Patient History Medical History (Updated 04/06/22 @ 10:58 by Purnima Maurer PA-C) Asthma Asthma Bipolar depression Chronic distal aortic occlusion Depression GERD (gastroesophageal reflux disease) Herpes labialis Hydrocephalus Hypertension Hypothyroid Hypothyroidism Iliac artery occlusion, left Ischemic necrosis of small bowel Peritonitis (acute) generalized Protein calorie malnutrition Small bowel obstruction Tobacco abuse disorder Vasculopathy Surgical History H/O exploratory laparotomy H/O tubal ligation History of bowel resection History of cholecystectomy History of tubal ligation Hx laparoscopic cholecystectomy Status post small bowel resection 06/06/18 Dr. Rosario exp lap with SBO, ileostomy mucous fistula Family History Mother Uterine cancer Father Emphysema of lung Social History (Updated 03/28/22 @ 20:59 by ESTELITA McdonaldC) Smoking Status: Current every day smoker Years Smoked: 40; Cigarettes Per Day: 2; Second Hand Exposure: No; Do You Dip or Chew Tobacco: No; Tobacco Cessation Education Requested by Patient: No Hx Alcohol Use: Yes Alcohol type: hard liquor Alcohol Intake Frequency Comment: 3-4 1 ounce shots daily Hx Substance Use: Yes Non-Prescribed Medications: Marijuana Non-Prescribed Medications Comment: Daily Last Used Substance: Unknown Preferred Language: Wallisian Communication Ability: Effective Visual Impairment: No Limitations Epic Anesthesia Analyst Required: No Beliefs That Will Affect Care: None marital status: marital status details: Jordy Chu Current Living Situation: Spouse current occupational status: employed current occupation: [employer] Other Information That Helps Us Care for You: No Feels Safe at Home: Yes Safety Concerns: Feels Safe At This Time Assistive Devices: Glasses Review of Systems Review of Systems: ROS: Gen: Denies weakness, fevers, weight loss Eyes: No eye redness, or pain, no recent vision changes Resp: No SOB, no cough Cardio: No palpitations/irregular beats, no chest pain GI: currently, no abdominal pain, no nausea/vomiting : Denies pain on urination Skin: No jaundice, itching or new rashes Physical Exam Constitutional: WD/WN, vitals as above Eyes: PERRL, conjunctivae normal, anicteric sclerae Neck: trachea midline, no thyromegaly Respiratory: normal respiratory effort, lungs clear to auscultation Cardiovascular: RRR, no murmur, no edema Gastrointestinal (Abdomen): normal bowel sounds, soft, nontender, no hepatosplenomegaly Skin: no rashes, warm and dry Neurologic: PERRL, EOMI, accommodation nl, no face palsy, no dysarthria Psychiatric: A+Ox3, euthymic affect Lymphatic: no cervical or axillary lymphadenopathy Results & Data ([facility]) Vital Signs (Past 12 Hours) Vital Signs Temp Pulse Pulse Resp BP BP Pulse Ox 04/06/22 11:59 36.5 C 72 17 138/76 96 04/06/22 08:00 84 04/06/22 08:07 36.6 C 75 18 129/71 94 04/06/22 04:33 36.8 C 66 18 139/66 96 O2 Del Method 04/06/22 11:59 Room Air 04/06/22 08:00 07/15/22 08:07 Room Air 04/06/22 04:33 Room Air Laboratory Results WBC 6, Hb 12.3, Hct 35.7, Plts 217, Na 140, K 3.0, Cl 109, CO2 28, BUN 10, Cr 0.75, glucose 107. Diagnostic Findings CTAP 04/04/22: 1. Multiple dilated fluid-filled loops of large and small bowel seen throughout the abdomen. The stomach is also mildly distended and filled with fluid. No clear transition point at this time to suggest a bowel obstruction. Therefore, this favors an ileus or gastroenteritis. Follow-up can be performed if the patient's symptoms persist to exclude the possibility of a developing bowel obstruction. 2. Fat-containing ventral hernias again noted. 3. Postoperative changes as described above. CTAP non contrast 03/28/22: 1. Gross distention of the stomach with liquid and food stuff. There is also moderate dilatation of the mid to distal small bowel loops with findings characteristic of partial small bowel obstruction. Etiology is not definitely seen but is suspicious for adhesions with previous partial small bowel resection noted. 2. There are 2 ventral abdominal wall hernias, one in the left and one on the right. The small bowel loops extend into the hernia sacs with no definite obstruction or incarceration. These are more upstream from the dilated loops of small bowel. 3. Evidence for mild to moderate fecal stasis within the colon.
--- NOTE | 2022-04-06 19:38 | Discharge Summary ---
Date of Service April 06, 2022 Admission HPI Per Admitting Provider CHIEF COMPLAINT: Hypotension, ileus. HISTORY OF PRESENT ILLNESS: This is a 67-year-old female with past medical history significant for COPD, hypertension, hypothyroidism, bipolar disorder, history of ischemic small bowel obstruction, status post small bowel resection with ileostomy and eventual reversal, chronic diarrhea, chronic nausea and vomiting. Recently was in the hospital for hypotension and also partial small bowel obstruction, managed conservatively and improved and discharged, comes back because of hypotension. The patient says at home, her blood pressure is running low, feeling dizzy, is not getting better, so she came in here and she says she had vomiting couple of times yesterday and today nauseous, but she was able to eat, no abdominal pain, moved her bowels today. Denies any blood in the stools. Normal bladder movements. No swelling in the legs. No chest pain, no shortness of breath. Currently, no cough, no fevers, no headache, no blurred visions, no sore throat. In the ER, her blood pressure was low; when she came in, her SBP in 80s. She got fluids. Currently with fluids, BP is 95/43. CT scan showing possible ileus. Creatinine is 1.5, which was 0.6 last week. Admission Exam Per Admitting Provider GENERAL: The patient is of moderate build, not in acute distress. VITAL SIGNS: Temperature 36.7, pulse 71, respiratory rate 16, blood pressure 99/43, oxygen 95% on room air. HEENT: Pupils equal, round and reactive to light. Oral mucosa moist. NECK: No JVD, no neck masses. CARDIOVASCULAR: S1 and S2 heard. Regular rate and rhythm. No murmur, no gallop. RESPIRATORY SYSTEM: Normal AP diameter. No accessory muscle use. No wheezing, no crackles. ABDOMEN: Soft. Bowel sounds sluggish, nontender, no distention. CENTRAL NERVOUS SYSTEM: Alert and oriented. Speech is clear. No facial droop. Obeys simple commands. Moves extremities. EXTREMITIES: No edema, no erythema. Principal Diagnosis Acute hypotension: Vomiting/Nausea Acute kidney Injury: History of diastolic congestive heart failure: Hypertension History of alcohol abuse Bipolar disorder Discharge Exam General- No acute distress Head- atraumatic Eyes- PERRL, EOMI, ENT- oropharynx clear Neck- supple, no JVD Lungs- clear to auscultation Heart- regular rhythm; no murmur Abdomen- normal bowel sounds, soft, nontender Extremities- no calf tenderness Neuro- alert, oriented x 3; PERRL, EOMI; no facial palsy; no dysarthria Skin- warm & dry Discharge Data Allergies Allergy/AdvReac Type Severity Reaction Status Date / Time No Known Allergies Allergy Verified 04/04/22 20:28 Consultations 04/04/22 20:51 ED Decision to Admit Stat 04/05/22 08:00 Consult General Surgery Routine 04/06/22 12:06 Consult Gastroenterology Routine Ordered Studies 04/04/22 17:58 CT abd pelvis wo con Stat XR KUB/Abdomen 1 view CLINICAL HISTORY: Follow up ileus versus gastroenteritis. COMPARISON STUDY: 04/05/2022 TECHNIQUE: Single view of the abdomen. FINDINGS: Compared to the previous examination, the bowel gas pattern is within normal limits without evidence for dilatation or obstruction. No definite evidence for ileus or gastroenteritis is identified. There is no evidence for organomegaly or gross intra-abdominal mass. No abnormal calcifications are seen along the course of the urinary tracts bilaterally. No acute osseous pathology. IMPRESSION: 1. No acute intra-abdominal abnormality. ACT 112: Negative or not required by law. Electronically signed by: Chester Torres M.D. 04/06/2022 8:57 AM Dictated:04/06/22 0856 Transcribed: 04/06/22855 KUB HISTORY: Abdominal distention. Ileus. Follow-up. COMPARISON: KUB 03/29/2022. FINDINGS: Mildly dilated gas-filled loops of large and small bowel are again noted. This is similar to the prior study. There are suture material within the right side of the abdomen. No renal calculi. No ureteral calculi. No pneumoperitoneum or pneumatosis. IMPRESSION: No change in the mildly dilated gas-filled loops of large and small bowel seen throughout the abdomen. This could represent an ileus versus gastroenteritis. ACT 112: Negative or not required by law. Electronically signed by: Willy Almeida M.D. 04/05/2022 9:13 AM Dictated:04/05/22911 Transcribed: 04/05/22911 XR chest 1V portable HISTORY: hypotension COMPARISON: Chest 04/04/2022. FINDINGS: The lungs are clear. Cardiac silhouette is normal in size. No pleural effusions. No pneumothorax. IMPRESSION: No acute process. ACT 112: Negative or not required by law. Electronically signed by: Willy Almeida M.D. 04/04/2022 6:44 PM Dictated:04/04/221841 Transcribed: 04/04/221841 ABDOMEN AND PELVIS CT WITHOUT CONTRAST CT DOSE: 252.79 mGy.cm HISTORY: Generalized abdominal pain. Assess for bowel obstruction. TECHNIQUE: Multiaxial CT images of the abdomen and pelvis were performed without contrast. A dose lowering technique was utilized adhering to the principles of ALARA. COMPARISON STUDY: Abdomen and pelvis CT 03/28/2022. FINDINGS: A few bibasilar linear densities suggesting scarring or subsegmental atelectasis. No pneumoperitoneum. No pneumatosis. 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 Old mild superior endplate compression deformity at T12. Mild diffuse body wall edema. Moderate size fat-containing ventral hernia within the left anterior abdominal wall best seen on image 199. The hernia sac measures 6.2 cm. There is also small right anterior abdominal wall ventral hernia. These do not contain small bowel loops at this time. The unenhanced liver, spleen, adrenal glands, and pancreas unremarkable. No hydronephrosis. Punctate cortical calcifications are again noted within the kidneys. No definite renal or ureteral calculi. Stable hypodense lesions within the kidneys. These are incompletely characterized on this noncontrast study but favor cysts. Moderate calcified plaque within the ectatic abdominal aorta measuring up to 2.4 cm in diameter. Severe calcified plaque at the takeoff of the left common iliac artery and right common iliac artery. No pelvic free fluid. The bladder is unremarkable. The uterus and bilateral adnexa are within normal limits. Mild to moderate dilatation of multiple loops of large and small bowel. These bowel loops are also fluid- filled. The stomach is mildly distended and filled with fluid. This has slightly improved. No clear transition point at this time to suggest a bowel obstruction. There is focal twisting of the distal transverse colon on images 146 through 160. However, the bowel distal to this area is distended and fluid-filled. Therefore, this does not appear to represent an internal hernia/volvulus. Postoperative changes consistent with a prior right hemicolectomy. IMPRESSION: 1. Multiple dilated fluid-filled loops of large and small bowel seen throughout the abdomen. The stomach is also mildly distended and filled with fluid. No clear transition point at this time to suggest a bowel obstruction. Therefore, this favors an ileus or gastroenteritis. Follow-up can be performed if the patient's symptoms persist to exclude the possibility of a developing bowel obstruction. 2. Fat-containing ventral hernias again noted. 3. Postoperative changes as described above. ACT 112: Negative or not required by law. Electronically signed by: Willy Almeida M.D. 04/04/2022 6:36 PM Dictated:04/04/221824 Transcribed: 04/04/221824 XR chest 1V portable HISTORY: hypotension COMPARISON: Chest 03/28/2022. FINDINGS: Slightly rotated study. No pneumothorax. No pleural fusions. The lungs are clear. The heart is normal in size. There are calcifications within the aortic knob, unchanged. IMPRESSION: No acute process. ACT 112: Negative or not required by law. Electronically signed by: Willy Almeida M.D. 04/04/2022 4:45 PM Dictated:04/04/22 1645 Transcribed: 04/04/221644 Hospital Course (1) Acute hypotension: Presented on admission with low BP mostly due to poor oral intake/ vomiting/ and antihypertensive meds BP on admission 83/45 Received IVF in the ER BP improved Continue to hold Lisinopril, amlodipine and Lasix while in the hospital Will resume lasix on discharge Continue monitor BP closely Vomiting/Nausea Pt had on episode of Hematochezia CT abdomen/pelvis showed multiple dilated fluid-filled loops of large and small bowel seen throughout the abdomen. The stomach is also mildly distended and filled with fluid. KUB yesterday showed no change in the mildly dilated gas-filled loops of large and small bowel seen throughout the abdomen. KUB today showed no acute intra-abdominal abnormality. Surgery on board- no surgical intervention required Gastro on board- follow up outpatient in 1 month to arrange for EGD, Colonoscopy and gastric emptying Tolerated low fiber diet Ok from GI standpoint to discharge home Acute kidney Injury: Mostly due to hypotension, vomiting and poor oral intake Creatinine on admission 1.5, baseline was 0.6. Creatinine 0.7 today Will resume Lasix on on discharge Check BMP in 1 week History of diastolic congestive heart failure: No sign of fluid overload while on IVF Lasix resume on discharge Hypokalemia K 3 today K replaced Continue K 10meq supplement on discharge Check BMP within 1 week Hypertension Hypotension on admission Continue to hold antihypertensive meds Lisinopril and amlodipine Will add BP med slowly Continue monitor BP History of alcohol abuse Marijuana abuse Counseling on alcohol and marijuana cessation Continue daily thiamine and folic acid. Bipolar disorder Continue with risperidone. Deep venous thrombosis prophylaxis Heparin subcutaneously on hold due to bright red stool Total Time Total Time Spent Total Time Spent (In Minutes): 35 minutes Discharge Plan Discharge Items Patient Disposition: Home - Self-Care Reason For Visit: HYPOTENSION Discharge Diagnosis: Acute hypotension: Vomiting/Nausea Acute kidney Injury: History of diastolic congestive heart failure: Hypertension History of alcohol abuse Bipolar disorder Activity: Resume your previous activity Non-emergency contact: Primary Care Provider and Senior Staff Psychologist Call non-emergency contact if: you have any medication questions and your symptoms worsen Follow-up/Referrals: Jacek Rosales MD [Primary Care Provider] - (Date & Time 04/12/2022 11:00 AM Provider Jacek Rosales III, MD Department [facility] ) Diet: Heart Healthy and Low Fiber Addtl Attending Provider Instructions: Follow up with your primary care provider Dr. Rosales in 1 week (please call to schedule for the appointment) Follow up with gastroenterology to arrange for outpatient EGD, Colonoscopy and gastric emptying study Check BMP within 1 week to monitor your electrolytes and renal function Continue monitor your blood pressure and bring your blood pressure at your next appointment with your provider Continue to hold Lisinopril and Amlodipine. Your provider will advise you when to resume them once your blood pressure starts to elevate. Fall precaution Seek medical attention if your symptoms reoccur. Pending Studies at Discharge: No Stand-Alone Forms: [facility], Smoking Cessation Medications and DC Order Prescriptions: New potassium chloride 10 mEq capsule, extended release 10 meq PO DAILY Qty: 30 0RF Continued sucralfate [Carafate] 1 gram Tablet 1 g PO ACHS gabapentin 600 mg Tablet 600 mg PO HS levothyroxine 150 mcg Tablet 150 mcg PO DAILY risperidone 2 mg Tablet 2 mg PO HS venlafaxine [Effexor XR] 150 mg Capsule,Extended Release 24hr 150 mg PO HS venlafaxine [Effexor XR] 75 mg Capsule,Extended Release 24hr 75 mg PO QAM furosemide 40 mg tablet 40 mg PO DAILY loperamide 2 mg Tablet 2 mg PO QID cyanocobalamin (vitamin B-12) 1,000 mcg Tablet 1,000 mcg PO DAILY famotidine 20 mg Tablet 20 mg PO BID pantoprazole 40 mg tablet,delayed release (DR/EC) 80 mg PO DAILY albuterol sulfate 90 mcg/actuation Hfa Aerosol Inhaler 1 inh INHALATION QID PRN (Reason: sob) varenicline 1 mg tablet 1 mg PO BID trospium 60 mg capsule,extended release 24hr 60 mg PO DAILY fluticasone furoate-vilanterol [Breo Ellipta] 200-25 mcg/dose blister with device 1 inh INHALATION DAILY diphenoxylate-atropine [Lomotil] 2.5-0.025 mg tablet 2.5 mg PO Q6H thiamine HCl (vitamin B1) 100 mg Tablet 100 mg PO QAM 30 Days Qty: 30 0RF folic acid 1 mg Tablet 1 mg PO QAM 30 Days Qty: 30 0RF Discontinued amlodipine 2.5 mg tablet 2.5 mg PO DAILY lisinopril 40 mg tablet 40 mg PO DAILY Discharge Orders: Discharge Order (Routine); Ordered 04/06/22 Ordered By: Floyd Gilliam Admission Data Admit Date/Time: 04/04/22 22:54 Attending Provider: Floyd Gilliam Admit Provider: Rolo Clark Primary Care Provider: Jacek Rosales Other Providers: Rolo Clark ; Angélica Faulkner ; Owen Rainey Other Interventions: Discharge Summary Assessment (RN) Last Done: 04/06/22 18:39
== END 2022-04-06 19:00 | disposition home or self-care (01) | DRG 315 ==
LOC: ED 16:08 → 2N 22:54

== ENCOUNTER 2022-05-08 13:32 | Observation (INO) ==
--- NOTE | 2022-05-08 13:44 | Emergency Department Note ---
Impression & Plan Hypomagnesemia, Acute hypokalemia, Pre-syncope, Acute dehydration, Hypocalcemia ED Provider Note NAME: SHERMAN MARIE AGE: 67 SEX: F : 1955 ARRIVES VIA: Ambulance INFORMANT: Patient, ED PROVIDER(S): Cl Hoffmann MD Chief Complaint: Dizziness, fall HPI: Presents with the above complaints. Patient states that she got up for her desk to walk across the room when she got lightheaded and dizzy her legs gave out and she fell to the floor striking her right knee. The patient denies any head strike or head trauma. No LOC. Patient does not think that she has been eating or drinking as much as she should. The patient does admit to occasional alcohol use but denies tobacco or drugs. Patient denies any current head neck chest back or abdominal pain. The patient did have some mild right knee disco mfort after the fall but states she is relatively asymptomatic. Patient does not take any blood thinning medications. Patient denies any chest pains or shortness of breath. Patient has not had any diarrhea. ROS: See HPI for pertinent positives and negatives. A total of 10 systems were reviewed and otherwise negative. Past medical history: See below Surgical history: See below Social history: See below Physical Exam: GENERAL: NAD, wearing a mask, non-toxic. EYE EXAM: Normal conjunctiva. PERRL, no anisocoria and EOM's grossly intact w/o pain. NECK: Supple, no nuchal rigidity, no adenopathy, non-tender. No signs of meningismus. FROM of the neck with good chin to chest and neck extension. No stridor. LUNGS: Clear to auscultation. Normal chest wall mechanics. HEART: NSR, no MRG. ABDOMEN: Abdomen soft, non-tender, normo-active bowel sounds, no masses, no rebound or guarding. BACK: No CVA TTP. SKIN: No rashes and no bruising. UPPER EXTREMITIES: Upper extremities are grossly normal. LOWER EXTREMITIES: Grossly normal, no edema. 3 by 3 cm abrasion to the right anterior knee with no obvious effusion with good range of motion with flexion extension no obvious deformity or TTP. Neurovascular tact distally. NEURO EXAM: A&O x3, cranial nerves II-XII grossly intact, normal speech, moves all 4 extremities. Differential diagnoses: Course: Patient was seen and evaluated the bedside. Full history physical exam was performed. EKG interpreted by me Normal sinus rhythm, rate of 78, normal intervals, normal axis, no ST elevations. Imaging Studies: See Below Cardiac monitoring: An order was placed for continuous cardiac monitoring. The monitor shows a rate of 82 with sinus rhythm. MDM: Patient was seen due to concern for possible positional lightheadedness with presyncopal symptoms but without true syncope. Blood work was obtained and the patient was given something to drink along with IV fluids. Patient's knee appears grossly unremarkable may have a slight abrasion to the anterior knee but no obvious deformity and she is neurovascular intact. Patient was offered x-ray but declined. Patient has a normal white count H&H and platelet count. The patient's kidney function does show prerenal azotemia but did receive IV fluids. Patient does have significant electrolyte abnormalities including a sodium of 134 potassium of 2.5 calcium 7.8 magnesium 1.5. Patient was ordered 2 g magnesium and a gram of calcium as well as 20 micro equivalents of potassium chloride IV. Patient is agreeable to staying in hospital. I did speak the on-call hospitalist Jaida Hassan PA-C and the patient was admitted by Dr. Guzman. Past Med/Surg History Medical History Anxiety Asthma Bipolar depression Bipolar disorder Chronic distal aortic occlusion Chronic obstructive pulmonary disease controlled with inhalers Depression GERD (gastroesophageal reflux disease) Herpes labialis per record Hx of basal cell carcinoma Hypertension hx -- recently had blood pressure medication on hold due to hypotension. Hypothyroidism Iliac artery occlusion, left pt unaware Peritonitis (acute) generalized pt unaware Small bowel obstruction (~2018) treated at [facility] with Dr Rosario Stress incontinence Vasculopathy Surgical History H/O exploratory laparotomy History of bowel resection History of cholecystectomy History of colonoscopy History of esophagogastroduodenoscopy (EGD) History of tonsillectomy History of tubal ligation Hx of basal cell carcinoma excision Status post small bowel resection 06/06/18 Dr. Rosario exp lap with SBO, ileostomy mucous fistula Family History Mother Uterine cancer Father Emphysema of lung Other No family history of adverse response to anesthesia Social History Smoking Status: Former smoker Years Smoked: 40; Cigarettes Per Day: 1 ppd x 50 years; Smoking End Date: quit recently, using chantix; Second Hand Exposure: No; Hx Alcohol Use: Yes Alcohol type: hard liquor Alcohol Intake Frequency Comment: 3-4 shots of tequila 4x/week Hx Substance Use: Yes (smokes marijuana daily) Non-Prescribed Medications: Marijuana Non-Prescribed Medications Comment: Daily Last Used Substance: Hours (ago) Last Used Substance Other:: 04/19/22 AM (advised to avoid 3 days prior to procedure) Preferred Language: Lao Communication Ability: Effective Visual Impairment: No Limitations Solid Waste Engineer Required: No Beliefs That Will Affect Care: None marital status: marital status details: Jordy Chu Current Living Situation: Spouse current occupational status: employed current occupation: [employer] Feels Safe at Home: Yes Assistive Devices: Denture - Upper, Denture - Lower and Glasses Allergies Allergies Allergy/AdvReac Type Severity Reaction Status Date / Time No Known Allergies Allergy Verified 05/08/22 14:19 Home Meds Home Medications Medication Instructions Recorded Confirmed gabapentin 600 mg tablet 600 mg PO HS 06/08/18 05/08/22 levothyroxine 150 mcg tablet 150 mcg PO 2XWK 06/08/18 05/08/22 risperidone 2 mg tablet 2 mg PO HS 06/08/18 05/08/22 sucralfate 1 gram tablet (Carafate) 1 g PO ACHS 06/08/18 05/08/22 venlafaxine 150 mg 150 mg PO HS 06/08/18 05/08/22 capsule,extended release 24 hr (Effexor XR) venlafaxine 75 mg capsule,extended 75 mg PO QAM 06/08/18 05/08/22 release 24 hr (Effexor XR) albuterol sulfate 90 mcg/actuation 1 inh inhalation QID PRN sob 03/28/22 05/08/22 aerosol inhaler cyanocobalamin (vitamin B-12) 1,000 mcg PO QAM 03/28/22 05/08/22 1,000 mcg tablet diphenoxylate-atropine 2.5 2.5 mg PO Q6H PRN Diarrhea 03/28/22 05/08/22 mg-0.025 mg tablet (Lomotil) famotidine 20 mg tablet 20 mg PO BID 03/28/22 05/08/22 fluticasone furoate 200 1 inh inhalation QAM 03/28/22 05/08/22 mcg-vilanterol 25 mcg/dose inhalation powder (Breo Ellipta) furosemide 40 mg tablet 40 mg PO QAM 03/28/22 05/08/22 loperamide 2 mg tablet 2 mg PO QID 03/28/22 05/08/22 pantoprazole 40 mg tablet,delayed 80 mg PO QAM 03/28/22 05/08/22 release trospium 60 mg capsule,extended 60 mg PO QAM 03/28/22 05/08/22 release 24 hr varenicline 1 mg tablet 1 mg PO BID 03/28/22 05/08/22 levothyroxine 150 mcg tablet 225 mcg PO 5XWK 04/19/22 05/08/22 potassium chloride 10 mEq 10 meq PO QAM 04/19/22 05/08/22 capsule,extended release Results & Data (ED) Vital Signs Vital Signs - 24 hr 05/08/22 13:40 05/08/22 13:40 05/08/22 14:39 Temperature 36.6 C Temperature Source Oral Pulse Rate 86 89 Pulse Rate [Apical] 86 Pulse Rhythm Regular Pulse Rhythm [Apical] Regular Pulse Strength Normal Pulse Strength [Apical] Normal Respiratory Rate 18 18 21 Respiratory Effort / Characteristics Non-Labored Non-Labored Respiratory Depth Normal Normal Respiratory Pattern Regular Regular Blood Pressure 134/83 Blood Pressure [Right Arm] 134/83 Blood Pressure Mean 100 Blood Pressure Mean [Right Arm] 100 Pulse Oximetry 96 98 98 Oxygen Delivery Method Room Air Room Air Sepsis Recent Fever Within 48 Hours No Sepsis New/Unexplained Change in Mental Status N/A Sepsis Action Taken by Nursing No Action Required 05/08/22 16:57 Temperature Temperature Source Pulse Rate Pulse Rate [Apical] 78 Pulse Rhythm Pulse Rhythm [Apical] Pulse Strength Pulse Strength [Apical] Respiratory Rate 21 Respiratory Effort / Characteristics Non-Labored Respiratory Depth Normal Respiratory Pattern Regular Blood Pressure Blood Pressure [Right Arm] 121/81 Blood Pressure Mean Blood Pressure Mean [Right Arm] 94 Pulse Oximetry 98 Oxygen Delivery Method Sepsis Recent Fever Within 48 Hours Sepsis New/Unexplained Change in Mental Status Sepsis Action Taken by Snf Medications Current Medication List: was personally reviewed by me Laboratory Data Attestation: I reviewed the patient's lab results. Result diagrams: 05/08/22 15:39 05/08/22 15:39 Lab Results 05/08/22 05/08/22 05/08/22 Range/Units 15:39 15:39 15:39 WBC 6.76 (4.8-10.8) K/ul RBC 4.11 (3.93-5.22) M/uL Hgb 13.3 (12.0-16.0) g/dl Hct 36.7 (34.1-44.9) % MCV 89.3 (80.0-100.0) fL MCH 32.4 (25.0-34.0) pg MCHC 36.2 H (32.0-36.0) g/dL RDW Std Deviation 43.8 (36.4-46.3) fL RDW Coeff of Yosef 13.3 (11.5-14.5) % Plt Count 238 (130-400) K/uL MPV 9.5 (9.4-12.3) fL Immature Gran % (Auto) 0.4 % Neut % (Auto) 57.8 % Lymph % (Auto) 32.0 % Bureau % (Auto) 8.6 % Eos % (Auto) 0.6 % Baso % (Auto) 0.6 % Neut # (Auto) 3.91 (1.4-6.5) K/uL Lymph # (Auto) 2.16 (1.2-3.4) K/uL Bureau # (Auto) 0.58 (0.24-0.82) K/uL Eos # (Auto) 0.04 (0-0.50) K/uL Baso # (Auto) 0.04 (0-0.2) K/uL Immature Gran # (Auto) 0.03 H (0.00-0.02) K/uL Sodium 134 L (136-145) mmol/L Potassium 2.5 L* (3.5-5.1) mmol/L Chloride 94 L (98-107) mmol/L Carbon Dioxide 33 H (21-32) mmol/L Anion Gap 7 (3-11) BUN 17 (6-23) mg/dl Creatinine 0.68 (0.6-1.2) mg/dl Est Cr Clr Drug Dosing 62.2 ml/min Est GFR ( Amer) 106.4 ml/min Est GFR (Non-Af Amer) 91.8 ml/min BUN/Creatinine Ratio 25.0 H (10-20) Glucose 82 (70-99(Fasting)) mg/dl Calcium 7.8 L (8.5-10.1) mg/dl Magnesium 0.5 L* (1.7-2.4) mg/dl Total Bilirubin 0.9 (0.2-1.0) mg/dl AST 13 (13-39) U/L ALT 11 (7-52) U/L Alkaline Phosphatase 74 (34-104) U/L Total Protein 5.7 L (6.0-8.3) gm/dl Albumin 3.0 L (3.4-5.0) gm/dl Globulin 2.7 (2.5-4.0) gm/dl Albumin/Globulin Ratio 1.1 (0.9-2) TSH 0.427 (0.300-4.500) uIu/ml SARS-CoV-2, RNA, NAAT (NEGATIVE) 05/08/22 Range/Units 17:41 WBC (4.8-10.8) K/ul RBC (3.93-5.22) M/uL Hgb (12.0-16.0) g/dl Hct (34.1-44.9) % MCV (80.0-100.0) fL MCH (25.0-34.0) pg MCHC (32.0-36.0) g/dL RDW Std Deviation (36.4-46.3) fL RDW Coeff of Yosef (11.5-14.5) % Plt Count (130-400) K/uL MPV (9.4-12.3) fL Immature Gran % (Auto) % Neut % (Auto) % Lymph % (Auto) % Bureau % (Auto) % Eos % (Auto) % Baso % (Auto) % Neut # (Auto) (1.4-6.5) K/uL Lymph # (Auto) (1.2-3.4) K/uL Bureau # (Auto) (0.24-0.82) K/uL Eos # (Auto) (0-0.50) K/uL Baso # (Auto) (0-0.2) K/uL Immature Gran # (Auto) (0.00-0.02) K/uL Sodium (136-145) mmol/L Potassium (3.5-5.1) mmol/L Chloride (98-107) mmol/L Carbon Dioxide (21-32) mmol/L Anion Gap (3-11) BUN (6-23) mg/dl Creatinine (0.6-1.2) mg/dl Est Cr Clr Drug Dosing ml/min Est GFR ( Amer) ml/min Est GFR (Non-Af Amer) ml/min BUN/Creatinine Ratio (10-20) Glucose (70-99(Fasting)) mg/dl Calcium (8.5-10.1) mg/dl Magnesium (1.7-2.4) mg/dl Total Bilirubin (0.2-1.0) mg/dl AST (13-39) U/L ALT (7-52) U/L Alkaline Phosphatase (34-104) U/L Total Protein (6.0-8.3) gm/dl Albumin (3.4-5.0) gm/dl Globulin (2.5-4.0) gm/dl Albumin/Globulin Ratio (0.9-2) TSH (0.300-4.500) uIu/ml SARS-CoV-2, RNA, NAAT NEGATIVE (NEGATIVE) Administered Medications Magnesium Sulfate/Dextrose (Magnesium Sulfate / D5w) 1 gm in 100 mls @ 100 mls/hr IV Q1H ELEONORA Stop: 05/08/22 18:47 Last Admin: 05/08/22 17:35 Dose: 100 mls/hr Documented By: CLAY Potassium Chloride (K Jassi / Wtr) 10 meq in 100 mls @ 100 mls/hr IV Q1H ELEONORA; Protocol Stop: 05/08/22 18:59 Last Admin: 05/08/22 18:18 Dose: 100 mls/hr Documented By: Infusion: 05/08/22 18:18 Dose: 0 mls/hr Documented By: Admin: 05/08/22 17:17 Dose: 100 mls/hr Documented By: CLAY Sodium Chloride (Nss 1000ml) 1,000 mls @ 60 mls/hr IV .[id number] ELEONORA Stop: 05/09/22 10:39 Last Admin: 05/08/22 18:10 Dose: 60 mls/hr Documented By: CLAY Discontinued Medications Sodium Chloride (Nss 1000ml) 1,000 mls @ 999 mls/hr IV .[id number] ELEONORA Stop: 05/08/22 15:30 Last Infusion: 05/08/22 17:37 Dose: 0 mls/hr Documented By: Admin: 05/08/22 15:33 Dose: 999 mls/hr Documented By: CLAY Calcium Gluconate () 1,000 mg in 60 mls @ 240 mls/hr IV NOW STA Stop: 05/08/22 17:01 Last Infusion: 05/08/22 17:36 Dose: 0 mls/hr Documented By: Admin: 05/08/22 17:17 Dose: 240 mls/hr Documented By: CLAY Magnesium Oxide (Magnesium Oxide 400 Mg Tab) 400 mg PO NOW STA Stop: 05/08/22 17:53 Last Admin: 05/08/22 18:12 Dose: 400 mg Documented By: CLAY Potassium Chloride (Potassium Chloride Crtab 20 Meq Tabcr) 40 meq PO NOW STA Stop: 05/08/22 17:53 Last Admin: 05/08/22 18:12 Dose: 40 meq Documented By: CLAY Discharge Plan Visit Data Chief Complaint: Fall Stated Complaint: syncope ED Provider: Cl Hoffmann Discharge Problem: Hypomagnesemia, Acute hypokalemia, Pre-syncope, Acute dehydration, Hypocalcemia Forms Stand Alone Forms: [facility] Prescriptions Prescriptions: No Action sucralfate [Carafate] 1 gram Tablet 1 g PO ACHS gabapentin 600 mg Tablet 600 mg PO HS levothyroxine 150 mcg Tablet 150 mcg PO 2XWK risperidone 2 mg Tablet 2 mg PO HS venlafaxine [Effexor XR] 150 mg Capsule,Extended Release 24hr 150 mg PO HS venlafaxine [Effexor XR] 75 mg Capsule,Extended Release 24hr 75 mg PO QAM furosemide 40 mg tablet 40 mg PO QAM loperamide 2 mg Tablet 2 mg PO QID cyanocobalamin (vitamin B-12) 1,000 mcg Tablet 1,000 mcg PO QAM famotidine 20 mg Tablet 20 mg PO BID pantoprazole 40 mg tablet,delayed release (DR/EC) 80 mg PO QAM albuterol sulfate 90 mcg/actuation Hfa Aerosol Inhaler 1 inh INHALATION QID PRN (Reason: sob) varenicline 1 mg tablet 1 mg PO BID trospium 60 mg capsule,extended release 24hr 60 mg PO QAM fluticasone furoate-vilanterol [Breo Ellipta] 200-25 mcg/dose blister with device 1 inh INHALATION QAM diphenoxylate-atropine [Lomotil] 2.5-0.025 mg tablet 2.5 mg PO Q6H PRN (Reason: Diarrhea) potassium chloride 10 mEq capsule, extended release 10 meq PO QAM levothyroxine 150 mcg Tablet 225 mcg PO 5XWK Referrals Referrals: Jacek Rosales MD [Primary Care Provider] -
[2022-05-08] MEDS ORDERED: SODIUM CHLORIDE 0.9% 1000ML 1,000 ML IV SCH ×2 (14:30→18:00)
[2022-05-08 16:09] LABS: Basophils # (auto) 0.04 K/uL (0-0.2); Basophils % (auto) 0.6 %; Eosinophils # (auto) 0.04 K/uL (0-0.50); Eosinophils % (auto) 0.6 %; Hematocrit (blood only) 36.7 % (34.1-44.9); Hemoglobin 13.3 g/dl (12.0-16.0); Immature Granulocytes # (auto) 0.03 K/uL (0.00-0.02); Immature Granulocytes % (auto) 0.4 %; Lymphocytes # (auto) 2.16 K/uL (1.2-3.4); Mean Corpuscular Hemoglobin 32.4 pg (25.0-34.0); Mean Corpuscular Hgb Conc 36.2 g/dL (32.0-36.0); Mean Corpuscular Volume 89.3 fL (80.0-100.0); Mean Platelet Volume 9.5 fL (9.4-12.3); Monocytes # (auto) 0.58 K/uL (0.24-0.82); Monocytes % (auto) 8.6 %; Neutrophils # (auto) 3.91 K/uL (1.4-6.5); Neutrophils % (auto) 57.8 %; Platelet Count 238 K/uL (130-400); RDW Coefficient of Variation 13.3 % (11.5-14.5); RDW Standard Deviation 43.8 fL (36.4-46.3); Red Blood Count 4.11 M/uL (3.93-5.22); White Blood Count 6.76 K/ul (4.8-10.8)
--- NOTE | 2022-05-08 16:26 | Electrocardiogram Report ---
Test Reason : Blood Pressure : / mmHG Vent. Rate : 078 BPM Atrial Rate : 078 BPM P-R Int : 132 ms QRS Dur : 088 ms QT Int : 400 ms P-R-T Axes : 028 -18 059 degrees QTc Int : 456 ms Normal sinus rhythm Poor R wave progression, consider anterior MS vs. lead placement vs. LVH Abnormal ECG When compared with ECG of 04-APR-2022 16:21, Borderline criteria for Inferior infarct are now Present QT has lengthened Confirmed by Jhon Angel ([id number]) on 05/08/2022 4:26:31 PM Referred By: REFERRED SELF Confirmed By:Jhon Angel
[2022-05-08 16:34] LABS: Albumin Globulin Ratio 1.1 (0.9-2); Bilirubin,Total 0.9 mg/dl (0.2-1.0); Calcium 7.8 mg/dl (8.5-10.1); Creatinine Clr Calc Pharmacy 62.2 ml/min; Est GFR (African American) 106.4 ml/min; Est GFR (Non-African American) 91.8 ml/min; Globulin 2.7 gm/dl (2.5-4.0); Magnesium 0.5 mg/dl (1.7-2.4); Potassium 2.5 mmol/L (3.5-5.1); Total Protein 5.7 gm/dl (6.0-8.3)
[2022-05-08] MEDS ORDERED: CALCIUM GLUCONATE 1,000 MG/60 ML BAG IV STA (16:47)
--- NOTE | 2022-05-08 17:04 | History & Physical Report ---
Date of Service May 08, 2022 Assessment & Plan (1) Hypomagnesemia: (2) Hypokalemia: (3) Hydrocephalus: (4) COPD (chronic obstructive pulmonary disease): (5) Hypothyroidism: (6) Bipolar depression: (7) Hypertension: (8) Vasculopathy: (9) Tobacco abuse disorder: Plan This is a 67yo with a PMH of hypertension, bipolar disorder, hypothyroidism, history of ischemic small bowel obstruction s/p small bowel resection with ileostomy and eventual reversal, chronic diarrhea and other medical problems listed below who presents with lightheadedness from home and was found to have hypomagnesemia and hypokalemia. Generalized weakness Fall In setting of significant electrolyte abnormalities, dehydration Lyte repletion, IV fluids Fall precautions, PT/OT evaluation Hypomagnesemia Initial Mag of 0.5 Likely multifactorial including malabsorption in setting of small bowel resection, PPI use, reported chronic diarrhea Given 2g in ED. Will give additional 1g IV and 400mg oral now, repeat lab at 2100 Starting mag oxide 400 mg daily Hypokalemia Initial K 2.5 Mag replacement, given 20 meq in ED Will give additional 40meq IV and 40meq oral now with repeat BMP at 2100 Increase home KCl to 40mg BID starting in AM Hypocalcemia Ca 7.8 but albumin low at 3. Corrected Ca wnl at 8.6. Given 1g calcium gluconate in ED History of small bowel obstruction s/p resection Chronic diarrhea, intermittent nausea and vomiting Follows with GI, has appointment in a few weeks Diastolic CHF Appears clinically dry this evening Gentle IV fluid resuscitation, plan to hold lasix in AM until volume status can be reassessed COPD tobacco abuse Unchanged, per patient. Expiratory wheezing noted on exam Duonebs Q4H PRN for SOB/wheezing Continue home inhalers Alcohol abuse Marijuana abuse Encouraged cessation Awss protocol, prn ativan Daily thiamine and folic acid Bipolar Continue Effexor and risperidone DVT ppx: SQ heparin Code status: FULL PCP: Connie Dispo: Admitted to PCU Patient seen in collaboration with Dr. Guzman. Please see addendum. History of Present Illness Chief Complaint: lightheadedness Primary Care Provider: Jacek Rosales MD This is a 67yo with a PMH of hypertension, bipolar disorder, hypothyroidism, history of ischemic small bowel obstruction s/p small bowel resection with ileostomy and eventual reversal, chronic diarrhea and other medical problems listed below who presents with lightheadedness from home. Patient is at home and got up from desk and was walking across the room when she became lightheaded and her legs gave out. She fell to the floor landing on her knees. Denies any head trauma or loss of consciousness. States she had 4 shots of tequila last night and did not have any water to drink or food to eat today. Has history of small bowel obstruction status post resection with chronic diarrhea and intermittent issues with nausea and vomiting. Endorses vomiting episode yesterday. Denies any abdominal pain. No fever, chills, congestion, headache, chest pain, palpitations, shortness of breath, dysuria or constipation. Taking all medications as prescribed. Due to follow-up with GI later this month as well as establishing with Dr. Wen for cardiology. Allergies Allergy/AdvReac Type Severity Reaction Status Date / Time No Known Allergies Allergy Verified 05/08/22 14:19 Home Medications Medication Instructions Recorded Confirmed Type gabapentin 600 mg tablet 600 mg PO HS 06/08/18 05/08/22 History levothyroxine 150 mcg tablet 150 mcg PO 2XWK 06/08/18 05/08/22 History risperidone 2 mg tablet 2 mg PO HS 06/08/18 05/08/22 History sucralfate 1 gram tablet (Carafate) 1 g PO ACHS 06/08/18 05/08/22 History venlafaxine 150 mg 150 mg PO HS 06/08/18 05/08/22 History capsule,extended release 24 hr (Effexor XR) venlafaxine 75 mg capsule,extended 75 mg PO QAM 06/08/18 05/08/22 History release 24 hr (Effexor XR) albuterol sulfate 90 mcg/actuation 1 inh inhalation QID PRN sob 03/28/22 05/08/22 History aerosol inhaler cyanocobalamin (vitamin B-12) 1,000 mcg PO QAM 03/28/22 05/08/22 History 1,000 mcg tablet diphenoxylate-atropine 2.5 2.5 mg PO Q6H PRN Diarrhea 03/28/22 05/08/22 History mg-0.025 mg tablet (Lomotil) famotidine 20 mg tablet 20 mg PO BID 03/28/22 05/08/22 History fluticasone furoate 200 1 inh inhalation QAM 03/28/22 05/08/22 History mcg-vilanterol 25 mcg/dose inhalation powder (Breo Ellipta) furosemide 40 mg tablet 40 mg PO QAM 03/28/22 05/08/22 History loperamide 2 mg tablet 2 mg PO QID 03/28/22 05/08/22 History pantoprazole 40 mg tablet,delayed 80 mg PO QAM 03/28/22 05/08/22 History release trospium 60 mg capsule,extended 60 mg PO QAM 03/28/22 05/08/22 History release 24 hr varenicline 1 mg tablet 1 mg PO BID 03/28/22 05/08/22 History levothyroxine 150 mcg tablet 225 mcg PO 5XWK 04/19/22 05/08/22 History potassium chloride 10 mEq 10 meq PO QAM 04/19/22 05/08/22 History capsule,extended release Past Med/Surg History Medical History Anxiety Asthma Bipolar depression Bipolar disorder Chronic distal aortic occlusion Chronic obstructive pulmonary disease controlled with inhalers Depression GERD (gastroesophageal reflux disease) Herpes labialis per record Hx of basal cell carcinoma Hypertension hx -- recently had blood pressure medication on hold due to hypotension. Hypothyroidism Iliac artery occlusion, left pt unaware Peritonitis (acute) generalized pt unaware Small bowel obstruction (~2018) treated at [facility] with Dr Rosario Stress incontinence Vasculopathy Surgical History H/O exploratory laparotomy History of bowel resection History of cholecystectomy History of colonoscopy History of esophagogastroduodenoscopy (EGD) History of tonsillectomy History of tubal ligation Hx of basal cell carcinoma excision Status post small bowel resection 06/06/18 Dr. Rosario exp lap with SBO, ileostomy mucous fistula Family History Mother Uterine cancer Father Emphysema of lung Other No family history of adverse response to anesthesia Social History Smoking Status: Former smoker Years Smoked: 40; Cigarettes Per Day: 1 ppd x 50 years; Smoking End Date: quit recently, using chantix; Second Hand Exposure: No; Hx Alcohol Use: Yes Alcohol type: hard liquor Alcohol Intake Frequency Comment: 3-4 shots of tequila 4x/week Hx Substance Use: Yes (smokes marijuana daily) Non-Prescribed Medications: Marijuana Non-Prescribed Medications Comment: Daily Last Used Substance: Hours (ago) Last Used Substance Other:: 04/19/22 AM (advised to avoid 3 days prior to procedure) Preferred Language: Tanzanian Communication Ability: Effective Visual Impairment: No Limitations Environmental Conservation Officer Required: No Beliefs That Will Affect Care: None marital status: marital status details: Jordy Chu Current Living Situation: Spouse current occupational status: employed current occupation: [employer] Feels Safe at Home: Yes Assistive Devices: Denture - Upper, Denture - Lower and Glasses Review of Systems Review of Systems: At least ten systems reviewed and negative except as noted in the HPI. Physical Exam Physical Exam: General Appearance: WD/WN, vitals as above, NAD, sitting up in bed, pleasant, conversing easily Head: normocephalic, atraumatic Eyes: normal inspection, PERRL, conjunctivae normal, anicteric sclerae ENT: external ear and nose normal, oropharynx normal Neck: normal visual inspection, trachea midline, no thyromegaly Respiratory: normal respiratory effort, scattered expiratory wheezing bilaterally, no rales or rhonchi. No accessory muscle use Cardiovascular: regular rate, rhythm, no murmur, normal peripheral pulses, no BLE edema. Vessels: no JVD Chest: normal inspection of chest Abdomen/GI: normal bowel sounds, soft, nontender, no hepatosplenomegaly Extremities/Musculoskeletal: no cyanosis or clubbing, extremities motor strength 5/5 Neurologic: PERRL, EOMI, accommodation nl, no face palsy, no dysarthria, CN's II-XI intact bilaterally and moves all extremities Psychiatric: A+Ox3, euthymic affect Skin: no rashes, normal color, warm/dry Results & Data Results & Data ([facility]) Vital Signs (Past 12 Hours) Vital Signs Temp Pulse Pulse Resp BP BP Pulse Ox 05/08/22 16:57 78 21 121/81 98 05/08/22 14:39 89 21 98 05/08/22 13:40 86 18 134/83 98 05/08/22 13:40 36.6 C 86 18 134/83 96 O2 Del Method 05/08/22 16:57 05/08/22 14:39 05/08/22 13:40 Room Air 05/08/22 13:40 Room Air Laboratory Results Short CBC 05/08/22 Range/Units 15:39 WBC 6.76 (4.8-10.8) K/ul Hgb 13.3 (12.0-16.0) g/dl Hct 36.7 (34.1-44.9) % Plt Count 238 (130-400) K/uL BMP 05/08/22 15:39 Sodium 134 L Potassium 2.5 L* Chloride 94 L Carbon Dioxide 33 H BUN 17 Creatinine 0.68 Glucose 82 Calcium 7.8 L Liver Function 05/08/22 Range/Units 15:39 Total Bilirubin 0.9 (0.2-1.0) mg/dl AST 13 (13-39) U/L ALT 11 (7-52) U/L Alkaline Phosphatase 74 (34-104) U/L Albumin 3.0 L (3.4-5.0) gm/dl Code Status & VTE Plan VTE Prophylaxis Plan VTE Prophylaxis will be ordered: Yes Supervising Physician Co-Signing Physician Notes Attending Addendum: care coordinated with SUE Hassan please refer to her notes for full details, I agree with her notes patient seen and examined, records reviewed by myself as well on exam, patient seen resting in bedside chair, comfortable states she feels somewhat better since admission no chest pain, dyspnea, palpitations no other symptoms VS noted and reviewed oriented x3 , not in distress, speaks in sentences with no effort nor accessory muscle use normal rate, regular rhythm, no murmurs clear breath sounds bilaterally non distended, soft, nontender no bipedal edema, erythema, warmth no neuro deficits all labs/imaging reviewed ASSESSMENT AND PLAN HYPOK, HYPOMAGNESEMIA FROM GI LOSSES also takes Lasix daily replace with IV and PO K and Mg repeat labs 9pm then tomorrow morning other diagnoses and plan of care as per SUE Hassan's notes Kar Guzman MD
[2022-05-08] MEDS: POTASSIUM CHLORIDE / WTR 10 MEQ/100 ML PLCT IV SCH ×5 (17:17→23:22)
[2022-05-08] MEDS: MAGNESIUM SULFATE / D5W 1 GM/100 ML BAG IV SCH ×2 (17:35→22:29)
[2022-05-08] MEDS ORDERED: MAGNESIUM SULFATE / D5W 1 GM/100 ML BAG IV ONE ×2 (17:51→23:30)
[2022-05-08] MEDS ORDERED: MAGNESIUM OXIDE 400 MG TAB PO STA (17:52)
[2022-05-08] MEDS ORDERED: POTASSIUM CHLORIDE CRTAB 20 MEQ TABCR PO STA (17:52)
[2022-05-08] MEDS ORDERED: ACETAMINOPHEN 325 MG TAB PO PRN (19:58)
[2022-05-08] MEDS ORDERED: LORazepam 1 MG in SYRINGE 0.5 ML IV PRN (19:58)
[2022-05-08] MEDS ORDERED: ALBUT/IPRATROP 3MG/0.5MG NEB 3 ML VIAL NEB PRN (19:58)
[2022-05-08] MEDS ORDERED: ALBUTEROL HFA 8 GM INHALER INH PRN (19:58)
[2022-05-08] MEDS ORDERED: DIPHENOXYLATE/ATROPINE 2.5/0.025MG TAB PO PRN (19:58)
[2022-05-08] MEDS ORDERED: risperiDONE 2 MG TABLET PO SCH (21:00)
[2022-05-08] MEDS ORDERED: GABAPENTIN 600 MG TAB PO SCH (21:00)
[2022-05-08] MEDS ORDERED: VENLAFAXINE HCL XR 150 MG CAPXR PO SCH (21:00)
[2022-05-08 21:20] LABS: BUN Creatinine Ratio 25.4 (10-20); Calcium 7.6 mg/dl (8.5-10.1); Creatinine Clr Calc Pharmacy 67.2 ml/min; Est GFR (African American) 109.1 ml/min; Est GFR (Non-African American) 94.1 ml/min
[2022-05-08] MEDS: SUCRALFATE 1 GM TAB PO SCH (22:10)
[2022-05-08] MEDS: FAMOTIDINE 20 MG TAB PO SCH (22:11)
[2022-05-08] MEDS: LOPERAMIDE HCL 2 MG CAP PO SCH (22:11)
[2022-05-08] MEDS: HEPARIN SOD 5,000 UNIT/0.5 ML VIAL SQ SCH (22:11)
[2022-05-09] MEDS: POTASSIUM CHLORIDE / WTR 10 MEQ/100 ML PLCT IV SCH (00:20)
[2022-05-09] MEDS ORDERED: LEVOTHYROXINE SODIUM 75 MCG TABLET PO SCH (06:30)
[2022-05-09 06:42] LABS: Hematocrit (blood only) 32.9 % (34.1-44.9); Hemoglobin 11.5 g/dl (12.0-16.0); Mean Corpuscular Hemoglobin 31.9 pg (25.0-34.0); Mean Corpuscular Volume 91.4 fL (80.0-100.0); Mean Platelet Volume 9.8 fL (9.4-12.3); Platelet Count 234 K/uL (130-400); RDW Coefficient of Variation 13.2 % (11.5-14.5); White Blood Count 5.23 K/ul (4.8-10.8)
[2022-05-09 07:03] LABS: BUN Creatinine Ratio 25.8 (10-20); Calcium 7.5 mg/dl (8.5-10.1); Creatinine Clr Calc Pharmacy 64.1 ml/min; Est GFR (African American) 107.4 ml/min; Est GFR (Non-African American) 92.7 ml/min; Potassium 3.3 mmol/L (3.5-5.1)
[2022-05-09] MEDS: FAMOTIDINE 20 MG TAB PO SCH (08:24)
[2022-05-09] MEDS: HEPARIN SOD 5,000 UNIT/0.5 ML VIAL SQ SCH (08:24)
[2022-05-09] MEDS: SUCRALFATE 1 GM TAB PO SCH ×3 (08:24→16:39)
[2022-05-09] MEDS: LOPERAMIDE HCL 2 MG CAP PO SCH ×3 (08:24→16:39)
[2022-05-09] MEDS ORDERED: MAGNESIUM OXIDE 400 MG TAB PO SCH ×2 (09:00)
[2022-05-09] MEDS ORDERED: FLUTICASONE/VILANTEROL 200/25MCG 14 PUFFS/INHALER INH SCH (09:00)
[2022-05-09] MEDS ORDERED: POTASSIUM CHLORIDE CRTAB 20 MEQ TABCR PO SCH (09:00)
[2022-05-09] MEDS ORDERED: PANTOprazole 40 MG TAB PO SCH (09:00)
[2022-05-09] MEDS ORDERED: CYANOCOBALAMIN (B-12) 500 MCG TABLET PO SCH (09:00)
[2022-05-09] MEDS ORDERED: THIAMINE HCL 100 MG TAB PO SCH (09:00)
[2022-05-09] MEDS ORDERED: FOLIC ACID 1 MG TAB PO SCH (09:00)
[2022-05-09] MEDS ORDERED: VENLAFAXINE HCL XR 75 MG CAPXR PO SCH (09:00)
[2022-05-09 13:38] LABS: Appearance Urine Clear (Clear); Bilirubin Urine Negative (Negative); Blood Urine Negative (Negative); Color Urine Yellow; Glucose Urine UA Negative (Negative); Ketones Urine Negative (Negative); Leukocyte Esterase Urine Negative (Negative); Nitrite Urine Negative (Negative); Protein Urine Negative (Negative); Specific Gravity Urine 1.007 (1.000-1.030); Urobilinogen Urine Negative (Negative)
--- NOTE | 2022-05-09 13:51 | Electrocardiogram Report ---
Test Reason : Blood Pressure : / mmHG Vent. Rate : 083 BPM Atrial Rate : 083 BPM P-R Int : 148 ms QRS Dur : 086 ms QT Int : 372 ms P-R-T Axes : 076 -23 073 degrees QTc Int : 437 ms Normal sinus rhythm Low voltage QRS Borderline ECG When compared with ECG of 08-MAY-2022 14:44, Borderline criteria for Inferior infarct are no longer Present Confirmed by Jhon Angel ([id number]) on 05/09/2022 1:50:51 PM Referred By: REFERRED SELF Confirmed By:Jhon Angel
--- NOTE | 2022-05-09 14:22 | Discharge Summary ---
Date of Service May 09, 2022 Admission HPI Per Admitting Provider This is a 67yo with a PMH of hypertension, bipolar disorder, hypothyroidism, history of ischemic small bowel obstruction s/p small bowel resection with ileostomy and eventual reversal, chronic diarrhea and other medical problems listed below who presents with lightheadedness from home. Patient is at home and got up from desk and was walking across the room when she became lightheaded and her legs gave out. She fell to the floor landing on her knees. Denies any head trauma or loss of consciousness. States she had 4 shots of tequila last night and did not have any water to drink or food to eat today. Has history of small bowel obstruction status post resection with chronic diarrhea and intermittent issues with nausea and vomiting. Endorses vomiting episode yesterday. Denies any abdominal pain. No fever, chills, congestion, headache, chest pain, palpitations, shortness of breath, dysuria or constipation. Taking all medications as prescribed. Due to follow-up with GI later this month as well as establishing with Dr. Wen for cardiology. Principal Diagnosis Lightheadedness Hypokalemia Hypomagnesemia Tobacco use Alcohol use Chronic diarrhea Discharge Data Allergies Allergy/AdvReac Type Severity Reaction Status Date / Time No Known Allergies Allergy Verified 05/08/22 14:19 Consultations 05/08/22 16:47 ED Decision to Admit Stat Hospital Course (1) Hypomagnesemia: (2) Hypokalemia: (3) Hydrocephalus: (4) COPD (chronic obstructive pulmonary disease): (5) Hypothyroidism: (6) Bipolar depression: (7) Hypertension: (8) Vasculopathy: (9) Tobacco abuse disorder: Plan 67 yo F presented with acute weakness of her legs with a subsequent fall prior to arrival. Positional lightheadedness with presyncopal symptoms but without true syncope. She has chronic diarrhea and follows with Gastroenterology. Blood work revealed a normal CBC. BMP revealed evidence of prerenal azotemia and she was given intravenous fluids and oral fluids. She did have significant electrolyte abnormalities including a sodium 134, potassium 2.5, calcium 7.8 and magnesium richie 1.5. She was ordered 2 grams magnesium IV and 1 gram of intravenous calcium as well as 20 MEq of potassium chloride IV. She was monitored in the hospital overnight and the following morning was improved overall. She remained in normal sinus rhythm with no events on telemetry. Her repeat electrolytes after rehydration and correction of electrolytes revealed sodium 138, potassium 3.3, mag 2.0. At time of discharge she was free of symptoms and was mentating and ambulating at her baseline. She was hemodynamically stable and afebile and tolerating PO. Physical exam was unremarkable. She was discharged from the hospital in stable condition with close primary care follow-up recommended. Total Time Total Time Spent Total Time Spent (In Minutes): 60 Discharge Plan Discharge Items Patient Disposition: Home - Self-Care Reason For Visit: FALL HYPOMAGNESEMIA, HYPOKALEMIA Discharge Diagnosis: Lightheadedness Hypokalemia Hypomagnesemia Tobacco use Alcohol use Chronic diarrhea Condition on Discharge: Good Activity: Resume your previous activity Non-emergency contact: Primary Care Provider Call non-emergency contact if: you have any medication questions and your sympt oms worsen Follow-up/Referrals: Jacek Rosales MD [Primary Care Provider] - (Date & Time 05/15/2022 11:00 AM Provider Jacek Roasles III, MD Department [facility] ) Diet: Regular Addtl Attending Provider Instructions: Please take all medications as instructed on discharge list below. It is recommended to recheck your electrolytes including magnesium level in 2 weeks time to ensure you are not still having low Mag levels or alterations in these. Chronic diarrhea and Protonix use may contribute to chronic low magnesium. Your urine was clear of any infection. Please stop smoking and consider stopping alcohol use altogether as this may contribute to your symptoms. Both are terrible for your health and can accelerate health problems for you. It was a pleasure taking care of you! Please call if you have any questions or problems. You can reach a [facility] hospitalist on duty at [facility] 24 hours a day by calling [phone]. Take care of yourself. Melani Rush, DO [facility] Hospitalist Pending Studies at Discharge: No Stand-Alone Forms: My [facility], Smoking Cessation Medications and DC Order Prescriptions: Continued sucralfate [Carafate] 1 gram Tablet 1 g PO ACHS gabapentin 600 mg Tablet 600 mg PO HS levothyroxine 150 mcg Tablet 150 mcg PO 2XWK risperidone 2 mg Tablet 2 mg PO HS venlafaxine [Effexor XR] 150 mg Capsule,Extended Release 24hr 150 mg PO HS venlafaxine [Effexor XR] 75 mg Capsule,Extended Release 24hr 75 mg PO QAM furosemide 40 mg tablet 40 mg PO QAM loperamide 2 mg Tablet 2 mg PO QID cyanocobalamin (vitamin B-12) 1,000 mcg Tablet 1,000 mcg PO QAM famotidine 20 mg Tablet 20 mg PO BID pantoprazole 40 mg tablet,delayed release (DR/EC) 80 mg PO QAM albuterol sulfate 90 mcg/actuation Hfa Aerosol Inhaler 1 inh INHALATION QID PRN (Reason: sob) varenicline 1 mg tablet 1 mg PO BID trospium 60 mg capsule,extended release 24hr 60 mg PO QAM fluticasone furoate-vilanterol [Breo Ellipta] 200-25 mcg/dose blister with device 1 inh INHALATION QAM diphenoxylate-atropine [Lomotil] 2.5-0.025 mg tablet 2.5 mg PO Q6H PRN (Reason: Diarrhea) potassium chloride 10 mEq capsule, extended release 10 meq PO QAM levothyroxine 150 mcg Tablet 225 mcg PO 5XWK Discharge Orders: Discharge Order (Routine); Ordered 05/09/22 Ordered By: Melani Rush Admission Data Admit Date/Time: 05/08/22 17:04 Attending Provider: Melani Rush Admit Provider: Kar Guzman Primary Care Provider: Jacek Rosales Other Providers: Kar Guzman Other Interventions: Discharge Summary Assessment (RN) Last Done: 05/09/22 18:32
[2022-05-12] MEDS ORDERED: LEVOTHYROXINE SODIUM 150 MCG TABLET PO SCH (06:30)
== END 2022-05-09 18:41 | disposition home or self-care (01) ==
LOC: ED 13:32 → 4W 17:04 → INTOOBSV 17:04 → SUATTDRO 17:04 → 4W 19:45